=== PATIENT | male | born 2005 | race Caucasian/White ===

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

== ENCOUNTER 2024-07-13 23:58 | Emergency (ER) | payer OTHER, SELFPAY ==
[2024-07-13 23:59] VITALS: BP 136/75; PULSE 59; RESP 16; TEMP 36.2; O2SAT 97; BMI 24.3
--- NOTE | 2024-07-14 00:24 | EX.ED.DYSGE1 ---
HPI History of Present Illness Chief Complaint: Overdose [facility] PFS Medical History no medical history Home Medications ?Medication ?Instructions ?Recorded ?Last Taken ?Type multivitamin with minerals 1 ea PO DAILY 03/20/19 Unknown History clobazam 10 mg tablet 20 mg PO BID 07/13/19 05/11/20 06:45 History midazolam 5 mg/spray (0.1 mL) 5 mg NS PRN PRN Seizure 07/13/19 Unknown History nasal spray lacosamide 200 mg tablet 400 mg PO BID 05/04/20 05/11/20 06:45 History lacosamide 50 mg tablet 600 mg PO BID 05/04/20 05/11/20 06:45 History Allergy/AdvReac Type Severity Reaction Status Date / Time levetiracetam (From Keppra) Allergy Hives Verified 07/14/24 00:02 oxcarbazepine (From Allergy Low Verified 07/14/24 00:02 Trileptal) neutrophils shellfish derived Allergy PT UNABLE Verified 07/14/24 00:02 TO RESPOND-NEEDS F/U codeine AdvReac does not Verified 07/14/24 00:02 work Family History no significant family his Surgical History (Updated 07/14/24 @ 00:32 by Belen Waite) History of appendectomy Social History Smoking Status: Current every day smoker tobacco type: cigarettes EXAM Physical Exam Const Vital Signs: 07/13/24 23:59 07/14/24 01:00 07/14/24 02:00 Temperature 97.2 F L Temperature Source Oral Pulse Rate 59 L 64 Respiratory Rate 16 Blood Pressure 136/75 H 116/68 120/64 Blood Pressure Mean 95 84 82 Pulse Ox 97 100 97 Oxygen Delivery Method Room Air Room Air Room Air 07/14/24 03:00 07/14/24 03:12 Temperature 97.2 F L Temperature Source Pulse Rate 56 L 57 L Respiratory Rate 16 16 Blood Pressure 113/51 L 113/51 L Blood Pressure Mean 71 71 Pulse Ox 99 98 Oxygen Delivery Method Room Air MDM MDM MDM Narrative Medical decision making narrative: HISTORY OF PRESENT ILLNESS: Chief complaint: Accidental overdose 19-year-old male presents with concern for second dose of antiseizure medication taken. Patient notes he took additional doses of 20 mg of Onfi and 60 mg of lacosamide. Initial dose at 7:40 PM and subsequent dose at 9:40 PM. He notes slight fatigue and drowsiness otherwise no other symptomatology noted. No SI, HI endorsed. REVIEW OF SYSTEMS: Pertinent positives: N drowsiness, sleepiness Pertinent negatives: Chest pain, palpitations PHYSICAL EXAM: Nursing triage notes reviewed, Vital signs reviewed Constitutional: please see [facility] HENT: MMM Eyes: Pupils equal round and reactive to light, Extraocular muscles intact Neck: No stridor, no JVD, full neck ROM Lungs: Clear to auscultation, No wheezing or rales. No increased work of breathing, no conversational dyspnea, no accessory muscle use, no nasal flaring. No respiratory distress noted Heart: Regular rate and rhythm, No murmurs, No rubs and No gallops, 2+ distal pulses (radial, femoral, posterior tibial) in all extremities Abdomen: Soft, there is no tenderness, rigidity, rebound or guarding, no obvious peritoneal signs, no palpable pulsatile abdominal masses, no auscultated abdominal bruit : No CVAT Extremities: No edema Neuro: No new focal neurological deficits, cranial nerves II through XII intact, 5/5 strength in all present extremities. Intact sensation to light touch in all present extremities, 2+ reflexes bilateral patella tendons. Skin: No rash or lesions noted MEDICAL DECISION MAKING: Chief Complaint: please see HPI External records reviewed: Reviewed prior medications: Patient is currently on river acetate 100 mg twice daily, clobazam 200 mg twice daily, lacosamide 50 mg twice daily, lacosamide 200 mg twice daily, Versed 5 mg NS as needed for seizure Factors affecting care: seizure disorder Social determinants of health: none History obtained from others: none Consults: Vladislav (Poison Control)?discussed observation [facility] Narrative: Patient was initially hemodynamically stable, afebrile and nontoxic-appearing. Exam unremarkable. No sign of significant central stenosis of depression. ALL IMAGES (IF OBTAINED) HAVE BEEN PERSONALLY REVIEWED AND INTERPRETED BY MYSELF. EKG shows sinus bradycardia, rate of 46, normal axis, prolonged interval, first-degree AV block (no sign of high degree AV block), no STEMI CBC without leukocytosis, severe anemia, no thrombocytopenia. BMP without evidence of significant electrolyte abnormalities, no anion gap, no acute kidney injury. The patient's emergency evaluation fails reveal any life-limiting in the etiology. Lacosamide has a peak plasma time 1 to 4 hours which she was surpassed by time he arrived to the ED. He appeared well. No indication for intubation or further invasive testing at this time Discussed with poison control. Discussed with Vladislav. They recommended discharge after 6 hour obs. The patient and/or family, caregivers express understanding. The patient and/or family, caregivers agrees with the plan. Shared decision making: I will have a discussion with the patient and or visitors regarding risk/benefits of further testing or admission. They will be made aware of of the risk/benefits inherent in this decision they will be given the opportunity to voice understanding. Total critical care time today provided was at least 0 minutes. This excludes separately billable procedures. Critical care time (if documented) is secondary to the patient having high probability of clinically significant/life threatening deterioration in the patient's condition which required my urgent intervention. Impression: 1. Accidental overdose 2. History of seizure Dispo: Discharge home This note was generated with Subtextual dictation software. It may contain incorrect words, spelling, and punctuation that were not noted in review of the chart prior to signing. Lab Data Labs: Laboratory Results - last 24 hr 07/14/24 01:45 WBC 6.8 RBC 4.77 Hgb 14.0 Hct 39.3 L MCV 82.4 MCH 29.4 MCHC 35.6 RDW Std Deviation 37.2 RDW Coeff of Justus 12.3 Plt Count 264 MPV 8.9 Immature Gran % (Auto) 0.100 Neut % (Auto) 52.2 Lymph % (Auto) 35.1 [place] % (Auto) 9.7 Eos % (Auto) 2.6 Baso % (Auto) 0.3 Absolute Neuts (auto) 3.5 Absolute Lymphs (auto) 2.39 Nucleated RBC % 0 Sodium 141 Potassium 3.4 Chloride 103 Carbon Dioxide 25.5 Anion Gap 13 BUN 14 Creatinine 1.13 Estim Creat Clear Calc 120.23 Est GFR (MDRD) Non-Af 95 BUN/Creatinine Ratio 12.2 Glucose 86 Calcium 9.6 Discharge Plan Triage Chief Complaint: Overdose ED Provider: Alex Corley Dx/Rx/DC Orders Clinical Impression: Accidental drug ingestion Instructions: ED Accidental Ingestion ... Prescriptions: No Action multivitamin with minerals 1 EACH tablet 1 ea PO DAILY clobazam 10 MG tablet 20 mg PO BID midazolam 5 MG/0.1 ML spray,non-aerosol 5 mg NS PRN PRN (Reason: Seizure) lacosamide 50 MG tablet 600 mg PO BID lacosamide 200 MG tablet 400 mg PO BID Stand Alone Forms: ED Work / School Excuse Primary Care Provider: Corona Car Referrals: Corona Car MD [Primary Care Provider] - Activity Restrictions/Additional Instructions: Thank you for trusting us with your care today! Please return to the emergency department if your symptoms change or worsen. Please follow with your Neurologist for further outpatient evaluation and management. Print Language: Persian Disposition Disposition: Home, Self Care Discharge Date/Time: 07/14/24 03:36
[2024-07-14 01:00] VITALS: BP 116/68; O2SAT 100
--- OUTSIDE RECORDS SUMMARY | 2024-07-14 01:14 | XMS RPT_ITS | CCD ---
Author Organization [facility] Care Team Providers Care Gear Shaper Set Up Operator Name Role Phone Josep SIMS, Iva Aponte Primary Care Provider [phone] Josep SIMS, Iva Aponte Unavailable Josep SIMS, Iva Aponte Primary Care Provider [phone] Paddy SIMS, Elle Lewis Unavailable Josep SIMS, Iva Aponte Unavailable MARLON CORREA Attending UnavailBRIGID Lozoya Referring Unavailable JOSEP, IVA Aponte Primary Care Unavailable MARLON CORREA Attending Unavailgeri e IVA CAR Primary Care Unavailable Storm Tee Attending Unavailable Iva Car Referring Unavailable Josep, Iva Primary Care Unavailable JOSEP, IVA Aponte Primary Care Unavailable SHAYY MERINO Referring Unavailable JOSEP, IVA Aponte Primary Care Unavailable JOSEP, IVA Aponte Primary Care Unavailable JOSEP, IVA H Primary Care Unavailable IVA CAR Attending Unavailable IVA CAR Primary Care Unavailable Josep SIMS, Iva Aponte Primary Care Provider [phone] Josep SIMS, Iva Aponte Unavailable Allergies Allergy Classification Reported Allergen(s) Allergy Type Date of Onset Reaction(s) Facility (20 sources) Codeine; Translations: [CODEINE] Drug Allergy 0 Other: See Comments, Unknown [facility] Work Phone: (20 sources) levETIRAcetam; Translations: [LEVETIRACETAM] Drug Allergy 0 Rash [facility] (20 sources) OXcarbazepine; Translations: [OXCARBAZEPINE] Drug Allergy 0 Other: See Comments, Rash [facility] (20 sources) Seasonal allergy; Translations: [SEASONAL ALLERGIES] Allergy to substance 8 Cough [facility] Work Phone: (20 sources) Shellfish; Translations: [SHELLFISH CONTAINING PRODUCTS] Drug Allergy 0 Unknown [facility] Work Phone: (1 source) Codeine Drug Allergy 1 [facility] Rep[facility] (1 source) levETIRAcetam Drug Allergy 1 [facility] (1 source) OXcarbazepine Drug Allergy 1 [facility] Medications Current Medications Medication Drug Class(es) Dates Sig (Normalized) Sig (Original) cetirizine hydrochloride 10 mg oral tablet (2 sources) Histamine-1 Receptor Antagonist Start: 06-19-2022 End: 07-19-2022 take 1 tablet by mouth once daily cetirizine (ZYRTEC) 10 mg tablet Indications: Acute urticaria Take 1 tablet by mouth once daily. 30 tablet 0 06/19/2022 07/19/2022 Active Comment on above: Take 1 tablet by lucas once daily. cloBAZam 10 mg oral tablet (20 sources) Benzodiazepine Start: 02-06-2024 End: 08-04-2024 take 2 tablets by mouth twice daily cloBAZam (ONFI) 10 mg tab tablet Indications: Partial epilepsy with intractable epilepsy (HCC) Take 2 tablets by mouth two times a day for 180 days. 360 tablet 1 02/06/2024 08/04/2024 Active Start: 11-06-2022 End: 11-20-2022 take 2 tablets by mouth twice daily cloBAZam (ONFI) 10 mg tab tablet Indications: Partial epilepsy (HCC) Take 2 tablets by mouth twice daily for 14 days. 56 tablet 0 11/06/2022 11/20/2022 Active Start: 01-16-2021 End: 07-29-2024 take 1 tablet by mouth twice daily cloBAZam (ONFI) 10 mg tab tablet Indications: Partial epilepsy with intractable epilepsy (HCC) Take (2) tablets by mouth twice daily (= 40 mg/d) 360 tablet 1 07/31/2023 02/06/2024 Discontinued Start: 07-08-2020 End: 10-14-2020 take 1 tablet by mouth twice daily cloBAZam (ONFI) 10 mg tab tablet Indications: Partial epilepsy with intractable epilepsy (HCC) Take (2) tablets by mouth twice daily (= 40 mg/d) 120 tablet 3 07/08/2020 10/14/2020 Discontinued Comment on above: Take (2) tablets by mouth twice daily (= 40 mg/d) Take 2 tablets by mo [facility] twice daily for 14 days. famotidine 20 mg oral tablet (2 sources) Histamine-2 Receptor Antagonist Start: 06-20-19 End: 07-20-19 take 1 tablet by mouth twice daily famotidine (PEPCID) 20 mg tablet Indications: Acute urticaria Take 1 tablet by mouth twice daily. 60 tablet 0 06/19/2022 07/19/2022 Active Comment on above: [facility] fluticasone propionate 0.05 mg/actuat metered dose nasal spray (4 sources) Corticosteroid Start: 02-11-20 take 2 spray(s) by mouth once daily fluticasone (FLONASE) 50 mcg/actuation nasal spray Use 2 Sprays in each nostril once daily. Rinse mouth after use. 16 g 02/11/2024 Active lacosamide 200 mg oral tablet (20 sources) Anti-epileptic Agent Start: 10-26-19 End: 12-16-19 take 2 tablets by mouth once daily in the morning, then take 3 tablets by mouth once daily at bedtime lacosamide (VIMPAT) 200 mg Indications: Partial epilepsy (HCC) TAKE 2 TABLETS BY MOUTH EVERY MORNING AND 3 TABLETS DAILY AT BEDTIME. 450 tablet 1 06/18/2024 12/15/2024 Active Start: 08-27-2022 End: 08-26-2023 lacosamide (VIMPAT) 200 mg I ndications: Partial epilepsy (HCC) Take 2 tab twice daily (=800 mg/day) 360 tablet 1 08/27/2022 10/25/2022 Discontinued Start: 05-08-2022 End: 05-07-2023 lacosamide (VIMPAT) 150 mg t ab Indications: Partial epilepsy (HCC) Take 1 tab twice daily (takes 2 pill sizes) 180 tablet 1 05/08/2022 08/27/2022 Discontinued Start: 08-16-2021 End: 03-27-2023 lacosamide (VIMPAT) 100 mg t ab Indications: Partial epilepsy (HCC) Take 1 tab twice daily (takes 2 pill sizes) 180 tablet 1 03/28/2022 05/08/2022 Discontinued Start: 01-17-2021 End: 07-28-2022 lacosamide (VIMPAT) 50 mg ta b Indications: Partial epilepsy with intractable epilepsy (HCC) 1 tab twice daily (2 pill sizes) 180 tablet 1 07/28/2021 07/28/2022 Active Start: 01-17-2021 End: 03-27-2023 lacosamide (VIMPAT) 200 mg I ndications: Partial epilepsy (HCC) Take 1 tab twice daily (takes 2 pill sizes) 180 tablet 1 03/28/2022 08/27/2022 Discontinued Start: 04-28-2020 End: 09-16-2020 lacosamide (VIMPAT) 200 mg I ndications: Partial epilepsy with intractable epilepsy (HCC) Take one tablet twice a day 180 tablet 1 04/28/2020 09/16/2020 Discontinued Start: 04-28-2020 End: 07-19-2020 lacosamide (VIMPAT) 50 mg ta b Indications: Partial epilepsy with intractable epilepsy (HCC) 1 tab twice daily (2 pill sizes) 180 tablet 1 04/28/2020 07/19/2020 Discontinued (Discontinued by another Health Care Provider) Comment on above: 1 tab twice daily (2 pill sizes) Take one tablet twic e a day Take one tablet twic e a day (along with 200 mg tabs, = 600 mg/day) Take one tablet twic e a day (along with 100 mg tabs, = 600 mg/day) Take one tablet twic e a day (with 100 mg tabs, = 300 mg/day) Take 1 tab twice rubi ly (takes 2 pill sizes) Take 2 tab twice rubi ly (=800 mg/day) Take 2 tabs in am an d 3 tabs in pm = 1000 mg/d Take 2 tablets by mo uth every morning AND 3 tablets daily at bedtime. mens gummy multivitamin (CENTRUM) chewable tablet (20 sources) take 1 tablet by mouth once daily mens gummy multivitamin (CENTRUM) chewable tablet Take 1 tablet by mouth once daily. Active take 1 tablet by mouth once nicolás y mens gummy multivitamin (CENTRUM) chewable tablet Take 1 tablet by mouth once daily. 0 Active Comment on above: Take 1 tablet by lucas once daily. midazolam 50 mg/ml nasal spray (20 sources) Benzodiazepine Start: 05-07-2022 End: 04-30-2023 midazolam (NAYZILAM) 5 mg/spray (0.1 mL) nasal spray Indications: Partial epilepsy with intractable epilepsy (HCC) Give 5 mg (0.1 ml) as a single dose in ONE nostril for seizure cluster or prolonged seizure lasting > 3 minutes. The same dose may be repeated in 10 minutes in the OTHER nostril if the seizure continues after the first dose. 2 Each 05/07/2022 Active Start: 04-03-2021 End: 03-29-2022 midazolam (NAYZILAM) 5 mg/sp ray (0.1 mL) nasal spray Indications: Partial epilepsy with intractable epilepsy (HCC) Give 5 mg (0.1 ml) as a single dose in ONE nostril for seizure cluster or prolonged seizure lasting > 3 minutes. The same dose may be repeated in 10 minutes in the OTHER nostril if the seizure continues after the first dose. 2 Each 0 04/03/2021 Active Start: 06-10-2020 End: 08-17-2020 midazolam (NAYZILAM) 5 mg/sp ray (0.1 mL) nasal spray Indications: Partial epilepsy with intractable epilepsy (HCC) Give 5 mg (0.1 ml) as a single dose in ONE nostril for seizure cluster or prolonged seizure lasting > 3 minutes. The same dose may be repeated in 10 minutes in the OTHER nostril if the seizure continues after the first dose. 4 [place] 06/10/2020 08/17/2020 Discontinued Comment on above: Give 5 mg (0.1 ml) a s a single dose in ONE nostril for seizure cluster or prolonged seizure lasting > 3 minutes. The same dose may be repeated in 10 minutes in the OTHER nostril if the seizure continues after the first dose. oseltamivir 75 mg oral capsule (1 source) Neuraminidase Inhibitor Start: 4 End: 4 take 1 capsule by mouth twice daily oseltamivir (TAMIFLU) 75 mg capsule Take 1 capsule by mouth two times a day for 5 days. 10 capsule 0 04/28/2023 05/03/2023 Active Comment on above: Take 1 capsule by mo [facility] two times a day for 5 days. Completed/Discontinued Medications Medication Drug Class(es) Dates Sig (Normalized) Sig (Original) brivaracetam 100 mg oral tablet (18 sources) Start: 01-17-2021 End: 01-17-2022 take 1 tablet by mouth twice daily brivaracetam (BRIVIACT) 100 mg tablet Indications: Partial epilepsy with intractable epilepsy (HCC) Take 1 tablet by mouth twice daily. 180 tablet 3 01/17/2021 09/08/2021 Discontinued (Course of therapy completed) Start: 06-30-2020 End: 10-14-2020 take 1 tablet by mouth twice daily brivaracetam (BRIVIACT) 100 mg tablet Indications: Partial epilepsy with intractable epilepsy (HCC) Take 1 tablet by mouth twice daily. 60 tablet 5 06/30/2020 10/14/2020 Discontinued Comment on above: [facility] Problems Active Problems Problem Classification Problem Date Documented Da te Episodic/Chronic Adjustment disorders (20 sources) Adjustment disorder with mixed anxiety and depressed mood; Translations: [Adjustment disorder with mixed anxiety and depressed mood] Onset: 10-14-2020 10-14-2020 Chronic Allergic reactions (1 source) Acute urticaria; Translations: [Other urticaria] Episodic Attention-deficit, conduct, and disruptive behavior disorders (20 sources) Attention deficit hyperactivity disorder, predominantly inattentive type; Translations: [Attention-deficit hyperactivity disorder, predominantly inattentive type] Onset: 11-30-2015 11-30-2015 Chronic Epilepsy; convulsions (20 sources) Refractory localization-related epilepsy; Translations: [Localization-relate d (focal) (partial) symptomatic epilepsy and epileptic syndromes with simple partial seizures, intractable, without status epilepticus] Onset: 03-22-2019 Resolved: 02-29-2020 02-29-2020 Chronic Fever of unknown origin (1 source) Fever; Translations: [Fever, unspecified] Episodic Immunizations and screening for infectious disease (2 sources) Suspected disease caused by 2019-nCoV; Translations: [Suspected COVID-19 virus infection] Episodic Other bone disease and musculoskeletal deformities (1 source) Clavicle pain; Translations: [Other specified disorders of bone, shoulder] 05-31-2022 Episodic Other connective tissue disease (1 source) Pain of left thigh; Translations: [Pain in left thigh] 07-13-2020 Episodic Other eye disorders (1 source) Swelling of eyelid; Translations: [Edema of right eye, unspecified eyelid] 03-31-2023 Episodic Other upper respiratory infections (7 sources) Sore throat symptom; Translations: [Acute pharyngitis, unspecified] Episodic Sprains and strains (1 source) Strain of muscle, fascia and tendon of other parts of biceps, right arm, initial encounter; Translations: [Sprains and strains of other specified sites of shoulder and upper arm] 12-23-2023 Episodic Past or Other Problems Problem Classification Problem Date Documented Da te Episodic/Chronic Appendicitis and other appendiceal conditions (18 sources) Acute appendicitis; Translations: [Unspecified acute appendicitis] Onset: 03-02-2014 Resolved: 11-24-2015 11-24-2015 Episodic Viral infection (20 sources) Infectious mononucleosis; Translations: [Infectious mononucleosis, unspecified without complication] Onset: 03-11-2020 Resolved: 02-06-2021 Episodic Results Test Name Value Interpretation Reference Range Facility CLOBAZAMon 05-02-2024 Clobazam 414.0 ng/mL High 30 - 300 ng/mL [facility] Desmethylclobazam 1130.0 ng/mL 300 - 3000 ng/mL [facility] Comment on above: ADDITIONAL INFORMATION This test was developed and its performance characteristics determined by [facility] in a manner consistent with CLIA requirements. This test has not been cleared or approved by the U.S. Food and Drug Administration. Test Performed by: [facility] - [address] [place] [address] Salon Customer Experience Specialist: Zafar Aviles Ph.D.; CLIA# [id number] Interpretation and review of laboratory results Abnormal [facility] LACOSAMIDEOrdered By: Eduin Oropeza on 05-01-2024 Interpretation and review of laboratory results Normal [facility] Lacosamide [Mass/Vol] 11.6 ug/mL 2.2 - 19.8 ug/mL [facility] Comment on above: Expected concentrati on of patients receiving 200-400 mg/day is 2.2-19.8 ug/mL for Lacosamide. This test was developed, and its performance characteristics determined by the [facility] Department of Pathology and Laboratory Medicine. It has not been cleared or approved by the FDA. The [facility] Department of Pathology and Laboratory Medicine is regulated under CLIA as qualified to perform high-complexity testing. This test is used for clinical purposes. It should not be regarded as investigational or for research. [facility] CLOBAZAMon 04-29-2024 CLOBAZAM 414.0 ng/mL High 30-300 [facility] Comment on above: Order Comment: Erum crowe Type: BLOOD SPECIMEN Ordering Facility: [facility] Address: [address] [place] [address] Performed By: ###Anadn WILD #### [facility] CLIA [id number] [address] [place] [address] DESMETHYLCLOBAZAM 1130.0 ng/mL Normal 300-3000 [facility] Comment on above: Order Comment: Erum crowe Type: BLOOD SPECIMEN Ordering Facility: [facility] Address: [address] [place] [address] Result Comment: ADDITIONAL INFORMATION This test was developed and its performance characteristics determined by [facility] in a manner consistent with CLIA requirements. This test has not been cleared or approved by the U.S. Food and Drug Administration. Test Performed by: [facility] [address] [place] [address] Salon Customer Experience Specialist: Zafar Aviles Ph.D.; CLIA# [id number] Performed By: #### Cynthia WILD #### [facility] CLIA [id number] [address] [place] [address] LACOSAMIDEon 04-29-2024 Lacosamide [Mass/Vol] 11.6 ug/mL Normal 2.2-19.8 [facility] Comment on above: Order Comment: Erum crowe Type: BLOOD SPECIMEN Ordering Facility: [facility] Address: [address] [place] [address] Result Comment: Expe cted concentration of patients receiving 200-400 mg/day is 2.2-19.8 ug/mL for Lacosamide. This test was developed, and its performance characteristics determined by the [facility] Department of Pathology and Laboratory Medicine. It has not been cleared or approved by the FDA. The [facility] Department of Pathology and Laboratory Medicine is regulated under CLIA as qualified to perform high-complexity testing. This test is used for clinical purposes. It should not be regarded as investigational or for research. Performed By: #### L ACOS #### [facility] CLIA [id number] [address] [place] [address] [place] CNOVon 02-24-2024 CNOV Office Visit ([facility] ) ESTRELLA CARROLL ([id number]) 1 M Date Time Provider Department 02/24/24 2:45 PM BRIGIDA RUIZ [facility] During your visit today, we recorded the following information about you: Temperature Pulse Respiration Blood pressure 98.4 degrees 55/minute 17/minute 130/70 Weight 85.3 kg Brigida Ruiz APRN.MERCHANDISER RETAIL REPRESENTATIVE 02/24/2024 2:07 PM Signed Subjective HPI HPI Estrella Carroll is a 19 year old male who presents today for CC of cough/improving, h/a, chills, stomach ache. This started 1 day ago. Has tried otc medication for relief. Symptoms are worsened by nothing. Risk factors sick exposures at home with similar s/s. 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 lacosamide (VIMPAT) 200 mg TAKE 2 TABLETS BY MOUTH EVERY MORNING AND 3 TABLETS DAILY AT BEDTIME. midazolam (NAYZILAM) 5 mg/spray (0.1 mL) nasal spray Give 5 mg (0.1 ml) as a single dose in ONE nostril for seizure cluster or prolonged seizure lasting > 3 minutes. The same dose may be repeated in 10 minutes in the OTHER nostril if the seizure continues after the first dose. mens gummy multivitamin (CENTRUM) chewable tablet Take 1 tablet by mouth once daily. fluticasone (FLONASE) 50 mcg/actuation nasal spray Use 2 Sprays in each nostril once daily. Rinse mouth after use. (Patient not taking: Reported on 02/24/2024) FAMILY HISTORY Problem Relation Age of Onset other (diverticulitis) Maternal Grandmother other (LEUKEMIA) Maternal Grandfather Social History Tobacco Use Smoking status: Never Passive exposure: Never Smokeless tobacco: Never Vaping Use Vaping status: Never Used Substance Use Topics Alcohol use: No Drug use: No Review of Systems Constitutional: Negative for fever. HENT: Negative for congestion, ear pain, nosebleeds and sore throat. Respiratory: Positive for cough. Negative for shortness of breath and wheezing. Gastrointestinal: Negative for constipation, diarrhea, nausea and vomiting. Musculoskeletal: Negative for neck pain. Skin: Negative for itching. Neurological: Positive for headaches. Objective Blood pressure 130/70, pulse (!) 55, temperature 36.9 ?C (98.4 ?F), resp. rate 17, weight 85.3 kg (188 lb 0.8 oz), SpO2 100%. Physical Exam Constitutional: General: He is not in acute distress. Appearance: Normal appearance. He is not toxic-appearing or diaphoretic. HENT: Head: Normocephalic and atraumatic. Mouth/Throat: Lips: [place]. Mouth: Mucous membranes are moist. Pharynx: Oropharynx is clear. Uvula midline. Cardiovascular: Rate and Rhythm: Normal rate and regular rhythm. Heart sounds: Normal heart sounds, S1 normal and S2 normal. Pulmonary: Effort: Pulmonary effort is normal. Breath sounds: Normal breath sounds. Abdominal: General: Bowel sounds are normal. Palpations: Abdomen is soft. Tenderness: There is no abdominal tenderness. Lymphadenopathy: Cervical: No cervical adenopathy. Right cervical: No superficial cervical adenopathy. Left cervical: No superficial cervical adenopathy. Skin: General: Skin is warm and dry. Neurological: Mental Status: He is alert and oriented to person, place, and time. Gait: Gait is intact. ASSESSMENT/PLAN: 1. Viral syndrome - ICD9: 079.99, ICD10: B34.9 - Discussed viral etiology and rationale for treatment. - Symptomatic treatment with prn analgesia - Supportive care with fluids and rest - Follow up in 3-5 days if symptoms persist or sooner if worsening of symptoms Brigida Ruiz APRN.MERCHANDISER RETAIL REPRESENTATIVE Allergies As of Date: 02/24/2024 Noted Allergy Reaction CODEINE 07/14/2019 14 - Other: See Comments 16 - Unknown Comments: Aversion LEVETIRACETAM 04/15/2019 2 - Rash OXCARBAZEPINE 04/16/2019 14 - Other: See Comments 2 - Rash Comments: Neutropenia, hyponatremia SEASONAL ALLERGIES 05/27/2017 3 - Cough SHELLFISH CONTAINING PRODUCTS 08/11/2019 16 - Unknown Comments: Pre caution dad is allergic Date Reviewed: 02/24/2024 Reviewed by: Rola Cheek MA - Fully Assessed Reason for Visit: Abdominal Pain [1] Cmt: Pressure in head(BETHEA), hot and cold chills x 1 day Primary Visit Diagnosis:Viral syndrome [B34.9] Prescriptions as of 02/24/2024 - fluticasone (FLONASE) 50 mcg/actuation nasal sp (more content not included)... Normal [facility] CNOVon 02-11-2024 CNOV Office Visit ([facility] ) ESTRELLA CARROLL ([id number]) 1 M Date Time Provider Department 02/11/24 2:15 PM CA JOHNSON [facility] During your visit today, we recorded the following information about you: Temperature Pulse Respiration Blood pressure 98.8 degrees 76/minute 16/minute 132/78 Weight 86.7 kg Ca Johnson, HANY.MERCHANDISER RETAIL REPRESENTATIVE 02/11/2024 1:56 PM Signed Subjective Sore Throat Associated symptoms include congestion and coughing. Pertinent negatives include no diarrhea, ear pain or vomiting. Estrella Carroll is a 18 year old male who presents with sore throat for the past 3 or 4 days. He had one day of fever at onset of illness. He has had nasal congestion and drainage. He rates his sore throat pain 3/10. Review of Systems Constitutional: Negative for chills, fever and malaise/fatigue. HENT: Positive for congestion and sore throat. Negative for ear pain. Respiratory: Positive for cough. Cardiovascular: Negative. Gastrointestinal: Negative for diarrhea, nausea and vomiting. Musculoskeletal: Negative for myalgias. BP 132/78 Pulse 76 Temp 37.1 ?C (98.8 ?F) (Tympanic) Resp 16 Wt 86.7 kg (191 lb 2.2 oz) SpO2 100% BMI 24.54 kg/m? 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 lacosamide (VIMPAT) 200 mg TAKE 2 TABLETS BY MOUTH EVERY MORNING AND 3 TABLETS DAILY AT BEDTIME. midazolam (NAYZILAM) 5 mg/spray (0.1 mL) nasal spray Give 5 mg (0.1 ml) as a single dose in ONE nostril for seizure cluster or prolonged seizure lasting > 3 minutes. The same dose may be repeated in 10 minutes in the OTHER nostril if the seizure continues after the first dose. mens gummy multivitamin (CENTRUM) chewable tablet Take 1 tablet by mouth once daily. FAMILY HISTORY Problem Relation Age of Onset other (diverticulitis) Maternal Grandmother other (LEUKEMIA) Maternal Grandfather Social History Tobacco Use Smoking status: Never Passive exposure: Never Smokeless tobacco: Never Vaping Use Vaping status: Never Used Substance Use Topics Alcohol use: No Drug use: No Objective Physical Exam Vitals and nursing note reviewed. Constitutional: General: He is not in acute distress. Appearance: Normal appearance. He is not ill-appearing. HENT: Right Ear: Tympanic membrane, ear canal and external ear normal. Left Ear: Tympanic membrane, ear canal and external ear normal. Nose: Congestion and rhinorrhea present. Mouth/Throat: Mouth: Mucous membranes are moist. Pharynx: Uvula midline. Posterior oropharyngeal erythema and postnasal drip present. No oropharyngeal exudate. Cardiovascular: Rate and Rhythm: Normal rate and regular rhythm. Heart sounds: Normal heart sounds. Pulmonary: Effort: Pulmonary effort is normal. No respiratory distress. Breath sounds: Normal breath sounds. No wheezing or rales. Musculoskeletal: Cervical back: Neck supple. Lymphadenopathy: Cervical: No cervical adenopathy. Skin: General: Skin is warm and dry. Findings: No erythema or rash. Neurological: Mental Status: He is alert. ASSESSMENT/PLAN: 1. Sore throat - ICD9: 462, ICD10: J02.9 - suspect viral - Group A strep molecular testing negative - Discussed supportive care treatment with fluids, rest and analgesia. - STREP A MOLECULAR (POC) - flonase nasal spray, cepacol lozenges, chloraseptic spray for sore throat relief. - Follow-up with your PCP in 3-5 days if symptoms have not improved or sooner if symptoms worsen - Discussed red flags and need for immediate medical evaluation if any occur. - Discussed supportive care treatment with fluids, rest and analgesia. - Discussed expected course of illness Ca Johnson APRN.Ca Gastelum APRN.MERCHANDISER RETAIL REPRESENTATIVE 02/11/2024 1:56 PM Signed ASSESSMENT/PLAN: 1. Sore throat - ICD9: 462, ICD10: J02.9 - suspect viral - Group A strep molecular testing negative - Discussed supportive care treatment with fluids, rest and analgesia. - STREP A MOLECULAR (POC) - flonase nasal spray, cepacol lozenges, chloraseptic spray for sore throat relief. - Follow-up with your PCP in 3-5 days if symptoms have not improved or sooner if symptoms worsen - Discussed red flags and need for immediate medical evaluation if any occur. - Discussed supportive care treatment with fluids, rest and analgesia (more content not included)... Normal [facility] STREP A MOLECULAR (POC)on Procedural Control Valid [facility] Strep A (POCT) Negative Negative [facility] Office Visit Reporton 2023 Office Visit Report [facility] [address] [place] [address] OFFICE VISIT Date of Service: 12/25/23 MR#: [id number] Acct: [id number] Patient: ESTRELLA CARROLL Rep #: [id number] : 2005 Provider: CLINT Thomas Age/Sex: 18/M Location: [facility]NOW Status: Signed Intake Vital Signs 05/11/20 11:54 Height 6 ft 2 in Intake Visit Reasons: PE NON DOT DRUG SCREEN/ [facility] Chief Complaint: ABD PAIN Allergies levetiracetam (From Keppra) Allergy (Verified 05/11/20 11:49) Hives oxcarbazepine (From Trileptal) Allergy (Verified 05/11/20 11:49) Low neutrophils codeine Adverse Reaction (Verified 05/11/20 11:49) does not work Office Procedures Now Clinic Billing Sheet Testing Drug Screen Collection Only: Yes 12/25/23 1557 Date Storm JARAMILLO Cosigner Signature: Date (if applicable) CC: [facility] 12-12-2023 CN Office Visit (PEDSWS ) ESTRELLA CARROLL ([id number]) 1 M Date Time Provider Department 12/12/23 10:30 AM IVA CAR PEDSWS During your visit today, we recorded the following information about you: Temperature Pulse Respiration Weight 97.8 degrees 60/minute 14/minute 83.2 kg Iva Car MD 12/23/2023 10:35 AM Signed Estrella Carroll is a 18-year-old [id number] athletic and healthy male who presents to the office today for concerns of right arm and posterior shoulder discomfort present for the last several days after lifting weights. Patient is athletic and is well versed in proper technique. He states the pain is improving. No complaints of weakness or paresthesias in the right arm. 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 PAST MEDICAL HISTORY Diagnosis Date COVID-19 virus infection 03/11/2020 positive PCR test 03/11/20 COVID-19 virus infection 03/11/2020 positive PCR test 03/11/20 Epilepsy (HCC) Partial epilepsy with intractable epilepsy (HCC) 02/29/2020 PAST SURGICAL HISTORY Procedure Laterality Date CIRCUMCISION LAPAROSCOPIC APPENDECTOMY 02-21-14 OPEN TX CLAVICULAR FRACTURE INTERNAL FIXATION ALLERGIES Allergen Reactions Codeine Other: See Comments, Unknown Aversion Levetiracetam Rash Oxcarbazepine Other: See Comments, Rash Neutropenia, hyponatremia Seasonal Allergies Cough Shellfish Containin* Unknown Pre caution dad is allergic 12/12/23 1040 Pulse: 60 Resp: 14 Temp: 36.6 ?C (97.8 ?F) TempSrc: Temporal Weight: 83.2 kg (183 lb 6.4 oz) Inspection: Shoulder: No visible deformities, swelling, or asymmetry. Skin over the shoulder area is intact with no discoloration or scars. Elbow: No deformities, swelling, or redness. Skin is intact without any lesions or scars. Palpation: Shoulder: No tenderness upon palpation of the clavicle, acromioclavicular joint, scapula, or humeral head. No palpable masses or abnormalities. Elbow: No tenderness over the lateral or medial epicondyles, olecranon, or radial head. No warmth or swelling noted. Range of Motion (ROM): Shoulder: Flexion: 0 to 180 degrees Extension: 0 to 60 degrees Abduction: 0 to 180 degrees Adduction: 0 to 50 degrees Internal Rotation: 0 to 90 degrees External Rotation: 0 to 90 degrees Elbow: Flexion: 0 to 150 degrees Extension: 0 degrees (full extension) Pronation: 0 to 80 degrees Supination: 0 to 80 degrees Strength: Shoulder: Muscle strength is 5/5 in all directions (flexion, extension, abduction, adduction, internal rotation, and external rotation). Elbow: Muscle strength is 5/5 for flexion and extension. Special Tests: Shoulder: Negative Neer?s and Hammond-Cristiano tests (impingement). Negative Drop Arm test (rotator cuff integrity). Negative Apprehension test (shoulder stability). Negative Speed's test Elbow: Negative Tinel?s sign over the ulnar nerve. Negative Cozen?s test (lateral epicondylitis). Negative Golfer?s elbow test (medial epicondylitis). Neurovascular: Intact sensation over the shoulder and elbow regions. Radial, ulnar, and brachial pulses are strong and equal bilaterally. ASSESSMENT/PLAN: 1. Biceps strain, right, initial encounter - ICD9: 840.8, ICD10: S46.211A Reassurance given his normal examination. Recommend resting from his particular routine at this time for the next 7 to 10 days. May use ibuprofen 400 mg every 8 hours as needed for pain or discomfort. I spent a total of 25 minutes on the date of the service which included preparing to see the patient, [id number] patient care, completing clinical documentation, obtaining and/or reviewing separately obtained history, performing a medically appropriate examination, counseling and educating the patient/family/caregi joshua, and ordering medications, tests, or procedures. Follow-up prn Iva Car MD [facility] Department of Pediatrics, Mike [facility] Allergies As of Date: 12/12/2023 Noted Allergy Reaction CODEINE 07/14/2019 14 - Other: See Comments 16 - Unknown Comments: Aversion LEVETIRACETAM 04/15/2019 2 - Rash OXCARBAZEPINE 04/16/2019 14 - Other: See Comments 2 - Rash Comments: Neutropenia, hyponatremia SEASONAL ALLERGIES 05/27/2017 3 - Cough SHELLFISH CONTAINING PRODUCTS 08/11/2019 16 - Unknown Comments: Pre caution dad is allergic Date Reviewed: 12/12/2023 Reviewed by: Deana Llamas MA - Fully Assessed Reason for Visit: Back and Arm pain [Other] Cmt: R arm and back pain x4 days Primary Visit Diagnosis:Biceps strain, right, initial encounter [S46.211A] Prescriptions as of 12/23/2023 - lacosamide (VIMPAT) 200 mg TAKE 2 TABLETS BY MOUTH EVERY MORNING AND 3 TABLETS DAILY AT BEDTIME. - cloBAZam (ONFI) 10 mg tab tablet Take (2) tablets by m (more content not included)... Normal [facility] CNOVon 11-27-2023 CNOV Office Visit (NEEPBA ) ESTRELLA CARROLL ([id number]) 1 M Date Time Provider Department 11/27/23 10:20 AM MARLON CORREA During your visit today, we recorded the following information about you: Pulse Respiration Blood pressure Weight 47/minute 16/minute 126/71 81.6 kg Height 1.88 m Marlon Correa MD 11/27/2023 10:37 AM Signed Summary of the things we discussed today: Continue Vimpat and Onfi unchanged. We will check a blood level of your seizure medications. Please have your blood drawn before you take your morning dose of seizure medications or in the evening ( at least 8 hrs after you take your medications). Please call my office if you have more seizures or with any seizure related concerns. Seizure precautions - No driving in the state of [place] until seizure free for 6 months. Please check with local state authorities for state specific driving regulations. - No operating heavy machines - No swimming without supervision or bathing in a bathtub due to risk of drowning in the event of a seizure. Patient may shower. - Avoid unsafe heights, including ladders, due to risk of fall-related injury in the event of a seizure. - Seizure precipitating factors discussed including not taking seizure medications as prescribed, stress, excessive caffeine intake, energy drinks, alcohol, sleep deprivation or any identifiable seizure precipitating factor. Marlon Correa MD Associate Staff, Epilepsy [facility] November 27, 2023 Office phone: [phone] Marlon Correa MD 12/09/2023 2:52 PM Signed [facility] Patient Name: Estrella Carroll Date of : 2005 ESTABLISHED EPILEPSY CLINIC NOTE 11/27/2023 10:20 AM Reason for Visit: Follow Up and Epilepsy Clinical Summary: Mr. Carroll is a 18 year old right-handed male seen in [facility]. EPILEPSY CLASSIFICATION Focal Epilepsy Left hemisphere Seizures: 1. Right Leg Somatosensory Aura -> Right Versive Seizure -> Generalized Tonic-Clonic Seizure HISTORY OF PRESENT ILLNESS Handedness: right-handed Age of onset: Seizure History and Evolution EPILEPSY CLASSIFICATION: Focal epilepsy (left hemisphere) SEIZURES: Right leg somatosensory -> Right versive -> Generalized tonic clonic seizures MRI: Normal ([facility]) ETIOLOGY: Unknown EEG: Left temporo-parietal sharp waves ([facility] - by report - not confirmed upon review of selected samples) ASSOCIATED CONDITIONS: Anxiety, ADHD Weight by report: 89 kg Blaise had onset of seizures at 14 years of age. On 03/20/2019, Blaise had onset of seizures with a cluster of 3 seizures in about 12 hours. The first involved confusion and garbled speech, and the next 2 evolved to generalized tonic clonic convulsion. In retrospect, about a week earlier, he had a missed seizure in his bedroom - he felt the paranoia that he later realized was his aura, walked to close the door, blacked out, and woke up in his bed with a black eye. On 03/20/2019, Blaise was admitted to [facility] where EEG was interpreted to show left temporo-parietal sharp waves {not appreciated on the samples sent for review] and MRI was normal. He was started on oxcarbazepine. Subsequent lab work showed hyponatremia and neutropenia. In late 03/2019, a transition to levetiracetam was initiated. Six days after starting levetiracetam, and about 1 month after starting oxcarbazepine, he developed a whole body rash. Both drugs were stopped, and he was started on clobazam. Since then, seizures have remained a concern. Features included an aura of paranoia and confusion, garbled speech, and tingling in the right foot which spread to the right leg and the then right side of the head for about 45 seconds. He usually signaled the seizure vocally, saying Mom or Dad or grunting. He then lay down on the floor on his side in a position, and as he blacked out his head jerked to the right with evolution to whole body stiffening and tremor with extension of the arms, fisting of the hands, grunting, labored breathing, and foaming at the mouth, without tongue bite or urine loss (video reviewed). Convulsions lasted 60 to 80 seconds, followed by headache and sleep. After medication was started, the tingling began on the right side of the head, without origin in the right foot and leg. In addition, he has also had a few seizures with the typical aura of paranoia and confusion, with garbled speech and no further evolution. All but one of his seizures have occurred while awake. Sleep deprivation is a trigger. Since onset of seizures in 03/2019, Felix has had the following events. - 04/2019 - 1 seizure on clobazam 20 mg/d - 04/2019 to 01/2020 - episodes of brain fog for a few seconds or minutes, with no outward sign, recurring o (more content not included)... Normal [facility]anna 11-22-2023 JEFF Telephone (NE50MN) ESTRELLA CARROLL Ehsan ([id number]) 1 M Date Time Provider Department 11/22/23 MARLON CORREA [id number] During your visit today, we recorded the following information about you: Joanne Mcgarry 11/22/2023 2:39 PM Signed Medication Concern Person Calling Ellen Carroll -mom cell Name of medication vimpat, onfi Concern with medication forgot to take morning dose today. Should he take morning dose now? Patient of Lata Camacho RN 11/22/2023 3:26 PM Signed LCM 400/600 CLB CHOLO Chapa Kelly, APRN.MERCHANDISER RETAIL REPRESENTATIVE 11/22/2023 3:41 PM Signed Yes would take right away and then pm doses late tonight as possible Lata Rose RN 11/22/2023 3:47 PM Signed Informed the patient's mother of recommendations. The patient took ASM's at 3:10, will take PM dose late tonight as possible. Lata Rose RN Allergies As of Date: 11/22/2023 Noted Allergy Reaction CODEINE 07/14/2019 14 - Other: See Comments 16 - Unknown Comments: Aversion LEVETIRACETAM 04/15/2019 2 - Rash OXCARBAZEPINE 04/16/2019 14 - Other: See Comments 2 - Rash Comments: Neutropenia, hyponatremia SEASONAL ALLERGIES 05/27/2017 3 - Cough SHELLFISH CONTAINING PRODUCTS 08/11/2019 16 - Unknown Comments: Pre caution dad is allergic Date Reviewed: 09/09/2023 Reviewed by: Jaime Torres APRN.MERCHANDISER RETAIL REPRESENTATIVE - Fully Assessed Reason for Visit: medication concern [Other] Cmt: vimpat, onfi Prescriptions as of 11/22/2023 - cloBAZam (ONFI) 10 mg tab tablet Take (2) tablets by mouth twice daily (= 40 mg/d) - lacosamide (VIMPAT) 200 mg Take 2 tablets by mouth every morning AND 3 tablets daily at bedtime. - midazolam (NAYZILAM) 5 mg/spray (0.1 mL) nasal spray Give 5 mg (0.1 ml) as a single dose in ONE nostril for seizure cluster or prolonged seizure lasting > 3 minutes. The same dose may be repeated in 10 minutes in the OTHER nostril if the seizure continues after the first dose. - mens gummy multivitamin (CENTRUM) chewable tablet Take 1 tablet by mouth once daily. Meds Comments as of 11/03/2013: Problem List As Of Date 11/22/2023 Noted Resolved Acute appendicitis [K35.80] 03/02/2014 11/24/2015 ADHD, predominantly inattentive type [F90.0] 11/30/2015 Localization-related (focal) (partial) idiopath*03/22/2019 02/29/2020 Partial epilepsy (HCC) [G40.109] 02/29/2020 COVID-19 virus infection [U07.1] 03/11/2020 02/06/2021 Adjustment disorder with mixed anxiety and depr*10/14/2020 Encounter Status:Closed by LATA ROSE on 11/22/23 [facility] CNOVon 09-09-2023 CNOV Office Visit (WSTR ) CARLYESTRELLA ([id number]) 1 M Date Time Provider Department 09/09/23 8:45 AM JAIME TORRES [facility] During your visit today, we recorded the following information about you: Temperature Pulse Respiration Blood pressure 97.6 degrees 65/minute 16/minute 112/64 Weight 83.5 kg Jaime Torres APRN.CM 09/09/2023 9:16 AM Signed This note was created using NoteWriter. Subjective Estrella Ehsan Carroll is a 18 year old male. HPI For the last three days pt has had congestion and a sore throat. Throat seems more painful and dry today. Presents today worried about possible strep throat Review of Systems Constitutional: Negative for fatigue and fever. HENT: Positive for congestion and sore throat. Respiratory: Positive for cough. Objective BP 112/64 Pulse 65 Temp 36.4 ?C (97.6 ?F) (Tympanic) Resp 16 Wt 83.5 kg (184 lb 1.4 oz) SpO2 100% BMI 23.64 kg/m? Physical Exam Vitals and nursing note reviewed. Constitutional: General: He is not in acute distress. Appearance: Normal appearance. He is not ill-appearing. HENT: Head: Normocephalic. Mouth/Throat: Mouth: Mucous membranes are moist. Pharynx: No oropharyngeal exudate or posterior oropharyngeal erythema. Eyes: Conjunctiva/sclera: Conjunctivae normal. Cardiovascular: Rate and Rhythm: Normal rate and regular rhythm. Pulmonary: Effort: Pulmonary effort is normal. Breath sounds: Normal breath sounds. Musculoskeletal: General: Normal range of motion. Cervical back: Normal range of motion. Skin: General: Skin is warm and dry. Neurological: General: No focal deficit present. Mental Status: He is alert. Psychiatric: Mood and Affect: Mood normal. Behavior: Behavior normal. Assessment and Plan ASSESSMENT/PLAN: 1. Sore throat - ICD9: 462, ICD10: J02.9 - suspect viral - Rapid Strep negative in the office today - Discussed supportive care treatment with fluids, rest and analgesia. - The patient may also use OTC decongestants prn, OTC cough and cold meds as needed, and warm salt water gargles, throat lozenges and/or OTC throat spray as needed. - Contagious dz precautions discussed- including considered contagious until on antibiotics for 24 hours - The patient should follow up in one week if symptoms persist or worsen - Call back if drooling, increased temperature, symptoms of dehydration and/or still sick in one week -Patient will be swabbed for COVID to rule out any further causes of his symptoms - STREP A MOLECULAR (POC) - COVID NAAT, UPPER RESPIRATORY, ROUTINE Jaime Torres APRN.MERCHANDISER RETAIL REPRESENTATIVE Allergies As of Date: 09/09/2023 Noted Allergy Reaction CODEINE 07/14/2019 14 - Other: See Comments 16 - Unknown Comments: Aversion LEVETIRACETAM 04/15/2019 2 - Rash OXCARBAZEPINE 04/16/2019 14 - Other: See Comments 2 - Rash Comments: Neutropenia, hyponatremia SEASONAL ALLERGIES 05/27/2017 3 - Cough SHELLFISH CONTAINING PRODUCTS 08/11/2019 16 - Unknown Comments: Pre caution dad is allergic Date Reviewed: 09/09/2023 Reviewed by: Jaime Torres APRN.MERCHANDISER RETAIL REPRESENTATIVE - Fully Assessed Reason for Visit: Sore Throat [200] Cmt: ST and congestion x 3 days Primary Visit Diagnosis:Sore throat [J02.9] Order(s):STREP A MOLECULAR (POC) [[id number]] Order #: [id number]. #:[id number] COVID NAAT, UPPER RESPIRATORY, ROUTINE [SQCOVID] Order #: [id number]. #:[id number] Prescriptions as of 09/11/2023 - cloBAZam (ONFI) 10 mg tab tablet Take (2) tablets by mouth twice daily (= 40 mg/d) - lacosamide (VIMPAT) 200 mg Take 2 tablets by mouth every morning AND 3 tablets daily at bedtime. - midazolam (NAYZILAM) 5 mg/spray (0.1 mL) nasal spray Give 5 mg (0.1 ml) as a single dose in ONE nostril for seizure cluster or prolonged seizure lasting > 3 minutes. The same dose may be repeated in 10 minutes in the OTHER nostril if the seizure continues after the first dose. - mens gummy multivitamin (CENTRUM) chewable tablet Take 1 tablet by mouth once daily. Meds Comments as of 11/03/2013: Problem List As Of Date 09/09/2023 Noted Resolved Acute appendicitis [K35.80] 03/02/2014 11/24/2015 ADHD, predominantly inattentive type [F90.0] 11/30/2015 Localization-related (focal) (partial) idiopath*03/22/2019 02/29/2020 Partial epilepsy (HCC) [G40.109] 02/29/2020 COVID-19 virus infection [U07.1] 03/11/2020 02/06/2021 Adjustment disorder with mixed anxiety and depr*10/14/2020 Letter Text Encounter Status:Closed by JAIME TORRES on 09/09/23 Normal [facility] SARS-CoV-2 RNA Resp Ql LENORE+p immanuel 09-09-2023 SARS-CoV-2 (COVID-19) RNA LENORE+probe Ql (Resp) COVID 19 RESULT: Not detected The method used is RT-PCR or an equivalent NAAT method. Reference Range (the expected result in uninfected individuals): Not detected Normal [facility] Comment on above: Performed By: #### C JUNITO #### [facility] CLIA [id number] [address] [place] [address] STREP A MOLECULAR (POC)on Procedural Control Valid [facility] Strep A (POCT) Negative Negative [facility] Hanna 07-11-2023 CMN Telephone (NE22FT) ESTRELLA CARROLL ([id number]) 1 M Date Time Provider Department 07/11/23 MARLON CORREA [id number] During your visit today, we recorded the following information about you: Gita Haji 07/11/2023 8:32 AM Signed Medication Concern Person Calling Estrella Carroll Name of medication Vimpt and Onfi Concern with medication Patient took morning dose at 7:15 and vomited at 8:15. Should dose be repeated? Patient of Lata Camacho RN 07/11/2023 11:04 AM Signed Informed the patient no need to take another dose of ASM's. Per MICHELLE, he can take an extra 10 mg of CLB in the afternoon. Lata Rose RN Allergies As of Date: 07/11/2023 Noted Allergy Reaction CODEINE 07/14/2019 14 - Other: See Comments 16 - Unknown Comments: Aversion LEVETIRACETAM 04/15/2019 2 - Rash OXCARBAZEPINE 04/16/2019 14 - Other: See Comments 2 - Rash Comments: Neutropenia, hyponatremia SEASONAL ALLERGIES 05/27/2017 3 - Cough SHELLFISH CONTAINING PRODUCTS 08/11/2019 16 - Unknown Comments: Pre caution dad is allergic Date Reviewed: 04/27/2023 Reviewed by: Erendira Robles MA - Fully Assessed Reason for Visit: Medication Problem [65] Cmt: Should AM dose be repeated as patient vomited within 1 hour? Prescriptions as of 07/11/2023 - lacosamide (VIMPAT) 200 mg Take 2 tablets by mouth every morning AND 3 tablets daily at bedtime. - cloBAZam (ONFI) 10 mg tab tablet Take (2) tablets by mouth twice daily (= 40 mg/d) - midazolam (NAYZILAM) 5 mg/spray (0.1 mL) nasal spray Give 5 mg (0.1 ml) as a single dose in ONE nostril for seizure cluster or prolonged seizure lasting > 3 minutes. The same dose may be repeated in 10 minutes in the OTHER nostril if the seizure continues after the first dose. - mens gummy multivitamin (CENTRUM) chewable tablet Take 1 tablet by mouth once daily. Meds Comments as of 11/03/2013: Problem List As Of Date 07/11/2023 Noted Resolved Acute appendicitis [K35.80] 03/02/2014 11/24/2015 ADHD, predominantly inattentive type [F90.0] 11/30/2015 Localization-related (focal) (partial) idiopath*03/22/2019 02/29/2020 Partial epilepsy (HCC) [G40.109] 02/29/2020 COVID-19 virus infection [U07.1] 03/11/2020 02/06/2021 Adjustment disorder with mixed anxiety and depr*10/14/2020 Encounter Status:Closed by LATA ROSE on 07/11/23 Normal [facility] STREP A MOLECULAR (POC)on Procedural Control Valid [facility] Strep A (POCT) Negative Negative [facility] CNOVon 04-01-2023 CNOV Office Visit (NEEPBA ) ESTRELLA CARROLL ([id number]) 1 M Date Time Provider Department 04/01/23 10:00 AM MARLON CORREA During your visit today, we recorded the following information about you: Pulse Respiration Blood pressure Weight 60/minute 16/minute 143/75 86.2 kg Height 1.88 m Marlon Correa MD 04/01/2023 4:23 PM Signed [facility] Patient Name: Estrella Carroll Date of : 2005 Referring Provider Iva Car MD Referring Team, Pediatrics [phone] ESTABLISHED EPILEPSY CLINIC NOTE 04/01/2023 10:00 AM Reason for Visit: New Patient (Transfer of care) and Epilepsy Clinical Summary: Mr. Carroll is a 18 year old right-handed male seen in [facility]. At today's visit, the patient is accompanied by: Both parents Classification Summary HISTORY OF PRESENT ILLNESS Handedness: right-handed Age of onset: Seizure History and Evolution EPILEPSY CLASSIFICATION: Focal epilepsy (left hemisphere) SEIZURES: Right leg somatosensory -> Right versive -> Generalized tonic clonic seizures MRI: Normal ([facility]) ETIOLOGY: Unknown EEG: Left temporo-parietal sharp waves ([facility] - by report - not confirmed upon review of selected samples) ASSOCIATED CONDITIONS: Anxiety, ADHD Weight by report: 89 kg Blaise had onset of seizures at 14 years of age. On 03/20/2019, Blaise had onset of seizures with a cluster of 3 seizures in about 12 hours. The first involved confusion and garbled speech, and the next 2 evolved to generalized tonic clonic convulsion. In retrospect, about a week earlier, he had a missed seizure in his bedroom - he felt the paranoia that he later realized was his aura, walked to close the door, blacked out, and woke up in his bed with a black eye. On 03/20/2019, Blaise was admitted to [facility] where EEG was interpreted to show left temporo-parietal sharp waves {not appreciated on the samples sent for review] and MRI was normal. He was started on oxcarbazepine. Subsequent lab work showed hyponatremia and neutropenia. In late 03/2019, a transition to levetiracetam was initiated. Six days after starting levetiracetam, and about 1 month after starting oxcarbazepine, he developed a whole body rash. Both drugs were stopped, and he was started on clobazam. Since then, seizures have remained a concern. Features included an aura of paranoia and confusion, garbled speech, and tingling in the right foot which spread to the right leg and the then right side of the head for about 45 seconds. He usually signaled the seizure vocally, saying Mom or Dad or grunting. He then lay down on the floor on his side in a position, and as he blacked out his head jerked to the right with evolution to whole body stiffening and tremor with extension of the arms, fisting of the hands, grunting, labored breathing, and foaming at the mouth, without tongue bite or urine loss (video reviewed). Convulsions lasted 60 to 80 seconds, followed by headache and sleep. After medication was started, the tingling began on the right side of the head, without origin in the right foot and leg. In addition, he has also had a few seizures with the typical aura of paranoia and confusion, with garbled speech and no further evolution. All but one of his seizures have occurred while awake. Sleep deprivation is a trigger. Since onset of seizures in 03/2019, Felix has had the following events. - 04/2019 - 1 seizure on clobazam 20 mg/d - 04/2019 to 01/2020 - episodes of brain fog for a few seconds or minutes, with no outward sign, recurring once every other day - exact nature unclear [plus a panic attack in 07/2019, with normal bedside EEG] - 11/2019 to 02/2020 - 1 to 3 seizure per month, all but one with evolution to generalized tonic clonic convulsion, on brivaracetam and clobazam. Most recent seizure (02/17/2020) occurred on brivaracetam 200 mg/d and clobazam 40 mg/d. Blaise had no seizures while on oxcarbazepine for about a month, but with neutropenia, hyponatremia, and rash (6 days after addition of levetiracetam). He was on clobazam alone until 08/2020 then breviracetam alone for about 6 weeks, and then clobazam was added back in 11/2019 and increased to 40 mg/d by 02/2020. Throughout this period, seizures persisted every 2 to 3 weeks. After a seizure on 02/17/2020, Blaise was started on lacosamide 400 mg/d (with clobazam and brivaracetam), with cessation of seizures. SEIZURE OVERVIEW Lacosamide was started after a right sensorimotor -> generalized tonic clonic seizure on 02/17/2020. He has had no further seizures of this type since then. Over time Blaise reported brain fog episodes which have recurred over time since at least early 2019. I just kind of zone out and can't understand words that people are saying for ab (more content not included)... Normal [facility] STREP A MOLECULAR (POC)on Procedural Control Valid [facility] Strep A (POCT) Negative Negative [facility] XR Clavicle - left 2 Viewson 06-01-2022 IMPRESSION: There is a surgical plate with multiple surgical screws along the left clavicle. No new fracture seen. The left acromioclavicular joint space is maintained. No obvious soft tissue swelling. Stunt Driver: [facility] Transcribe Date/Time: Jun 01 2022 8:05A Dictated by : IVAN PORTER MD This examination was interpreted and the report reviewed and electronically signed by: IVAN PORTER MD on Jun 01 2022 8:08AM [facility] DIVISION OF RADIOLOGY * * *Final Report* * * DATE OF EXAM: May 31 2022 3:09PM WOX [id number] - XR CLAVICLE 2V LT / PROCEDURE REASON: Pain of left clavicle * * * * Physician Interpretation * * * * EXAM TITLE: XR CLAVICLE 2V LT EXAM DATE/TIME: 05/31/2022 3:09 PM COMPARISON: None. CLINICAL INDICATION/HISTORY: Pain in the left clavicle. TECHNIQUE: AP and axial views of the left clavicle are presented. FINDINGS AND DIVISION OF RADIOLOGY Provider, [facility] - 06/01/2022 * * *Final Report* * * DATE OF EXAM: May 31 2022 3:09PM WOX [id number] - XR CLAVICLE 2V LT / PROCEDURE REASON: Pain of left clavicle * * * * Physician Interpretation * * * * EXAM TITLE: XR CLAVICLE 2V LT EXAM DATE/TIME: 05/31/2022 3:09 PM COMPARISON: None. CLINICAL INDICATION/HISTORY: Pain in the left clavicle. TECHNIQUE: AP and axial views of the left clavicle are presented. FINDINGS AND IMPRESSION IMPRESSION: There is a surgical plate with multiple surgical screws along the left clavicle. No new fracture seen. The left acromioclavicular joint space is maintained. No obvious soft tissue swelling. Stunt Driver: YESI Transcribe Date/Time: Jun 01 2022 8:05A Dictated by : IVAN PORTER MD This examination was interpreted and the report reviewed and electronically signed by: IVAN PORTER MD on Jun 01 2022 8:08AM EST [facility] XR Clavicle - left 2 ViewsOr dered By: Ccf Provider on 06-01-2022 [facility] XR Clavicle - left 2 Viewson 05-31-2022 Radiology Study observation (narrative) [facility] STREP A MOLECULAR (POC)on Procedural Control Valid [facility] Strep A (POCT) Negative Negative [facility] XR Femur - left AP and Later gesron 07-13-2020 IMPRESSION: Normal 2 views of the left femur Stunt Driver: [facility] Transcribe Date/Time: Jul 13 2020 1:11P Dictated by : EREDNIRA PATHAK MD This examination was interpreted and the report reviewed and electronically signed by: ERENDIRA PATHAK MD on Jul 13 2020 1:12PM EST DIVISION OF RADIOLOGY * * *Final Report* * * DATE OF EXAM: Jul 13 2020 1:09PM WOX [id number] - XR FEMUR 2V AP/LAT LT / PROCEDURE REASON: Left thigh pain * * * * Physician Interpretation * * * * TECHNIQUE: XR FEMUR 2V AP/LAT LT - EXAM DATE: 07/13/2020 1:09 PM CLINICAL HISTORY: Left thigh pain COMPARISON: Left knee dated 04/06/2019 FINDINGS: AP and lateral views of the femur show no fracture or bone destruction. Hip joint spaces well-maintained. There is no suprapatellar joint effusion. DIVISION OF RADIOLOGY Provider, Delilah Liu - 07/13/2020 * * *Final Report* * * DATE OF EXAM: Jul 13 2020 1:09PM WOX [id number] - XR FEMUR 2V AP/LAT LT / PROCEDURE REASON: Left thigh pain * * * * Physician Interpretation * * * * TECHNIQUE: XR FEMUR 2V AP/LAT LT - EXAM DATE: 07/13/2020 1:09 PM CLINICAL HISTORY: Left thigh pain COMPARISON: Left knee dated 04/06/2019 FINDINGS: AP and lateral views of the femur show no fracture or bone destruction. Hip joint spaces well-maintained. There is no suprapatellar joint effusion. IMPRESSION IMPRESSION: Normal 2 views of the left femur Stunt Driver: [facility] Transcribe Date/Time: Jul 13 2020 1:11P Dictated by : ERENDIRA PATHAK MD This examination was interpreted and the report reviewed and electronically signed by: ERENDIRA PATHAK MD on Jul 13 2020 1:12PM EST [facility] Radiology Study observation (narrative) [facility] XR Femur - left AP and Later alOrdered By: Cc Provider on 07-13-2020 [facility] Progress Noteon 05-30-2020 Patient Care Nursing Assistant Authentication Interface Message Text This is a telemedicine video visit requested by the patient/guardian that was performed with the originating site at home and the distant site at office. This visit occurred during the Coronavirus (COVID-19) Public Health Emergency. Reason for Consult/Chief Concern: Seizures. Referring Provider: Elle Thomason Primary Care Doctor: Iva Car MD History of Present Illness (Location, Quality, Severity, Duration, Timing, Context. Modifying Factors, Associated Signs & Symptoms): Estrella Carroll is a 15 y.o. 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 He was last seen in August and a trio-based epilepsy gene panel was recommended. Due to insurance issues and a maternal sample failure in the lab, Estrella's results are only just recently available. Since he was last seen there have not been any major changes to his medical history. He has transferred care to the [facility]. The last three months he has been seizure-free and free of brain fog he was previously experiencing. Past Medical History: History: Uncomplicated . Born full term 8 lbs 1 oz, with no complications at delivery or period. 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 Social History: Lives with parents, two older sisters and one older brother. Family History: Sister, Leslee with anxiety/panic attacks, hx eating disorder, migraines, ADHD, syncope isolated/1x no known etiology SisterSybil, anxiety, supraventricular tachycardia (treated with beta lalo - [facility]. [facility]) Brother, Rudolph, with migraines and asthma (well-controlled), anxiety. Mom - anxiety, hx migraines in teens and early 20's Maternal aunts (2) both with anxiety Maternal grandmother with anxiety Maternal aunt - stillborn with cord accident Maternal aunt shortly after of congenital heart defect Maternal grandfather's aunt with seizures Mother's paternal grandfather with heart issues starting in his 30's; was a smoker and also had occupational exposure to road tar Father - healthy Paternal grandmother's father - seizures Paternal uncle - at No additional reported family hx of seizures, syncope, sudden , SIDS, or defects. Parents are of descent and non-consanguineous. Review of Systems Constitutional: Negative Vision: Negative ENT: Negative Head and Neck: Negative Endocrine: Negative Hematology/Lymphatic: Negative Respiratory: Negative Cardiovascular: Negative Gastrointestinal: Negative : Negative Skin: Negative Musculoskeletal: Negative Neuro: Positive for seizures Psychiatric: Positive for anxiety and history of ADHD Allergy/Immun: Negative Physical Examination Constitutional: General Appearance: Well nourished; well developed; no acute distress Mental Status: Alert, cooperative and interactive Speech: Normal Head: Normocephalic; nondysmorphic Eyes: Normally formed and positioned; straight palpebral fissures Orbits/Palpebrae: Normal eyelashes and eyebrows Nose: Normally formed Ears: Normally formed and positioned Mouth: Normally formed Genetic Testing: Prior Pertinent Imaging Results: MRI 03/21/2019: IMPRESSION: Unremarkable study Other Prior Pertinent Evaluations: EEG 07/14/2019: INTERPRETATION: During 30 hours and 46 minutes of continuous digital EEG/Video monitoring with scalp electrodes, the EEG was within normal limits. No electroclinical or electrographic seizures were seen. No events of concern were highlighted. There were no definitive epileptiform discharges observed. EEG 03/21/2019: INTERPRETATION: During 19 hours 44 minutes of continuous digital EEG/Video monitoring with scalp electrodes, the EEG was abnormal due to the presence of focal spikes and sharps from left temporal/parietal region. Impression: Estrella Carroll is a 15 y.o. boy with localized-related epilepsy whose genetic testing has been non-diagnostic. 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 A variant of uncertain significance is a change in the normal sequence of a gene for which the clinical significance and/or association with disease is unclear. Truly pathogenic de jeronimo mutations in SCN3A result in early infantile epileptic encephalopathy or childhood-onset epilepsy that is difficult to treat and often associated with severe developmental delay/intellectual disability. Variants in SCN3A have also been reporte (more content not included)... Normal [facility] CNNURSEon 05-14-2020 [facility] Visit (LIZET) ESTRELLA CARROLL ([id number]) 1 M Date Time Provider Department 05/14/20 BRIE SONG JR During your visit today, we recorded the following information about you: Allergies As of Date: 05/14/2020 Noted Allergy Reaction LEVETIRACETAM 04/15/2019 2 - Rash OXCARBAZEPINE 04/16/2019 14 - Other: See Comments 2 - Rash Comments: Neutropenia, hyponatremia SEASONAL ALLERGIES 05/27/2017 3 - Cough Date Reviewed: 03/22/2020 Reviewed by: Alethea Miller Ma - Fully Assessed Order(s):[employer] SARS-COV-2 VACCINE 2D DOSE APPT [[id number]] Order #: [id number] Prescriptions as of 05/14/2020 Sig: LACOSAMIDE 200 MG TABLET Take one tablet twice a day LACOSAMIDE 50 MG TABLET 1 tab twice daily (2 pill siz* BRIVARACETAM 100 MG TABLET Take 1 tablet by mouth twice * CLOBAZAM 10 MG TABLET 2 tabs bid = 40 mg/d NAYZILAM 5 MG/SPRAY (0.1 ML) * Give 5 mg (0.1 ml) as a singl* Problem List As Of Date 05/14/2020 Noted Resolved Acute appendicitis [K35.80] 03/02/2014 11/24/2015 ADHD, predominantly inattentive type [F90.0] 11/30/2015 Localization-related (focal) (partial) idiopath*03/22/2019 02/29/2020 Partial epilepsy with intractable epilepsy (HCC*02/29/2020 COVID-19 virus infection [U07.1] 03/11/2020 Encounter Status:Open Normal [facility] Discharge Summaryon 07-15-19 Patient Care Nursing Assistant Authentication Interface Message Text Discharge/Transfer Summary Name: Estrella Carroll MR#: [id number] : 2005 Room #: 6213/01 Age/Sex: 14 y.o. male Admit Date: 07/14/2019 Admitting: Chris Clemens MD Discharge Date: 07/15/2019 Discharged from: [facility] Attending: Matheus Tirado M.D. Final Diagnosis: Pre Focal Seizure Aura Anxiety Significant Findings (Problem List): Active Hospital Problems No active problems to display. Resolved Hospital Problems Diagnosis Date Resolved Seizure-like activity 07/15/2019 Reason for Hospitalization: Altered mental status Discharge Condition: Good Hospital Course (Care, treatment and services provided): Brief Narrative Hospital Course: Estrella is a 14 y.o. 4 m.o. male with known focal epilepsy and ADHD-predominantly inattentive type who presents with altered mental status with aura concerning for possible seizure. No events were captured on video EEG. No evidence of electrographic seizure was observed on EEG. He had an episode of brain fog last night that did not have any electrographic correlate. Unclear if presentation was due to seizure as this is not patient's typical seizure and rescue seizure medication seemed to worsen symptoms. UDS obtained and was positive for benzodiazepines which correlates with rescue midazolam use. PNES vs anxiety attack as potential cause of his symptoms is higher on the differential. No changes to anticonvulsant regimen were made. Discussed reestablishing care with his counselor. As discussed in H&P, that he was able to talk himself down from one of the spells thought to be an aura without progression to clinical seizure raises suspicion for non-epileptic events. Patient remained neurologically and hemodynamically stable. Patient was monitored on cEEG which showed no evidence of epileptiform activity. Discharged with follow-up with neurology on August 10. General: Alert and oriented. No acute distress. Laying comfortably in bed. HEEN: Normocephalic atraumatic. Respiratory: Breath sounds clear and equal to auscultation bilaterally.Good aeration throughout lung dubon. No rales, rhonchi, crackles, or wheezes. Cardiac: Regular rate and rhythm. Normal S1 and S2. No murmur, rubs or gallops. Peripheral pulses equal+2 bilaterally. Abdomen: Soft, nontender, with no organomegaly. No distention. No masses palpable. Bowel sounds present Extremities: Symmetric tone and moving all extremities. No clubbing, cyanosis, or edema Neuro: Fully intact. No acute deficits identified. normal strength 5/5 in upper and lower extremities. Performed by Raymond Arita MD Treatments and procedures with outcomes: No significant invasive procedures Immunizations (administered this admission): none Significant Imaging Results: None Pending Test Results and Tests to Obtain as Outpatient: In-Process Results No orders found from 06/16/2019 to 07/16/2019. Preliminary Results No orders found from 06/16/2019 to 07/16/2019. Disposition: He was discharged to home. Discharge Medications: He did not have significant changes to their home medications (see below): Medication List CONTINUE taking these medications which HAVE NOT changed at this visit Morning Afternoon Evening Bedtime As Needed clobazam 10 MG tablet Take 15 mg by mouth 2 times daily Commonly known as: ONFI [ ] [ ] [ ] [ ] [ ] Discharge Instructions: Instructions/Follow Up Future Labs/Procedures Expected by Expires Follow Up with As directed Comments: Follow up with Dr. Thomason on August 10 as scheduled. [facility] [address] [place], [place] [address] [place] State Law: Child Safety Seat Instructions As directed Comments: It is the [facility] Law that every child under 8 years old must ride in an appropriate child safety seat unless the child is 4'9 or taller. Every child from 8-15 years old who is not secured in a child safety seat must be secured in the vehicle's seat belt. [facility] advises that all motor vehicle passengers be restrained. Patient Instructions As directed Comments: Estrella may go home! He was admitted to assess his auras with continuous EEG to assess for seizure activity. There was no evidence of seizures during hospitalization. We did not make any changes to Estrella's medications. Please continue to monitor for auras and any seizure-like activity. Please follow up with neurologist as instructed on August 10. If Estrella has any change in typical seizure pattern, please contact your neurologist or present to the emergency department. A refill was sent for his intranasal midazolam. Please use this for seizures lasting more than 5 minutes. Discharge Orders Future Labs/Procedures Expected by Expires Activity as tolerated As directed Regular diet for age As directed Signed: Paula Arellano MD 07/15/19 3:34 PM Attending Physician Attestation I reviewed the history and performed a pertinent independent history and physical examination. I agree with the findings described in the note above except for changes as noted by or addition. Management of the patient has been carried out in accordance with my plans. Plan discussed with parents, patient and questions addressed. Counseling and/or coordination of care (face to face) was 45 minutes, which is more than 50% of the total time of 60 minutes spent on this encounter. Matheus Tirado MD, PhD Neurology 07/15/2019 Normal [facility] Drugs of Abuse, Urineon Amphetamines Ql (U) Negative Normal Negative [facility] Comment on above: Result Comment: Thre shold = 1000 ng/mL Performed By: #### D RG #### [facility] [address] [place] [address] Barbiturates Negative Normal Negative [facility] Comment on above: Result Comment: Thre shold = 200 ng/mL Performed By: #### D RG #### [facility] [place] [address] [place] [address] Benzodiazepines Ql (U) Positive Abnormal Negative [facility] Comment on above: Result Comment: Thre shold = 200 ng/mL Performed By: #### D RG #### [facility] [place] [address] [facility] [place] [address] Cocaine Ql (U) Negative Normal Negative [facility] Comment on above: Result Comment: Thre shold = 300 ng/mL Performed By: #### D RG #### [facility] [place] [address] [facility] [place] [address] Methadone Ql (U) Negative Normal Negative [facility] Comment on above: Result Comment: Thre shold = 300 ng/mL Performed By: #### D RG #### [facility] [address] [place] [address] Opiates Ql (U) Negative Normal Negative [facility] Comment on above: Result Comment: Thre shold = 300 ng/mL Performed By: #### D RG #### [facility] [address] [place] [address] Oxycodone Negative Normal Negative [facility] Comment on above: Result Comment: Thre shold = 300 ng/mL Performed By: #### D RG #### [facility] [address] [place] [address] PCP-Phencyclidine Negative Normal Negative [facility] Comment on above: Result Comment: Thre shold = 25 ng/mL Performed By: #### D RG #### [facility] [address] [place] [address] ANITA Test Comment ----- Normal [facility] Comment on above: Result Comment: Note: This testing is intended for medical management and treatment only. Analysis performed using non-forensic procedures. Performed By: #### D RG #### [address] [address] [employer] 07-14-2019 Patient Care Nursing Assistant Authentication Interface Message Text MEDICAL ADMISSION HISTORY AND PHYSICAL Date of Service: 07/14/2019 Attending Provider: Chris Clemens MD Primary Care Provider: Iva Car MD Chief Complaint: Altered mental status Reason for Hospitalization: Acute or unresolved changes in physiologic status History of Present illness: Estrella is a 14 y.o. male with a past medical history of focal epilepsy and ADHD-predominantly inattentive type who presents with altered mental status. He is accompanied by his mother. The history is provided by the patient and mother Mom reports that patient has had episodes of altered mental status 3 times in the last 10 days. Mom recounts first episode as occurring on 07/03 when patient reportedly had aura he described as brain fog that he felt spreading through his body with altered sensation. Mom reports patient thought he was going to seize and then took his home rescue medication (5 mg Midazolam) which seemed to resolve symptoms. Mom reports they spoke with Dr. Malik after this incident who recommended increasing Onfi BID from 10 mg in AM to 15 mg in both AM and PM. Mom reports second episode occurred on 07/10 around 7:30 PM when patient developed similar aura that resolved without needing rescue medication. Most recent episode was 07/12 on DOA which patient states was way worse than initial episode. Patient was at girlfriend's house from 4PM-10PM. Around 10:45 PM, patient called Mom and said he was in his bathroom with similar symptoms from before including aura, as well as feeling like his heart was beating fast and he felt like he was going to . Both patient and Mom state he did not have a seizure. Mom gave him his rescue medication Midazolam and he then became verbally unresponsive for the next 30 minutes. At this time, Mom called 911 where he was then assessed by EMS who did not report any change in breathing. Patient transferred to [place] [facility]. [place] [facility]: Vitals stable. CBC and BMP normal. Patient given IVF bolus x1 and put on CRM. Patient reported he was feeling back to his baseline, but Mom was concerned as she thought patient did not seem to be at his baseline and requested patient be transferred to [facility] for further evaluation. Patient was discussed with Dr. Clemens with Neurology who recommended continuous EEG. On the floor, Mom reports patient seems to be returning to neurological baseline, but states it is difficult to assess as patient is so tired and it is the middle of the night. Patient denies any loss of consciousness. He reports while this episode was occurring, he was aware of things going on around him, but he was unable to speak. Mom reports his baseline seizures consist of aura, head tick, stiffening of extremities that lasts for 30-40 seconds for which it takes 15 minutes to return to baseline. Last reported seizure was April 25. H: Feels safe at home, lives with parents, 3 siblings. E: Goes to school, will be in 11th grade E: Eats well a well balanced diet A: Plays sports, hangs out with friends D: Denies illicit drugs, smoking or chewing tobaco and alcohol use. Mom reports patient was vaping back in February but addressed patient. S: Feels safe at home, with friends, at school, not in an abusive relationship. S: Admits to sexual activity with girlfriend. Reports not using a condom. S: Denies suicidal/homicidal ideations, feells well and not depressed Confidentiality discussed with teen: yes. Confidentiality discussed with Mother Review of Systems: Review of Systems Constitutional: Positive for activity change. Negative for fever. HENT: Positive for sneezing. Negative for congestion. Eyes: Negative for visual disturbance. Respiratory: Negative for cough. Cardiovascular: Positive for palpitations. Gastrointestinal: Negative for blood in stool, diarrhea and vomiting. Genitourinary: Negative for decreased urine volume. Skin: Negative for rash. Allergic/Immunologic: Positive for environmental allergies. Negative for food allergies. Neurological: Positive for speech difficulty. Negative for seizures, facial asymmetry and headaches. Psychiatric/Behaviora l: Negative for sleep disturbance and suicidal ideas. Medical/Surgical History: Past Medical History: Diagnosis Date ADHD (attention deficit hyperactivity disorder) Seizures Past Surgical History: Procedure Laterality Date APPENDECTOMY ORTHOPEDIC SURGERY History: Noncontributory No complications No history on file. Development History: Milestones: All met as expected Diet History: Age appropriate / normal for age Drug/Food Allergies: Allergies Allergen Reactions Codeine Other (See Comments) Aversion Keppra [Levetiracetam] Rash Trileptal [Oxcarbazepine] Other (See Comments) Neutropenia, hyponatremia Immunizations: There is no immunization history on file for this patient. Medications: Medications Prior to Admission Medication Sig Dispense Refill Last Dose clobazam (ONFI) 10 MG tablet Take 15 mg by mouth 2 times daily 07/13/2019 at Unknown time Psych/Social History: Estrella lives with parents and 3 siblings Special Needs: None Preferred Language: Irish Travel: No Pets: Yes: 2 cats, 1 hampster Alcohol/Drug Use or Exposure: No Smoke Exposure: None History reviewed. No pertinent family history. Vital Signs: Vitals: 07/14/19 0305 BP: 109/48 Pulse: 60 Resp: 16 Temp: 36.7 C (98.1 F) Physical Exam: General: Alert and oriented. No acute distress. Laying comfortably in bed. HEEN: Normocephalic atraumatic. Eyes: EOMI. Pupils dilated 4 mm bilaterally, equally reactive to light. Sclera and conjunctiva clear bilaterally. Ears: No discharge Nose: No discharge. Moist nasal mucosa Throat: Moist oral mucosa without erythema or exudates. Uvula midline Neck: Supple and nontender. No lymphadenopathy Respiratory: Breath sounds clear and equal to auscultation bilaterally.Good aeration throughout lung dubon. No rales, rhonchi, crackles, or wheezes. Cardiac: Regular rate and rhythm. Normal S1 and S2. No murmur, rubs or gallops. Peripheral pulses equal+2 bilaterally. Abdomen: Soft, nontender, with no organomegaly. No distention. No masses palpable. Bowel sounds present Extremities: Symmetric tone and moving all extremities. No clubbing, cyanosis, or edema Skin: Warm dry and intact without rash or erythema Neuro: Fully intact. No acute deficits identified. normal strength 5/5 in upper and lower extremities. Agree with exam. Patient sleepy but cooperative, alert, and oriented and answers questions appropriately. Bilateral pupils dilated ~4mm and reactive to light. Diagnostic Studies Reviewed: No results found for this or any previous visit. No orders to display Labs from OSH CBC: WBC 5/7, Hgb 13.2, Hct 38.2, Plt 284 Differential: 0.2 %Band, 35.9 %Lymphs,10.9 %Monocytes BMP: Na 144, K 3.7, Cl 107, HCO3 28.0, BUN 14, Cr 1.04, Glu 101, Ca 8.8 Assessment: Estrella is a 14 y.o. 4 m.o. male with known focal epilepsy and ADHD-predominantly inattentive type who presents with altered mental status with aura concerning for possible seizure. Unclear if presentation due to seizure as this is not patient's typical seizure and rescue seizure medication seemed to worsen symptoms. Cannot rule out illicit substances as etiology for AMS, will therefore obtain urine DOA to evaluate further. Cannot rule out PNES vs anxiety attack as potential cause. Patient currently neurologically and hemodynamically stable, but requires admission for cEEG monitoring for further evaluation of his symptoms. 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 -Continue home AEDS: Onfi 15 mg BID (0700, 1900) -Regular diet -Drugs of abuse to evaluate for additional cause of altered mental status -Seizure contingency: 1mg IV Ativan lasting >5 minutes Education: Discussion with parent/patient (diagnosis, plan) Discharge Planning: Diagnosis unclear at this time; will develop discharge plan as diagnosis becomes clear Sera Silverio DO Pager: [phone] PGY-1 5:17 AM 07/14/2019 Senior Resident Addendum: I personally performed a history and physical examination of this patient, and discussed the patient's management with the actuarial internship and attending. I reviewed the actuarial internship's note, and agree with the essential elements of the history, physical exam, assessement, and plan. Exceptions or additions are or noted in italics. Theodora Cosby DO 07/14/2019 5:38 AM Attending Physician Attestation I reviewed the history and performed a pertinent independent history and physical examination. I agree with the findings described in the note above except for changes as noted by or addition. Management of the patient has been carried out in accordance with my plans. Plan discussed with family and questions addressed. Additions to History, Exam, Assessment, and Plan: Further clarification of recent events. He has had three events that felt like his typical aura that occur prior to his typical clinical seizure. For two of these events, he administered nasal versed. For other event, he was able to talk himself down from having the seizure and the Aura resolved without progression to seizure. This event that lead to his admission involved more altered mental status than what the family expected after receiving nasal versed, as he tolerated his previous dose of nasal versed without issue. There is concern that these events are non-epileptic in nature, but I would recommend cEEG for another night in an attempt to capture the event. No changes to anticonvulsant regiment at this time. Strongly recommended reintegrating with the counseling services he was involved with prior to this, as both he and his family are concerned that his anxiety is potentially a problem. There is a strong family history of anxiety and we did discuss how anxiety can cause similar episodes that may appear like seizures. Counseling and/or coordination of care (face to face) was 35 minutes, which is more than 50% of the total time of 50 minutes spent on this encounter. Matheus Tirado MD, PhD Neurology 07/14/2019 Normal [facility] XR FLUORO 1-2 HRS TECH TIMEo n 05-15-2019 XR FLUORO 1-2 HRS TECH TIME ORIGINAL Images acquired, not reported on this accession number. Normal [facility] ([place]) Vital Signs Date Time Vital Sign Value Performing Clinician Facility 02-24-2024 13:29-0500 Body mass index (BMI) [Ratio] 24.14 kg/m2 Brigida Ruiz APRN.CNP Work Phone: [facility] 02-24-2024 13:29-0500 Body temperature 98.4 [degF] Brigida Joseph EDUCATION AND OUTREACH COORDINATOR.MERCHANDISER RETAIL REPRESENTATIVE Work Phone: [facility] 02-24-2024 13:29-0500 Body weight 85.3 kg Brigida Joseph EDUCATION AND OUTREACH COORDINATOR.MERCHANDISER RETAIL REPRESENTATIVE Work Phone: [facility] 02-24-2024 13:29-0500 Diastolic blood pressure 70 mm[Hg] Brigida Joseph EDUCATION AND OUTREACH COORDINATOR.MERCHANDISER RETAIL REPRESENTATIVE Work Phone: [facility] 02-24-2024 13:29-0500 Heart rate 55 /min Brigida Joseph EDUCATION AND OUTREACH COORDINATOR.MERCHANDISER RETAIL REPRESENTATIVE Work Phone: [facility] 02-24-2024 13:29-0500 Respiratory rate 17 /min Brigida Joseph EDUCATION AND OUTREACH COORDINATOR.MERCHANDISER RETAIL REPRESENTATIVE Work Phone: [facility] 02-24-2024 13:29-0500 SaO2% (BldA) [Mass fraction] 100 % Brigida Ruiz EDUCATION AND OUTREACH COORDINATOR.MERCHANDISER RETAIL REPRESENTATIVE Work Phone: [facility] 02-24-2024 13:29-0500 Systolic blood pressure 130 mm[Hg] Brigida Joseph EDUCATION AND OUTREACH COORDINATOR.MERCHANDISER RETAIL REPRESENTATIVE Work Phone: [facility] 02-11-2024 13:30-0500 Body mass index (BMI) [Ratio] 24.54 kg/m2 Ca Winn-Luis EDUCATION AND OUTREACH COORDINATOR.MERCHANDISER RETAIL REPRESENTATIVE Work Phone: [facility] 02-11-2024 13:30-0500 Body temperature 98.8 [degF] Ca Buttler-Luis EDUCATION AND OUTREACH COORDINATOR.MERCHANDISER RETAIL REPRESENTATIVE Work Phone: [facility] 02-11-2024 13:30-0500 Body weight 86.7 kg Ca Buttler-Luis EDUCATION AND OUTREACH COORDINATOR.MERCHANDISER RETAIL REPRESENTATIVE Work Phone: [facility] 02-11-2024 13:30-0500 Diastolic blood pressure 78 mm[Hg] Ca Praisler-Wood EDUCATION AND OUTREACH COORDINATOR.MERCHANDISER RETAIL REPRESENTATIVE Work Phone: [facility] 02-11-2024 13:30-0500 Heart rate 76 /min Ca Pracelestinoler-Wood EDUCATION AND OUTREACH COORDINATOR.MERCHANDISER RETAIL REPRESENTATIVE Work Phone: [facility] 02-11-2024 13:30-0500 Respiratory rate 16 /min Ca Praisler-Wood EDUCATION AND OUTREACH COORDINATOR.MERCHANDISER RETAIL REPRESENTATIVE Work Phone: [facility] 02-11-2024 13:30-0500 SaO2% (BldA) [Mass fraction] 100 % Ca Praisler-Wood EDUCATION AND OUTREACH COORDINATOR.MERCHANDISER RETAIL REPRESENTATIVE Work Phone: [facility] 02-11-2024 13:30-0500 Systolic blood pressure 132 mm[Hg] Ca Pracelestinoler-Wood EDUCATION AND OUTREACH COORDINATOR.MERCHANDISER RETAIL REPRESENTATIVE Work Phone: [facility] 12-12-2023 10:40-0400 Body mass index (BMI) [Ratio] 23.55 kg/m2 Iva Car MD Work Phone: [facility] 12-12-2023 10:40-0400 Body temperature 97.81 [degF] Iva Car MD Work Phone: [facility] 12-12-2023 10:40-0400 Body weight 83.19 kg Iva Car MD Work Phone: [facility] 12-12-2023 10:40-0400 Heart rate 60 /min Iva Car MD Work Phone: [facility] 12-12-2023 10:40-0400 Respiratory rate 14 /min Iva Car MD Work Phone: [facility] 11-27-2023 10:24-0400 Body height 188 cm Marlon Correa MD Work Phone: [facility] 11-27-2023 10:24-0400 Body mass index (BMI) [Ratio] 23.11 kg/m2 Marlon Correa MD Work Phone: [facility] 11-27-2023 10:24-0400 Body weight 81.65 kg Marlon Correa MD Work Phone: [facility] 11-27-2023 10:24-0400 Diastolic blood pressure 71 mm[Hg] Marlon Correa MD Work Phone: [facility] 11-27-2023 10:24-0400 Heart rate 47 /min Marlon Correa MD Work Phone: [facility] 11-27-2023 10:24-0400 Respiratory rate 16 /min Marlon Correa MD Work Phone: [facility] 11-27-2023 10:24-0400 Systolic blood pressure 126 mm[Hg] Marlon Correa MD Work Phone: [facility] 09-09-2023 08:53-0400 Body mass index (BMI) [Ratio] 23.64 kg/m2 Jaime Moomaw EDUCATION AND OUTREACH COORDINATOR.MERCHANDISER RETAIL REPRESENTATIVE Work Phone: [facility] 09-09-2023 08:53-0400 Body temperature 97.59 [degF] Jaime Moomaw EDUCATION AND OUTREACH COORDINATOR.MERCHANDISER RETAIL REPRESENTATIVE Work Phone: [facility] 09-09-2023 08:53-0400 Body weight 83.5 kg Jaime Moomaw EDUCATION AND OUTREACH COORDINATOR.MERCHANDISER RETAIL REPRESENTATIVE Work Phone: [facility] 09-09-2023 08:53-0400 Diastolic blood pressure 64 mm[Hg] Jaime Moomaw EDUCATION AND OUTREACH COORDINATOR.MERCHANDISER RETAIL REPRESENTATIVE Work Phone: [facility] 09-09-2023 08:53-0400 Heart rate 65 /min Jaime Moomaw EDUCATION AND OUTREACH COORDINATOR.MERCHANDISER RETAIL REPRESENTATIVE Work Phone: [facility] 09-09-2023 08:53-0400 Respiratory rate 16 /min Jaime Moomaw EDUCATION AND OUTREACH COORDINATOR.MERCHANDISER RETAIL REPRESENTATIVE Work Phone: [facility] 09-09-2023 08:53-0400 SaO2% (BldA) [Mass fraction] 100 % Jaime Moomaw EDUCATION AND OUTREACH COORDINATOR.MERCHANDISER RETAIL REPRESENTATIVE Work Phone: [facility] 09-09-2023 08:53-0400 Systolic blood pressure 112 mm[Hg] Jaime Moomaw EDUCATION AND OUTREACH COORDINATOR.MERCHANDISER RETAIL REPRESENTATIVE Work Phone: [facility] 04-27-2023 15:19-0400 Body temperature 98.1 [degF] Masoud Cartagena MD Work Phone: [facility] 04-27-2023 15:19-0400 Body weight 85.3 kg Masoud Cartagena MD Work Phone: [facility] 04-27-2023 15:19-0400 Diastolic blood pressure 84 mm[Hg] Masoud Cartagena MD Work Phone: [facility] 04-27-2023 15:19-0400 Heart rate 88 /min Masoud Cartagena MD Work Phone: [facility] 04-27-2023 15:19-0400 Respiratory rate 16 /min Masoud Cartagena MD Work Phone: [facility] 04-27-2023 15:19-0400 SaO2% (BldA) [Mass fraction] 98 % Masoud Cartagena MD Work Phone: [facility] 04-27-2023 15:19-0400 Systolic blood pressure 128 mm[Hg] Masoud Cartagena MD Work Phone: [facility] 04-01-2023 09:51-0500 Body height 188 cm Marlon Correa MD Work Phone: [facility] 04-01-2023 09:51-0500 Body weight 86.18 kg Marlon Correa MD Work Phone: [facility] 04-01-2023 09:51-0500 Diastolic blood pressure 75 mm[Hg] Marlon Correa MD Work Phone: [facility] 04-01-2023 09:51-0500 Heart rate 60 /min Marlon Correa MD Work Phone: [facility] 04-01-2023 09:51-0500 Respiratory rate 16 /min Marlon Correa MD Work Phone: [facility] 04-01-2023 09:51-0500 Systolic blood pressure 143 mm[Hg] Marlon Correa MD Work Phone: [facility] 03-28-2023 11:55-0500 Body temperature 97.59 [degF] Etta Loving MD Work Phone: [facility] 03-28-2023 11:55-0500 Body weight 87.09 kg Etta Loving MD Work Phone: [facility] 03-28-2023 11:55-0500 Heart rate 64 /min Etta Loving MD Work Phone: [facility] 03-28-2023 11:55-0500 Respiratory rate 14 /min Etta Loving MD Work Phone: [facility] 06-19-2022 11:35-0400 Body temperature 98.1 [degF] Iva Car MD Work Phone: [facility] 06-19-2022 11:35-0400 Body weight 86 kg Iva Car MD Work Phone: [facility] 06-19-2022 11:35-0400 Heart rate 84 /min Iva Car MD Work Phone: [facility] 06-19-2022 11:35-0400 Respiratory rate 16 /min Iva Car MD Work Phone: [facility] 06-14-2022 11:26-0400 Body temperature 100.71 [degF] Jules Pendlebury EDUCATION AND OUTREACH COORDINATOR.MERCHANDISER RETAIL REPRESENTATIVE Work Phone: [facility] 06-14-2022 11:26-0400 Body weight 87.09 kg Jules Pendlejaxon EDUCATION AND OUTREACH COORDINATOR.MERCHANDISER RETAIL REPRESENTATIVE Work Phone: [facility] 06-14-2022 11:26-0400 Diastolic blood pressure 64 mm[Hg] Jules Pendlebury EDUCATION AND OUTREACH COORDINATOR.MERCHANDISER RETAIL REPRESENTATIVE Work Phone: [facility] 06-14-2022 11:26-0400 Heart rate 98 /min Jules Pendlebury EDUCATION AND OUTREACH COORDINATOR.MERCHANDISER RETAIL REPRESENTATIVE Work Phone: [facility] 06-14-2022 11:26-0400 Respiratory rate 18 /min Jules Pendlebury EDUCATION AND OUTREACH COORDINATOR.MERCHANDISER RETAIL REPRESENTATIVE Work Phone: [facility] 06-14-2022 11:26-0400 SaO2% (BldA) [Mass fraction] 99 % Jules Pendlebury EDUCATION AND OUTREACH COORDINATOR.MERCHANDISER RETAIL REPRESENTATIVE Work Phone: [facility] 06-14-2022 11:26-0400 Systolic blood pressure 128 mm[Hg] Jules Self EDUCATION AND OUTREACH COORDINATOR.MERCHANDISER RETAIL REPRESENTATIVE Work Phone: [facility] 03-26-2022 15:18-0500 Body height 187.3 cm Iva Car MD Work Phone: [facility] 03-26-2022 15:18-0500 Body temperature 98.2 [degF] Iva Car MD Work Phone: [facility] 03-26-2022 15:18-0500 Body weight 85.64 kg Iva Car MD Work Phone: [facility] 03-26-2022 15:18-0500 Diastolic blood pressure 74 mm[Hg] Iva Car MD Work Phone: [facility] 03-26-2022 15:18-0500 Heart rate 86 /min Iva Car MD Work Phone: [facility] 03-26-2022 15:18-0500 Respiratory rate 16 /min Iva Car MD Work Phone: [facility] 03-26-2022 15:18-0500 Systolic blood pressure 110 mm[Hg] Iva Car MD Work Phone: [facility] 09-08-2021 11:17-0400 Body temperature 100.99 [degF] Iva Car MD Work Phone: [facility] 09-08-2021 11:17-0400 Body weight 80.92 kg Iva Car MD Work Phone: [facility] 09-08-2021 11:17-0400 Heart rate 64 /min Iva Car MD Work Phone: [facility] 09-08-2021 11:17-0400 Respiratory rate 16 /min Iva Car MD Work Phone: [facility] 09-05-2021 13:54-0400 Body temperature 101.3 [degF] Jaci Marcos APRN.MERCHANDISER RETAIL REPRESENTATIVE Work Phone: [facility] 09-05-2021 13:54-0400 Body weight 82.74 kg Jaci Marcos EDUCATION AND OUTREACH COORDINATOR.MERCHANDISER RETAIL REPRESENTATIVE Work Phone: [facility] 09-05-2021 13:54-0400 Diastolic blood pressure 80 mm[Hg] Jaci Hemant EDUCATION AND OUTREACH COORDINATOR.MERCHANDISER RETAIL REPRESENTATIVE Work Phone: [facility] 09-05-2021 13:54-0400 Heart rate 96 /min Jaci Marcos EDUCATION AND OUTREACH COORDINATOR.MERCHANDISER RETAIL REPRESENTATIVE Work Phone: [facility] 09-05-2021 13:54-0400 Respiratory rate 18 /min Jaci Marcos EDUCATION AND OUTREACH COORDINATOR.MERCHANDISER RETAIL REPRESENTATIVE Work Phone: [facility] 09-05-2021 13:54-0400 SaO2% (BldA) [Mass fraction] 97 % Jaci Marcos EDUCATION AND OUTREACH COORDINATOR.MERCHANDISER RETAIL REPRESENTATIVE Work Phone: [facility] 09-05-2021 13:54-0400 Systolic blood pressure 122 mm[Hg] Jaci Marcos EDUCATION AND OUTREACH COORDINATOR.MERCHANDISER RETAIL REPRESENTATIVE Work Phone: [facility] Encounters Encounter Date Encounter Type Care Provider Facility Start: 06-18-2024 End: 06-18-2024 Refill Shayy Merino APRN.MERCHANDISER RETAIL REPRESENTATIVE Work Phone: [facility] Comment on above: Refill Request Start: 04-29-2024 End: 04-29-2024 ambulatory SHAYY MERINO Facility:[facility] Start: 04-25-2024 End: 05-04-2024 ambulatory Marlon Correa MD Work Phone: [facility]rology [facility] Start: 04-25-2024 End: 05-04-2024 Documentation procedure Marlon Correa MD Work Phone: [facility] Comment on above: BMV Documents Start: 02-24-2024 End: 02-24-2024 Patient encounter procedure Brigida Ruiz EDUCATION AND OUTREACH COORDINATOR.MERCHANDISER RETAIL REPRESENTATIVE Work Phone: [facility] Comment on above: Viral syndrome (Prim roger Dx) Start: 02-24-2024 End: 02-24-2024 ambulatory [facility] Facility:[facility] Start: 02-11-2024 End: 02-11-2024 ambulatory [facility] Facility:[facility] Start: 02-11-2024 End: 02-11-2024 Patient encounter procedure Ca Johnson EDUCATION AND OUTREACH COORDINATOR.MERCHANDISER RETAIL REPRESENTATIVE Work Phone: [facility] Comment on above: Sore throat (Primary Dx) Start: 02-06-2024 End: 02-06-2024 Refill Shayy Stoneashlyn EDUCATION AND OUTREACH COORDINATOR.MERCHANDISER RETAIL REPRESENTATIVE Work Phone: Neurology Comment on above: Refill Request Start: 12-25-2023 End: 12-25-2023 ambulatory Storm JARAMILLO Facility:[facility] Start: 12-19-2023 End: 12-19-2023 Refill Marlon Correa MD Work Phone: Neurology Epilepsy Comment on above: Refill Request Start: 12-12-2023 End: 12-12-2023 ambulatory IVA CAR Facility:[facility] Start: 12-12-2023 End: 12-12-2023 Patient encounter procedure Iva Car MD Work Phone: [facility] Comment on above: Biceps strain, right , initial encounter (Primary Dx) Start: 12-10-2023 End: 12-10-2023 ambulatory Iva Car MD Work Phone: [facility] Comment on above: back injury Start: 11-27-2023 End: 11-27-2023 Patient encounter procedure Marlon Correa MD Work Phone: Neurology Ep[facility]psy Comment on above: Partial epilepsy (HC C) (Primary Dx) Start: 11-27-2023 End: 11-27-2023 ambulatory MARLON CORREA Facility:[facility] Start: 11-22-2023 End: 11-22-2023 Telephone encounter Marlon Correa MD Work Phone: Neurology Comment on above: medication concern ( vimpat, onfi) Start: 09-09-2023 End: 09-09-2023 ambulatory IVA CAR Facility:[facility] Start: 09-09-2023 End: 09-09-2023 Patient encounter procedure Jaime Torres EDUCATION AND OUTREACH COORDINATOR.MERCHANDISER RETAIL REPRESENTATIVE Work Phone: [facility] Comment on above: Sore throat (Primary Dx) Start: 07-30-2023 ambulatory Marlon Correa MD Work Phone: [facility] Ep[facility] Comment on above: Clobazam presription renewal, different pharmacy Refill Request Start: 07-11-2023 ambulatory Marlon Correa MD Work Phone: [facility]rology Ep[facility]psy Comment on above: Medication after vom iting Start: 07-11-2023 Telephone encounter Marlon Correa MD Work Phone: Neurology Comment on above: Medication Problem ( Should AM dose be repeated as patient vomited within 1 hour?) Start: 05-30-2023 ambulatory Marlon Correa MD Work Phone: [facility] Start: 05-30-2023 Documentation procedure Gretchen Correa MD Work Phone: [facility] Comment on above: BMV Documents Start: 05-21-2023 ambulatory Marlon Correa MD Work Phone: [facility] Comment on above: Driving Prviledges Start: 04-28-2023 Telephone encounter Kailee JARAMILLO Work Phone: [facility] Comment on above: Results Start: 04-27-2023 End: 04-27-2023 Patient encounter procedure Masoud Cartagena MD Work Phone: [facility] Comment on above: Sore throat (Primary Dx); Exposure to influenza Start: 04-19-2023 ambulatory Marlon Correa MD Work Phone: [facility] Comment on above: Missed medication do se Start: 04-01-2023 End: 04-01-2023 Patient encounter procedure Marlon Correa MD Work Phone: [facility] Comment on above: Partial epilepsy (HC C) (Primary Dx) Start: 04-01-2023 End: 04-01-2023 ambulatory MARLON CORREA Facility:[facility] Start: 03-28-2023 End: 03-28-2023 Patient encounter procedure Etta Loving MD Work Phone: [facility] [place] Comment on above: Swelling of right ey elid (Primary Dx); Acute upper respiratory infection Start: 01-18-2023 Refill Brigid Eid MD Work Phone: Neurology Comment on above: Refill Request Start: 12-25-2022 Chart abstracting Brigid tai MD Work Phone: Neurology Comment on above: Clinical Update Start: 12-24-2022 Telephone encounter Brigid ledbetter MD Work Phone: Neurology Comment on above: Patient Update (Doin g well on current dose of LCM) Start: 11-21-2022 Telephone encounter Brigid ledbetter MD Work Phone: Neurology Comment on above: medication concern ( lacosamide) Start: 11-17-2022 Refill Trey Butts PA-C Work Phone: Neurology Start: 11-16-2022 Refill Brigid Eid MD Work Phone: Neurology Comment on above: Refill Request Start: 11-12-2022 Refill Brigid Eid MD Work Phone: Neurology Comment on above: Refill Request Start: 10-25-2022 End: 10-25-2022 ambulatory Brigid Eid MD Work Phone: Neurology Comment on above: Partial epilepsy (HC C) (Primary Dx) Start: 10-25-2022 End: 10-25-2022 Telemedicine consultation with patient Brigid Eid MD Work Phone: [facility] [facility] Start: 09-14-2022 ambulatory Brigid Eid MD Work Phone: Neurology Comment on above: BMV form with signed page Start: 09-10-2022 ambulatory Brigid Eid MD Work Phone: [facility] Start: 09-10-2022 Documentation procedure Brigid Eid MD Work Phone: Neurology Comment on above: State Driving docume nts Start: 09-05-2022 Telephone encounter Brigid ledbetter MD Work Phone: Neurology Comment on above: Other (Return call) Start: 08-30-2022 ambulatory Brigid Eid MD Work Phone: [facility] Start: 08-30-2022 Follow-up encounter Brigid ledbetter MD Work Phone: Neurology Comment on above: Follow up to our [facility] tual appointment Start: 08-27-2022 Refill Brigid Eid MD Work Phone: Neurology Comment on above: Treatment Planning Start: 08-23-2022 Telephone encounter Brigid ledbetter MD Work Phone: Neurology Comment on above: General (Incident) Start: 07-11-2022 Refill Brigid Eid MD Work Phone: Neurology Comment on above: Refill Request Start: 06-19-2022 End: 06-19-2022 Patient encounter procedure Iva Car MD Work Phone: [facility] [place] Comment on above: Acute urticaria (Agatha rachel Dx); Viral upper respiratory tract infection Start: 06-14-2022 End: 06-14-2022 Office outpatient visit 15 minutes Jules Self APRN.CNP Work Phone: [facility] Comment on above: Pharyngitis, unspeci fied etiology (Primary Dx); Viral illness Start: 05-31-2022 End: 05-31-2022 Subsequent hospital visit by physician [facility] [place] Work Phone: Radiology Comment on above: Pain of left clavicl e [M89.8X1] Start: 05-07-2022 ambulatory Brigid Eid MD Work Phone: Neurology Comment on above: Further Recommendati ons for Estrella Start: 05-07-2022 Chart abstracting Brigid tai MD Work Phone: Neurology Comment on above: Clinical Update Start: 05-07-2022 Telephone encounter Brigid ledbetter MD Work Phone: Neurology Comment on above: Seizures Start: 05-06-2022 ambulatory Brigid Eid MD Work Phone: Neurology Comment on above: Part 2 of Aura Exper ience Start: 05-05-2022 Refill Brigid Eid MD Work Phone: Neurology Comment on above: Refill Request Start: 05-04-2022 Telephone encounter Radha Nestor carlin APRN.CNP Work Phone: [facility] Comment on above: Patient Update Start: 03-28-2022 End: 03-28-2022 ambulatory Brigid Eid MD Work Phone: Neurology Comment on above: Partial epilepsy (HC C) (Primary Dx); Partial epilepsy with intractable epilepsy (HCC) Start: 03-28-2022 End: 03-28-2022 Telemedicine consultation with patient Brigid Eid MD Work Phone: [facility] Start: 03-26-2022 End: 03-26-2022 Patient encounter procedure Iva Car MD Work Phone: [facility] [place] Comment on above: Encounter for genera l adult medical examination without abnormal findings (Primary Dx) Start: 03-26-2022 End: 03-26-2022 Patient encounter status Iva Car MD Work Phone: [facility] [place] Start: 03-20-2022 ambulatory Brigid Eid MD Work Phone: [facility] Start: 03-20-2022 Telemedicine consult ation with patient Brigid Eid MD Work Phone: Neurology Comment on above: 6 month telemedicine appointment Start: 03-03-2022 Telephone encounter Gregoria costello MD Work Phone: Neurology Comment on above: Medication Problem Start: 01-17-2022 End: 01-17-2022 ambulatory Immun[facility] [place] Work Phone: [facility] [place] Start: 01-14-2022 ambulatory Jackie Billings RN NURSE [employer] Comment on above: Information Start: 12-19-2021 Refill Brigid Eid MD Work Phone: Neurology Comment on above: Refill Request Start: 11-06-2021 Refill Brigid Eid MD Work Phone: Neurology Comment on above: Refill Request Start: 10-09-2021 ambulatory Iva Car MD Work Phone: [facility] Start: 10-09-2021 Documentation procedure Iva Car MD Work Phone: [facility] [place] Comment on above: [facility] Accessibility documents Start: 09-25-2021 Telephone encounter Brigid ledbetter MD Work Phone: Neurology Comment on above: Forms (BMV) Start: 09-24-2021 ambulatory Brigid Eid MD Work Phone: [facility] Start: 09-24-2021 Letter encounter Brigid Eid MD Work Phone: Neurology Comment on above: BMV letter due in 9 days Start: 09-20-2021 ambulatory Brigid Eid MD Work Phone: Neurology Comment on above: [place] [employer] BMV Recertification Form Start: 09-08-2021 End: 09-08-2021 Patient encounter procedure Iva Car MD Work Phone: [facility] [place] Comment on above: Infectious mononucle osis without complication, infectious mononucleosis due to unspecified organism (Primary Dx) Start: 09-07-2021 Telephone encounter Ca Perkins APRN.MERCHANDISER RETAIL REPRESENTATIVE Work Phone: [facility] Comment on above: Results Start: 09-05-2021 End: 09-05-2021 Patient encounter procedure Jaci Marcos APRN.MERCHANDISER RETAIL REPRESENTATIVE Work Phone: [facility] Comment on above: Sore throat (Primary Dx); Fever, unspecified fever cause; Suspected COVID-19 virus infection Start: 09-05-2021 Telephone encounter Jaci Marcos APRN.MERCHANDISER RETAIL REPRESENTATIVE Work Phone: [facility] Medicine [place] Comment on above: Patient Question Start: 08-16-2021 Refill Brigid Eid MD Work Phone: Neurology Comment on above: Refill Request Start: 08-15-2021 End: 08-15-2021 ambulatory Brigid Eid MD Work Phone: Neurology Comment on above: Partial epilepsy (HC C) (Primary Dx) Blaise's Vimpat on hand Start: 08-15-2021 End: 08-15-2021 Telemedicine consultation with patient Brigid Eid MD Work Phone: [facility] Start: 07-28-2021 Refill Brigid Eid MD Work Phone: Neurology Comment on above: Refill Request Start: 07-27-2021 ambulatory Briigd Eid MD Work Phone: Neurology Comment on above: Vimpat (Urgent) Start: 07-26-2021 ambulatory Brigid Eid MD Work Phone: Neurology Comment on above: Estrella's Vimpat Start: 07-24-2021 Refill Brigid Eid MD Work Phone: Neurology Comment on above: Refill Request Start: 07-22-2021 MC Get Medical Advice Brigid ramos MD Work Phone: Neurology Comment on above: Onfi Refill Start: 07-17-2021 GOPAL Get Medical Advice Brigid ramos MD Work Phone: Neurology Comment on above: Visit Reschedule and Vimpat and Clobazam refills Start: 07-13-2021 Telephone encounter Brigid ledbetter MD Work Phone: Neurology Comment on above: Medication Problem ( Vimpat, Briviact, Nayzilam - Pharmacy Needs Verification) Start: 07-04-2021 ambulatory Brigid Eid MD Work Phone: Neurology Comment on above: Vimpat Assistance Start: 07-02-2021 ambulatory Brigid Eid MD Work Phone: Neurology Comment on above: Reschedule Start: 06-21-2021 Chart abstracting Brigid tai MD Work Phone: Neurology Comment on above: Clinical Update Start: 07-13-2020 End: 07-13-2020 Subsequent hospital visit by physician [facility] [place] Work Phone: Radiology Comment on above: Left thigh pain [M79 .652] Procedures Date Procedure Procedure Detail Performing Clinician Start: 02-11-2024 STREP A MOLECULAR (POC) Jules Self EDUCATION AND OUTREACH COORDINATOR.MERCHANDISER RETAIL REPRESENTATIVE Work Phone: Start: 09-09-2023 STREP A MOLECULAR (POC) Jaime Torres EDUCATION AND OUTREACH COORDINATOR.MERCHANDISER RETAIL REPRESENTATIVE Work Phone: Start: 04-27-2023 STREP A MOLECULAR (POC) Masoud Cartagena MD Work Phone: Start: 06-14-2022 STREP A MOLECULAR (POC) Jules Self EDUCATION AND OUTREACH COORDINATOR.MERCHANDISER RETAIL REPRESENTATIVE Work Phone: Start: 05-31-2022 Radex clavicle complete Iva Car MD Work Phone: Start: 01-17-2022 INFLUENZA VACCINE QUADRIVALENT 6 MO - 64 YRS IM Etta Loving MD Work Phone: Start: 09-05-2021 STREP A MOLECULAR (POC) Jaci Marcos EDUCATION AND OUTREACH COORDINATOR.MERCHANDISER RETAIL REPRESENTATIVE Work Phone: Start: 08-15-2021 Adult depression scr eening assessment Brigid Eid MD Work Phone: Start: 01-27-2021 Adult depression scr eening assessment Brigid Eid MD Work Phone: Start: 07-13-2020 Radiologic examinati on femur minimum 2 views Iva Car MD Work Phone: Plan of Treatment Date Care Activity Detail Author Start: 11-27-2024 End: 11-27-2024 Patient encounter procedure 11/27/2024 9:20 AM EDT Office Visit Neurology Epilepsy [address] [place] [address] Marlon Correa MD [address] [place] [address] yearly visit Neurology Epilepsy Comment on above: yearly visit Start: 11-16-2024 Urine microalbumin profile [facility] Start: 10-12-2024 Influenza vaccination Influenz a Vaccine (Season Ended) [facility] Start: 12-12-2023 End: 12-12-2023 Patient encounter procedure 12/12/2023 10:30 AM EDT Office Visit [facility] [place] [address] [place] [address] Iva Car MD [address] [place], [place] [id number] back/right arm pain after lifting weights-over extended and lifted with my back instead of legs Pain in a small area right upper mid back and slight pain in right arm(when doing something such as lifting a gallon of milk). [facility] [place] Comment on above: back/right arm pain after lifting weights-over extended and lifted with my back instead of legs Pain in a small area right upper mid back and slight pain in right arm(when doing something such as lifting a gallon of milk). Start: 11-27-2023 End: 02-26-2024 CLOBAZAM CLOBAZAM Lab Routine Partial epilepsy (HCC) Expected: 11/27/2023, Expires: 02/26/2024 [facility] Comment on above: Expected: 11/27/2023 , Expires: 02/26/2024 Start: 11-27-2023 End: 02-26-2024 LACOSAMIDE LACOSAMIDE Lab Routine Partial epilepsy (HCC) Expected: 11/27/2023, Expires: 02/26/2024 [facility] Work Phone: Comment on above: Expected: 11/27/2023 , Expires: 02/26/2024 Start: 11-27-2023 End: 11-27-2023 Patient encounter procedure 11/27/2023 10:20 AM EDT Office Visit Neurology Epilepsy [address] [address] Marlon Correa MD [address] [place] [address] 6 month follow up Neurology Epilepsy Comment on above: 6 month follow up Start: 10-13-2023 Covid-19 Vaccine ( season) Covid-19 Vaccine () [facility] Start: 10-13-2023 Influenza vaccination Influenza Vacc ine (#1) [facility] Start: 10-04-2023 End: 10-04-2023 Patient encounter procedure 10/04/2023 9:40 AM EDT Office Visit Neurology Epilepsy [address] [facility] [address] [place] [address] Marlon Correa MD [address] [place] [address] 6 month follow up Neurology Epilepsy Comment on above: 6 month follow up Start: 02-11-2023 Behavioral Health Screening Behavioral Health Screening [facility] Start: 02-11-2023 Depression Assessment Depression Ass essment [facility] Start: 10-25-2022 End: 12-25-2022 LACOSAMIDE LACOSAMIDE Lab Routine Partial epilepsy (HCC) Expected: 10/25/2022, Expires: 12/25/2022 [facility] Work Phone: Comment on above: Expected: 10/25/2022 , Expires: 12/25/2022 Start: 10-12-2022 Covid-19 Vaccine () Covid-19 Vaccine () [facility] Start: 10-12-2022 Influenza vaccination [facility] Start: 09-24-2022 End: 11-24-2022 CLOBAZAM CLOBAZAM Lab Routine Partial epilepsy (HCC) Expected: 09/24/2022 (Approximate), Expires: 11/24/2022 [facility] Work Phone: Comment on above: Expected: 09/24/2022 (Approximate), Expires: 11/24/2022 Start: 09-24-2022 End: 11-24-2022 LACOSAMIDE LACOSAMIDE Lab Routine Partial epilepsy (HCC) Expected: 09/24/2022 (Approximate), Expires: 11/24/2022 [facility] Work Phone: Comment on above: Expected: 09/24/2022 (Approximate), Expires: 11/24/2022 Start: 08-15-2022 Adult depression screening assessment DEPRESSION SCREENING [facility] Start: 06-14-2022 End: 06-28-2022 Influenza virus A and B RNA and SARS-CoV-2 (COVID-19) N gene panel - Respiratory specimen by LNEORE with probe detection [facility] Work Phone: Comment on above: Expected: 06/14/2022 , Expires: 06/28/2022 Start: 02-11-2022 DEPRESSION ASSESSMENT DEPRESSION ASS ESSMENT [facility] Start: 01-27-2022 Adult depression screening assessment DEPRESSION SCREENING [facility] Start: 10-12-2021 Influenza vaccination INFLUENZA (#1) [facility] Start: 09-05-2021 End: 11-05-2021 Heterophile Ab [Presence] in Serum by Latex agglutination MONOTEST, INFECTIOUS MONO Lab Routine Sore throat Expected: 09/05/2021, Expires: 11/05/2021 [facility] Work Phone: Comment on above: Expected: 09/05/2021 , Expires: 11/05/2021 Start: 09-05-2021 End: 09-19-2021 Influenza virus A and B RNA and SARS-CoV-2 (COVID-19) N gene panel - Respiratory specimen by LENORE with probe detection [facility] Work Phone: Comment on above: Expected: 09/05/2021 , Expires: 09/19/2021 Start: 04-04-2021 COVID-19 VACCINE (4 - Booster for Pfizer series) COVID-19 VACCINE (4 - Booster for Pfizer series) [facility] Start: 04-04-2021 COVID-19 VACCINE (4 - Pfizer series) COVID-19 VACCINE (4 - Pfizer series) [facility] Start: 2021 Anxiety Screening Anxiety Screening [facility] Start: 2021 Depression Screening Depression Scre ening [facility] Start: 2021 HEPATITIS C SCREENING HEPATITIS C [facility] Start: 2021 Hepatitis C screening Hepatitis C [facility] Start: 2021 HIV SCREENING HIV SCREENING [facility] Start: 2021 HIV screening HIV Screening [facility] Start: 02-11-2021 DEPRESSION ASSESSMENT DEPRESSION ASS ESSMENT [facility] Start: 2019 Meningococcal B Vacc ine (1 of 2 - Standard) Meningococcal B Vaccine (1 of 2 - Standard) [facility] Start: 2019 Meningococcal B Vacc ine: Consider Based On Risk (1 of 2 - Patient Seeks Protection) Meningococcal B Vaccine: Consider Based On Risk (1 of 2 - Patient Seeks Protection) [facility] Start: 2019 MENINGOCOCCAL B: Consider based on risk (1 of 2 - Patient Seeks Protection) MENINGOCOCCAL B: Consider based on risk (1 of 2 - Patient Seeks Protection) [facility] Start: 2017 PEDS TO ADULT TRANSI TION ANNUAL ASSESSMENT PEDS TO ADULT TRANSITION ANNUAL ASSESSMENT [facility] Start: 2013 MENINGOCOCCAL B: Consider based on risk (1 of 2 - Risk Bexsero 2-dose series) MENINGOCOCCAL B: Consider based on risk (1 of 2 - Risk Bexsero 2-dose series) [facility] Influenza virus A an d B RNA and SARS-CoV-2 (COVID-19) N gene panel - Respiratory specimen by LENORE with probe detection COVID & INFLUENZA A/B NAAT, ROUTINE Microbiology Routine Sore throat Exposure to influenza 04/27/2023 3:36 PM EDT [facility] Work Phone: SARS-CoV-2 (COVID-19 ) RNA [Presence] in Respiratory specimen by LENORE with probe detection COVID NAAT, UPPER RESPIRATORY, ROUTINE Microbiology Routine Sore throat Ordered: 09/09/2023 [facility] Work Phone: Comment on above: Ordered: 09/09/2023 [facility] Immunizations Immunization Date Immunization Notes Care Provider [facility] 01-24-2023 influenza, injectabl e, quadrivalent, contains preservative Etta Loving MD Work Phone: [facility] 01-24-2023 influenza virus vaccine, unspecified formulation Jaime Torres EDUCATION AND OUTREACH COORDINATORJeronimoMERCHANDISER RETAIL REPRESENTATIVE Work Phone: [facility] 01-17-2022 influenza, injectabl e, quadrivalent, contains preservative Immunization [place] Work Phone: [facility] Work Phone: 01-17-2022 influenza virus vaccine, unspecified formulation Brigid Eid MD Work Phone: [facility] 02-07-2021 COVID-19 vaccine, ag e 12+ yr (PFIZER-BIONTECH - PURPLE TOP) Brigid Eid MD Work Phone: [facility] 11-30-2020 influenza, injectabl e, quadrivalent, contains preservative Brigid Eid MD Work Phone: [facility] 05-14-2020 COVID-19 vaccine, ag e 12+ yr (PFIZER-BIONTECH - PURPLE TOP) Brigid Eid MD Work Phone: [facility] 04-23-2020 COVID-19 vaccine, ag e 12+ yr (PFIZER-BIONTECH - PURPLE TOP) Brigid Eid MD Work Phone: [facility] 01-15-2020 meningococcal polysaccharide (groups A, C, Y and W-135) diphtheria toxoid conjugate vaccine (MCV4P) Brigid Eid MD Work Phone: [facility] 11-07-2019 influenza, injectabl e, quadrivalent, contains preservative Brigid Eid MD Work Phone: [facility] 11-27-2018 influenza, injectabl e, quadrivalent, preservative free Brigid Eid MD Work Phone: [facility] Work Phone: 12-14-2017 influenza, injectabl e, quadrivalent, contains preservative Brigid Eid MD Work Phone: [facility] 11-23-2016 Human Papillomavirus 9-valent vaccine Brigid Eid MD Work Phone: [facility] 11-23-2016 influenza, injectabl e, quadrivalent, contains preservative Brigid Eid MD Work Phone: [facility] 11-24-2015 Human Papillomavirus 9-valent vaccine Brigid Eid MD Work Phone: [facility] 11-24-2015 influenza, injectabl e, quadrivalent, preservative free Brigid Eid MD Work Phone: [facility] 11-16-2014 influenza, live, intranasal, quadrivalent Brigid Eid MD Work Phone: [facility] 11-16-2014 meningococcal polysaccharide (groups A, C, Y and W-135) diphtheria toxoid conjugate vaccine (MCV4P) Brigid Eid MD Work Phone: [facility] 11-16-2014 tetanus toxoid, redu james diphtheria toxoid, and acellular pertussis vaccine, adsorbed Brigid Eid MD Work Phone: [facility] 11-10-2013 influenza, seasonal, injectable Brigid Eid MD Work Phone: [facility] Work Phone: 11-10-2012 influenza virus vaccine, live, attenuated, for intranasal use Brigid Eid MD Work Phone: [facility] Work Phone: 11-10-2012 varicella virus vaccine Alpesh Eid MD Work Phone: [facility] Work Phone: 02-13-2012 influenza virus vaccine, live, attenuated, for intranasal use Brigid Eid MD Work Phone: [facility] 11-11-2010 influenza virus vaccine, unspecified formulation Brigid Eid MD Work Phone: [facility] 12-01-2009 influenza virus vaccine, live, attenuated, for intranasal use Brigid Eid MD Work Phone: [facility] 01-24-2009 novel [id number], all formulations Brigid Eid MD Work Phone: [facility] Work Phone: 11-29-2008 influenza virus vaccine, live, attenuated, for intranasal use Brigid Eid MD Work Phone: [facility] Work Phone: 04-16-2008 diphtheria, tetanus toxoids and acellular pertussis vaccine Brigid Eid MD Work Phone: [facility] Work Phone: 04-16-2008 measles, mumps and rubella virus vaccine Brigid Eid MD Work Phone: [facility] Work Phone: 04-16-2008 poliovirus vaccine, inactivated Brigid Eid MD Work Phone: [facility] Work Phone: 12-26-2007 influenza virus vaccine, live, attenuated, for intranasal use Brigid Eid MD Work Phone: [facility] Work Phone: 12-23-2006 influenza virus vaccine, unspecified formulation Brigid Eid MD Work Phone: [facility] Work Phone: 01-18-2006 influenza virus vaccine, unspecified formulation Brigid Eid MD Work Phone: [facility] 12-19-2004 influenza virus vaccine, unspecified formulation Brigid Eid MD Work Phone: [facility] Work Phone: 05-26-2004 diphtheria, tetanus toxoids and acellular pertussis vaccine Brigid Eid MD Work Phone: [facility] 05-26-2004 haemophilus influenz ae type b vaccine, HbOC conjugate Brigid Eid MD Work Phone: [facility] 05-26-2004 pneumococcal conjuga te vaccine, 7 valent Brigid Eid MD Work Phone: [facility] 02-28-2004 measles, mumps and rubella virus vaccine Brigid Eid MD Work Phone: [facility] 02-28-2004 varicella virus vaccine Alpesh Eid MD Work Phone: [facility] 2003 influenza virus vaccine, unspecified formulation Brigid Eid MD Work Phone: [facility] 2003 diphtheria, tetanus toxoids and acellular pertussis vaccine Brigid Eid MD Work Phone: [facility] 2003 haemophilus influenz ae type b vaccine, HbOC conjugate Brigid Eid MD Work Phone: [facility] 2003 hepatitis B vaccine, pediatric or pediatric/adolescent dosage Brigid Eid MD Work Phone: [facility] 2003 pneumococcal conjuga te vaccine, 7 valent Brigid Eid MD Work Phone: [facility] 2003 poliovirus vaccine, inactivated Brigid Eid MD Work Phone: [facility] 2003 diphtheria, tetanus toxoids and acellular pertussis vaccine Brigid Eid MD Work Phone: [facility] 2003 haemophilus influenz ae type b vaccine, HbOC conjugate Brigid Eid MD Work Phone: [facility] 2003 pneumococcal conjuga te vaccine, 7 valent Brigid Eid MD Work Phone: [facility] 2003 poliovirus vaccine, inactivated Brigid Eid MD Work Phone: [facility] 2003 diphtheria, tetanus toxoids and acellular pertussis vaccine Brigid Eid MD Work Phone: [facility] 2003 haemophilus influenz ae type b vaccine, HbOC conjugate Brigid Eid MD Work Phone: [facility] 2003 hepatitis B vaccine, pediatric or pediatric/adolescent dosage Brigid Eid MD Work Phone: [facility] 2003 pneumococcal conjuga te vaccine, 7 valent Brigid Eid MD Work Phone: [facility] 2003 poliovirus vaccine, inactivated Brigid Eid MD Work Phone: [facility] 2003 hepatitis B vaccine, pediatric or pediatric/adolescent dosage Brigid Eid MD Work Phone: [facility] Payers Date Payer Category Payer Self-pay 2022 Private Health Insurance [id number] 2021 Private Health Insurance [employer] Aniya WHALEN PPO [id number] 2021-Present [phone] [address] [place] [address] PPO [id number] 2020 Private Health Insurance xxx [id number] 2019 Private Health Insurance [id number] Unknown [id number] Social History Date Type Detail Facility Start: 07-25-2010 End: 04-01-2023 Tobacco smoking status NHIS Never smoked tobacco [facility] Work Phone: Start: 02-06-2021 End: 02-24-2024 Alcohol intake Current non-drinker of alcohol (finding) [facility] Start: 01-24-2021 History SDOH Physica l Activity DPW 4 [facility] Start: 01-24-2021 History SDOH Physica l Activity MPS 6 [facility] Start: 01-24-2021 End: 09-05-2021 History SDOH Food Worry 1 [facility] Start: 01-24-2021 End: 03-26-2022 History SDOH Transport Med 2 [facility] Start: 2003 Sex Assigned At Male [facility] Start: 06-12-2020 End: 09-05-2021 Exposure to SARS-CoV-2 (event) Not sure [facility] Start: 07-25-2010 End: 04-01-2023 Tobacco use and exposure Smokeless tobacco non-user [facility] Work Phone: Start: 03-26-2022 History SDOH Social Connections Living 7 [facility] Start: 03-26-2022 History SDOH Physica l Activity MPS 12 [facility] Start: 03-26-2022 End: 06-19-2022 History of Social function [facility] Start: 03-26-2022 End: 06-19-2022 Social connection and isolation panel [facility] Frequency of Communication with Friends and Family Not on file [facility] Are you now , , , , never or living with a partner? Never [facility] How hard is it for y ou to pay for the very basics like food, housing, medical care, and heating Not very hard [facility] (I/We) worried wheth er (my/our) food would run out before (I/we) got money to buy more. Never true [facility] In the past 12 month s, was there a time when you were not able to pay the mortgage or rent on time? No [facility] [facility] Start: 01-01-2020 Gender identity Identifies as male gender (finding) [facility] Start: 01-01-2020 Sexual orientation Heterosexual (jennifer adamson) [facility] NEGATED: Highlighted rowStart: GERARDOF History of tobacco use Passive smoker [facility] Functional Status Date Assessment Result Facility 03-02-2014 Are you deaf, or do you have serious difficulty hearing No 03/02/2014 3:57 PM Tammy Carey RN No [facility] 03-02-2014 Are you blind, or do you have serious difficulty seeing, even when wearing glasses No 03/02/2014 3:57 PM Tammy Carey RN No [facility] 03-02-2014 Do you have serious difficulty walking or climbing stairs No 03/02/2014 3:57 PM Tammy Carey RN No [facility] 03-02-2014 Do you have difficul ty dressing or bathing No 03/02/2014 3:57 PM Tammy Carey RN No [facility] Mental Status Date Assessment Result Facility 03-02-2014 Because of a physica l, mental, or emotional condition, do you have serious difficulty concentrating, remembering, or making decisions No 03/02/2014 3:57 PM Tammy Carey RN No [facility] Clinical Notes 03-11-2020 to 06-18-2024 Telephone Encounter - Shayy Merino APRN.CM - 06/18/2024 11:37 AM EDTTelephone Encounter - Shayy Meirno APRN.CNP - 06/18/2024 11:37 AM LOUTBrigida Ruiz APRN.CNP - 02/24/2024 1:40 PM EST Note Date & Type Note Facility 06-18-2024 Telephone encounter Note The following approved medication requests have been transmitted electronically. Requested Prescriptions Signed Prescriptions Disp Refills lacosamide (VIMPAT) 200 mg 450 tablet 1 Sig: TAKE 2 TABLETS BY MOUTH EVERY MORNING AND 3 TABLETS DAILY AT BEDTIME. Authorizing Provider: SHAYY MERINO APRN.[employer]CH[employer] RETAIL REPRESENTATIVE [facility] 06-18-2024 Miscellaneous Notes The following approved medication requests have been transmitted electronically. Requested Prescriptions Signed Prescriptions Disp Refills lacosamide (VIMPAT) 200 mg 450 tablet 1 Sig: TAKE 2 TABLETS BY MOUTH EVERY MORNING AND 3 TABLETS DAILY AT BEDTIME. Authorizing Provider: SHAYY MERINO APRN.CNP Prescription Refill: Requested by: pharmacy Please E-Scribe Caller Contact Number: Pharmacy Name: [facility] Pharmacy Number: [phone] Generic/ brand: 30 or 90 day supply requested: 90 Last appointment: 11/27/23 Next Appointment: 11/27/[address] Kya Carroll [phone] [id number] documented in this encounter [facility] 06-18-2024 Telephone encounter Note Prescription Refill: Requested by: pharmacy Please E-Scribe Caller Contact Number: Pharmacy Name: [facility] Pharmacy Number: [phone] Generic/ brand: 30 or 90 day supply requested: 90 Last appointment: 11/27/23 Next Appointment: 11/27/[address] Kya Carroll [id number] [id number] [facility] 05-04-2024 Telephone encounter Note Form signed. Lata Rose RN [facility] 05-04-2024 Miscellaneous Notes Form signed. Lata Rose RN Latest Ref Rng 04/29/2024 Clobazam 30 - 300 ng/mL 414.0 (H) N-desmethylclobazam 300 - 3000 ng/mL 1130.0 Latest Ref Rng 08/25/2022 Clobazam 30 - 300 ng/mL 533.0 (H) N-desmethylclobazam 300 - 3000 ng/mL 1050.0 Latest Ref Rng 04/29/2024 Lacosamide 2.2 - 19.8 ug/mL 11.6 BMV form completed, sent to Dr. Correa via [employer] ([employer] for review and signature. Copies to [employer]. Forwarded to [employer] for review. Lata Rose RN Seizures started - 03/2019 Last seizure - 11/2022 ASM's - LCM, CLB Last levels - 04/29/24 - pending Last visit - 11/27/23 BMV form completed, pended for ASM level results. Lata oRse RN 11/27/2023: No new seizures. No changes made today. PLAN: Continue Vimpat 400-600, Onfi 20 mg twice daily We will check ASM levels. Last ASM levels completed in 2022. Forwarded to [employer] for lacosamide, clobazam level lab order. Lata Rose RN documented in this encounter [facility] 05-04-2024 Telephone encounter Note Latest Ref Rng 04/29/2024 Clobazam 30 - 300 ng/mL 414.0 (H) N-desmethylclobazam 300 - 3000 ng/mL 1130.0 Latest Ref Rng 08/25/2022 Clobazam 30 - 300 ng/mL 533.0 (H) N-desmethylclobazam 300 - 3000 ng/mL 1050.0 Latest Ref Rng 04/29/2024 Lacosamide 2.2 - 19.8 ug/mL 11.6 BMV form completed, sent to Dr. Correa via [employer] ([employer] for review and signature. Copies to [employer]. Forwarded to [employer] for review. Lata Rose RN T [facility] 04-30-2024 Telephone encounter Note Seizures started - 03/2019 Last seizure - 11/2022 ASM's - LCM, CLB Last levels - 04/29/24 - pending Last visit - 11/27/23 BMV form completed, pended for ASM level results. Lata Rose RN [facility] 04-27-2024 Telephone encounter Note 11/27/2023: No new seizures. No changes made today. PLAN: Continue Vimpat 400-600, Onfi 20 mg twice daily We will check ASM levels. Last ASM levels completed in 2022. Forwarded to [employer] for lacosamide, clobazam level lab order. Lata Rose RN T [facility] 02-24-2024 Note HNO ID: [id number] Author: BRIGIDA RUIZ APRN.MERCHANDISER RETAIL REPRESENTATIVE Service: ? Author Type: Nurse Practitioner Type: Progress Notes Filed: 02/24/2024 14:07 Note Text: Subjective HPI HPI Estrella Carroll is a 19 year old male who presents today for CC of cough/improving, h/a, chills, stomach ache. This started 1 day ago. Has tried otc medication for relief. Symptoms are worsened by nothing. Risk factors sick exposures at home with similar s/s. 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 lacosamide (VIMPAT) 200 mg TAKE 2 TABLETS BY MOUTH EVERY MORNING AND 3 TABLETS DAILY AT BEDTIME. midazolam (NAYZILAM) 5 mg/spray (0.1 mL) nasal spray Give 5 mg (0.1 ml) as a single dose in ONE nostril for seizure cluster or prolonged seizure lasting > 3 minutes. The same dose may be repeated in 10 minutes in the OTHER nostril if the seizure continues after the first dose. mens gummy multivitamin (CENTRUM) chewable tablet Take 1 tablet by mouth once daily. fluticasone (FLONASE) 50 mcg/actuation nasal spray Use 2 Sprays in each nostril once daily. Rinse mouth after use. (Patient not taking: Reported on 02/24/2024) FAMILY HISTORY Problem Relation Age of Onset other (diverticulitis) Maternal Grandmother other (LEUKEMIA) Maternal Grandfather Social History Tobacco Use Smoking status: Never Passive exposure: Never Smokeless tobacco: Never Vaping Use Vaping status: Never Used Substance Use Topics Alcohol use: No Drug use: No Review of Systems Constitutional: Negative for fever. HENT: Negative for congestion, ear pain, nosebleeds and sore throat. Respiratory: Positive for cough. Negative for shortness of breath and wheezing. Gastrointestinal: Negative for constipation, diarrhea, nausea and vomiting. Musculoskeletal: Negative for neck pain. Skin: Negative for itching. Neurological: Positive for headaches. Objective Blood pressure 130/70, pulse (!) 55, temperature 36.9 ?C (98.4 ?F), resp. rate 17, weight 85.3 kg (188 lb 0.8 oz), SpO2 100%. Physical Exam Constitutional: General: He is not in acute distress. Appearance: Normal appearance. He is not toxic-appearing or diaphoretic. HENT: Head: Normocephalic and atraumatic. Mouth/Throat: Lips: [place]. Mouth: Mucous membranes are moist. Pharynx: Oropharynx is clear. Uvula midline. Cardiovascular: Rate and Rhythm: Normal rate and regular rhythm. Heart sounds: Normal heart sounds, S1 normal and S2 normal. Pulmonary: Effort: Pulmonary effort is normal. Breath sounds: Normal breath sounds. Abdominal: General: Bowel sounds are normal. Palpations: Abdomen is soft. Tenderness: There is no abdominal tenderness. Lymphadenopathy: Cervical: No cervical adenopathy. Right cervical: No superficial cervical adenopathy. Left cervical: No superficial cervical adenopathy. Skin: General: Skin is warm and dry. Neurological: Mental Status: He is alert and oriented to person, place, and time. Gait: Gait is intact. ASSESSMENT/PLAN: 1. Viral syndrome - ICD9: 079.99, ICD10: B34.9 - Discussed viral etiology and rationale for treatment. - Symptomatic treatment with prn analgesia - Supportive care with fluids and rest - Follow up in 3-5 days if symptoms persist or sooner if worsening of symptoms Brigida Ruiz APRN.[facility] 02-24-2024 History of Present illness Narrative Subjective HPI HPI Estrella Carroll is a 19 year old male who presents today for CC of cough/improving, h/a, chills, stomach ache. This started 1 day ago. Has tried otc medication for relief. Symptoms are worsened by nothing. Risk factors sick exposures at home with similar s/s. 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 lacosamide (VIMPAT) 200 mg TAKE 2 TABLETS BY MOUTH EVERY MORNING AND 3 TABLETS DAILY AT BEDTIME. midazolam (NAYZILAM) 5 mg/spray (0.1 mL) nasal spray Give 5 mg (0.1 ml) as a single dose in ONE nostril for seizure cluster or prolonged seizure lasting > 3 minutes. The same dose may be repeated in 10 minutes in the OTHER nostril if the seizure continues after the first dose. mens gummy multivitamin (CENTRUM) chewable tablet Take 1 tablet by mouth once daily. fluticasone (FLONASE) 50 mcg/actuation nasal spray Use 2 Sprays in each nostril once daily. Rinse mouth after use. (Patient not taking: Reported on 02/24/2024) FAMILY HISTORY Problem Relation Age of Onset other (diverticulitis) Maternal Grandmother other (LEUKEMIA) Maternal Grandfather Social History Tobacco Use Smoking status: Never Passive exposure: Never Smokeless tobacco: Never Vaping Use Vaping status: Never Used Substance Use Topics Alcohol use: No Drug use: No Review of Systems Constitutional: Negative for fever. HENT: Negative for congestion, ear pain, nosebleeds and sore throat. Respiratory: Positive for cough. Negative for shortness of breath and wheezing. Gastrointestinal: Negative for constipation, diarrhea, nausea and vomiting. Musculoskeletal: Negative for neck pain. Skin: Negative for itching. Neurological: Positive for headaches. Objective Blood pressure 130/70, pulse (!) 55, temperature 36.9 C (98.4 F), resp. rate 17, weight 85.3 kg (188 lb 0.8 oz), SpO2 100%. Physical Exam Constitutional: General: He is not in acute distress. Appearance: Normal appearance. He is not toxic-appearing or diaphoretic. HENT: Head: Normocephalic and atraumatic. Mouth/Throat: Lips: [place]. Mouth: Mucous membranes are moist. Pharynx: Oropharynx is clear. Uvula midline. Cardiovascular: Rate and Rhythm: Normal rate and regular rhythm. Heart sounds: Normal heart sounds, S1 normal and S2 normal. Pulmonary: Effort: Pulmonary effort is normal. Breath sounds: Normal breath sounds. Abdominal: General: Bowel sounds are normal. Palpations: Abdomen is soft. Tenderness: There is no abdominal tenderness. Lymphadenopathy: Cervical: No cervical adenopathy. Right cervical: No superficial cervical adenopathy. Left cervical: No superficial cervical adenopathy. Skin: General: Skin is warm and dry. Neurological: Mental Status: He is alert and oriented to person, place, and time. Gait: Gait is intact. ASSESSMENT/PLAN: 1. Viral syndrome - ICD9: 079.99, ICD10: B34.9 - Discussed viral etiology and rationale for treatment. - Symptomatic treatment with prn analgesia - Supportive care with fluids and rest - Follow up in 3-5 days if symptoms persist or sooner if worsening of symptoms Brigida Ruiz APRN.CM documented in this encounter [facility] 02-11-2024 Ca Rodriguez APRN.CNP - 02/11/2024 1:56 PM EST ASSESSMENT/PLAN: 1. Sore throat - ICD9: 462, ICD10: J02.9 - suspect viral - Group A strep molecular testing negative - Discussed supportive care treatment with fluids, rest and analgesia. - STREP A MOLECULAR (POC) - flonase nasal spray, cepacol lozenges, chloraseptic spray for sore throat relief. - Follow-up with your PCP in 3-5 days if symptoms have not improved or sooner if symptoms worsen - Discussed red flags and need for immediate medical evaluation if any occur. - Discussed supportive care treatment with fluids, rest and analgesia. - Discussed expected course of illness Ca Johnson APRN.CNP SORE THROAT INSTRUCTIONS SORE THROAT OVERVIEW - Sore throat is a common problem during childhood, and is usually the result of a bacterial or viral infection. Although sore throat usually resolves without complications, it sometimes requires treatment with an antibiotic. There are some less common causes of sore throat that are serious or even life-threatening. This topic will discuss the most common causes and treatments of sore throat in children, as well as the warning signs of more serious conditions. SORE THROAT CAUSES - The most likely cause of a child's sore throat depends upon the child's age, the season, and the geographic area. While viruses are the most common cause of sore throat, bacteria are another common cause. Bacteria and viruses are spread from one person to another through hand contact. Hands get contaminated when the sick individual touches their nose or mouth and then touches another person directly (lvfa-kw-lmbg contact) or indirectly (kljk-kt-ultwot, such as doorknob, telephone, toys). It is difficult to determine the cause of sore throat based upon symptoms alone; an examination and laboratory test are recommended in most cases Viruses - There are many viruses that can cause pain and swelling of the throat. The most common include viruses that cause sore throat as part of an upper respiratory infection, such as the common cold. Other viruses that cause sore throat include influenza, adenovirus, and Sandy-Robb virus (the cause of mononucleosis). Symptoms - Symptoms that may occur with a viral infection can include a runny nose and congestion, irritation or redness of the eyes, cough, hoarseness, soreness in the roof of the mouth, a skin rash, or diarrhea. In addition, children with viral infections may have a fever and may feel miserable. A high fever does not necessarily mean that the child has a bacterial infection. Group A streptococcus - Group A streptococcus (GAS) is the name of the bacterium that causes strep throat. Although other bacteria can cause a sore throat, GAS is the most common bacterial cause; up to 30 percent of children with a sore throat will have GAS. Strep throat usually occurs during the winter and early spring, and is most common in school-age children and their younger siblings. Symptoms - Symptoms of strep throat in children older than 3 years often develop suddenly and include fever (temperature ?100.4 F or 38 C), headache, abdominal pain, nausea, and vomiting. Other symptoms can include swollen glands in the neck, white patches of pus in the back or sides of the throat, small red spots on the roof of the mouth, and swelling of the uvula. A cough and cold are not commonly seen in children with strep throat. Strep throat is uncommon in children younger than age 2 to 3 years. However, GAS infection can occur in younger children, and may cause a runny nose and congestion that is prolonged, low-grade fever (?101 F or 38.3 C), and tender glands in the neck. Infants younger than 1 year may be fussy and have a decreased appetite and low-grade fever. SORE THROAT TREATMENT - The treatment of sore throat depends upon the cause; strep throat is treated with an antibiotic while viral pharyngitis is treated with rest, pain relievers, and other measures to reduce symptoms. Strep throat - Strep throat is usually treated with an antibiotic, such as penicillin, or an antibiotic similar to penicillin (eg, amoxicillin). Children who are allergic to penicillin will be given an alternate antibiotic. The antibiotic is usually given in pill or liquid form two or three times per day. A one-time injection is also available, and may be recommended if a child is unwilling to take an oral medication. After completing 24 hours of antibiotics, the child is no longer contagious and may return to school. Symptoms usually improve within 1 to 2 days. However, it is important for the child to finish the entire course of treatment (usually 10 days). If a child does not begin to improve or worsens within 3 days, the child should be reevaluated. Throat pain can be treated with a non-prescription pain medication, if needed. (See 'Pain medications' below.) In addition, parents should monitor their child for dehydration, which can develop if the child is not willing to drink or eat due to a sore throat. (See 'Monitor for dehydration' below.) Viral throat pain - Sore throat caused by viral infections usually last 4 to 5 days. During this time, treatments to reduce pain may be helpful but will not help to eliminate the virus. Antibiotics do not improve throat pain caused by a virus and are not recommended. A child with a viral infection is usually allowed to return to school when there has been no fever for 24 hours and the child feels well enough to pay attention. Pain medications - Throat pain can be treated with a mild pain reliever such as acetaminophen (Tylenol ) or a non-steroidal anti-inflammatory agent such as ibuprofen (Motrin ). These medications should be dosed according to weight, not age. Aspirin is not recommended for children <18 years due to the risk of a potentially serious condition known as Regina syndrome. Monitor for dehydration - Some children with a sore throat are reluctant to drink or eat due to pain. Drinking less fluid can lead to dehydration. To reduce the risk of dehydration, parents can offer warm or cold liquids. (See 'Other interventions' below.) Signs and symptoms of mild dehydration include a slightly dry mouth, increased thirst, and decreased urine output (one wet diaper or void in six hours). Signs of moderate or severe dehydration include decreased urine output (less than one wet diaper or void in six hours), lack of tears when crying, dry mouth, and sunken eyes. A child who is moderately or severely dehydrated should be evaluated by a healthcare provider as soon as possible to determine if treatment is needed. Oral rinses- Salt-water gargles are an old stand-by for relief of throat pain. It is not clear if this treatment is effective, but it is unlikely to be harmful. Most recipes suggest 1/4 to 1/2 teaspoon of salt per cup (8 ounces) of warm water. The water should be gargled and then spit out (not swallowed). Children younger than six to eight years are not able to gargle properly. An oral rinse composed of equal parts of diphenhydramine (Benadryl liquid) and Maalox (magnesium hydroxide, aluminum hydroxide, and simethicone) may be helpful for pain caused by a sore mouth or ulcers in the mouth. Children older than six to eight years may swish and spit (not swallow) the mixture. Sprays - Sprays containing topical anesthetics are available to treat sore throat. However, such sprays are no more effective than sucking on hard candy. In addition, a common anesthetic ingredient, benzocaine, can cause allergic reactions. We do not recommend throat sprays for children. Lozenges - A variety of medicated throat lozenges are available to relieve dryness or pain. However, it is not clear that lozenges work any better than hard candy. We do not recommend throat lozenges for children, especially children younger than 3 to 4 years, who can choke. Sucking on hard candy may provide some relief for children older than 3 to 4 years, who are not at risk for choking. Other interventions - Other interventions include sipping warm beverages (eg, honey or lemon tea, chicken soup), cold beverages, or eating cold or frozen desserts (eg, ice cream, popsicles). These treatments are safe for children. Honey should not be given to children younger than 12 months due to the potential risk of botulism poisoning. Alternative therapies - Health food stores, vitamin outlets, and Internet Web sites offer alternative treatments for relief of sore throat pain. We do not recommend these treatments due to the risks of contamination with pesticides/herbicides, inaccurate labeling and dosing information, and a lack of studies showing that these treatments are safe and effective. SORE THROAT PREVENTION - Hand washing is an essential and highly effective way to prevent the spread of infection. Hands should be wet with water and plain soap, and rubbed together for 15 to 30 seconds. Special attention should be paid to the fingernails, between the fingers, and the wrists. Hands should be rinsed thoroughly, and dried with a single use towel. Alcohol-based hand rubs are a good alternative for disinfecting hands if a sink is not available. Hand rubs should be spread over the entire surface of hands, fingers, and wrists until dry, and may be used several times. These rubs can be used repeatedly without skin irritation or loss of effectiveness. Hand rubs are available as a liquid or wipe in small, portable sizes that are easy to carry in a pocket or handbag. When a sink is available, visibly soiled hands should be washed with soap and water. Hands should be washed after coughing, blowing the nose or sneezing. While it is not always possible to limit contact with a person who is sick, avoiding touching the eyes, nose, or mouth after direct contact can help to prevent the spread of infection. In addition, tissues should be used to cover the mouth when sneezing or coughing. These used tissues should be disposed of promptly. Sneezing/coughing into the sleeve of one's clothing (at the inner elbow) is another means of containing sprays of saliva and secretions and has the advantage of not contaminating the hands. WHEN TO SEEK HELP - Parents of a child with throat pain and one or more of the following should contact their healthcare provider immediately: Difficulty swallowing or breathing Excessive drooling in an or young child Temperature ?101 F or 38.3 C Swelling of the neck Child is unable or unwilling to drink or eat Voice sounds muffled Child has a stiff neck or difficulty opening the mouth WHERE TO GET MORE INFORMATION - Your child's healthcare provider is the best source of information for questions and concerns related to your child's medical problem. This article will be updated as needed every four months on our web site ([email or web address]). Information below was obtained from Up to date Last literature review version 19.2: June 2010 This topic last updated: September 28, 2009 documented in this encounter [facility] 02-11-2024 Note HNO ID: [id number] Author: CA JOHNSON APRN.MERCHANDISER RETAIL REPRESENTATIVE Service: ? Author Type: Nurse Practitioner Type: Progress Notes Filed: 02/11/2024 13:56 Note Text: Subjective Sore Throat Associated symptoms include congestion and coughing. Pertinent negatives include no diarrhea, ear pain or vomiting. Estrella Carroll is a 18 year old male who presents with sore throat for the past 3 or 4 days. He had one day of fever at onset of illness. He has had nasal congestion and drainage. He rates his sore throat pain 3/10. Review of Systems Constitutional: Negative for chills, fever and malaise/fatigue. HENT: Positive for congestion and sore throat. Negative for ear pain. Respiratory: Positive for cough. Cardiovascular: Negative. Gastrointestinal: Negative for diarrhea, nausea and vomiting. Musculoskeletal: Negative for myalgias. BP 132/78 Pulse 76 Temp 37.1 ?C (98.8 ?F) (Tympanic) Resp 16 Wt 86.7 kg (191 lb 2.2 oz) SpO2 100% BMI 24.54 kg/m? 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 lacosamide (VIMPAT) 200 mg TAKE 2 TABLETS BY MOUTH EVERY MORNING AND 3 TABLETS DAILY AT BEDTIME. midazolam (NAYZILAM) 5 mg/spray (0.1 mL) nasal spray Give 5 mg (0.1 ml) as a single dose in ONE nostril for seizure cluster or prolonged seizure lasting > 3 minutes. The same dose may be repeated in 10 minutes in the OTHER nostril if the seizure continues after the first dose. mens gummy multivitamin (CENTRUM) chewable tablet Take 1 tablet by mouth once daily. FAMILY HISTORY Problem Relation Age of Onset other (diverticulitis) Maternal Grandmother other (LEUKEMIA) Maternal Grandfather Social History Tobacco Use Smoking status: Never Passive exposure: Never Smokeless tobacco: Never Vaping Use Vaping status: Never Used Substance Use Topics Alcohol use: No Drug use: No Objective Physical Exam Vitals and nursing note reviewed. Constitutional: General: He is not in acute distress. Appearance: Normal appearance. He is not ill-appearing. HENT: Right Ear: Tympanic membrane, ear canal and external ear normal. Left Ear: Tympanic membrane, ear canal and external ear normal. Nose: Congestion and rhinorrhea present. Mouth/Throat: Mouth: Mucous membranes are moist. Pharynx: Uvula midline. Posterior oropharyngeal erythema and postnasal drip present. No oropharyngeal exudate. Cardiovascular: Rate and Rhythm: Normal rate and regular rhythm. Heart sounds: Normal heart sounds. Pulmonary: Effort: Pulmonary effort is normal. No respiratory distress. Breath sounds: Normal breath sounds. No wheezing or rales. Musculoskeletal: Cervical back: Neck supple. Lymphadenopathy: Cervical: No cervical adenopathy. Skin: General: Skin is warm and dry. Findings: No erythema or rash. Neurological: Mental Status: He is alert. ASSESSMENT/PLAN: 1. Sore throat - ICD9: 462, ICD10: J02.9 - suspect viral - Group A strep molecular testing negative - Discussed supportive care treatment with fluids, rest and analgesia. - STREP A MOLECULAR (POC) - flonase nasal spray, cepacol lozenges, chloraseptic spray for sore throat relief. - Follow-up with your PCP in 3-5 days if symptoms have not improved or sooner if symptoms worsen - Discussed red flags and need for immediate medical evaluation if any occur. - Discussed supportive care treatment with fluids, rest and analgesia. - Discussed expected course of illness Ca Johnson APRN.[facility] 02-11-2024 History of Present illness Narrative Subjective Sore Throat Associated symptoms include congestion and coughing. Pertinent negatives include no diarrhea, ear pain or vomiting. Estrella Carroll is a 18 year old male who presents with sore throat for the past 3 or 4 days. He had one day of fever at onset of illness. He has had nasal congestion and drainage. He rates his sore throat pain 3/10. Review of Systems Constitutional: Negative for chills, fever and malaise/fatigue. HENT: Positive for congestion and sore throat. Negative for ear pain. Respiratory: Positive for cough. Cardiovascular: Negative. Gastrointestinal: Negative for diarrhea, nausea and vomiting. Musculoskeletal: Negative for myalgias. 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 lacosamide (VIMPAT) 200 mg TAKE 2 TABLETS BY MOUTH EVERY MORNING AND 3 TABLETS DAILY AT BEDTIME. midazolam (NAYZILAM) 5 mg/spray (0.1 mL) nasal spray Give 5 mg (0.1 ml) as a single dose in ONE nostril for seizure cluster or prolonged seizure lasting > 3 minutes. The same dose may be repeated in 10 minutes in the OTHER nostril if the seizure continues after the first dose. mens gummy multivitamin (CENTRUM) chewable tablet Take 1 tablet by mouth once daily. FAMILY HISTORY Problem Relation Age of Onset other (diverticulitis) Maternal Grandmother other (LEUKEMIA) Maternal Grandfather Social History Tobacco Use Smoking status: Never Passive exposure: Never Smokeless tobacco: Never Vaping Use Vaping status: Never Used Substance Use Topics Alcohol use: No Drug use: No Objective Physical Exam Vitals and nursing note reviewed. Constitutional: General: He is not in acute distress. Appearance: Normal appearance. He is not ill-appearing. HENT: Right Ear: Tympanic membrane, ear canal and external ear normal. Left Ear: Tympanic membrane, ear canal and external ear normal. Nose: Congestion and rhinorrhea present. Mouth/Throat: Mouth: Mucous membranes are moist. Pharynx: Uvula midline. Posterior oropharyngeal erythema and postnasal drip present. No oropharyngeal exudate. Cardiovascular: Rate and Rhythm: Normal rate and regular rhythm. Heart sounds: Normal heart sounds. Pulmonary: Effort: Pulmonary effort is normal. No respiratory distress. Breath sounds: Normal breath sounds. No wheezing or rales. Musculoskeletal: Cervical back: Neck supple. Lymphadenopathy: Cervical: No cervical adenopathy. Skin: General: Skin is warm and dry. Findings: No erythema or rash. Neurological: Mental Status: He is alert. ASSESSMENT/PLAN: 1. Sore throat - ICD9: 462, ICD10: J02.9 - suspect viral - Group A strep molecular testing negative - Discussed supportive care treatment with fluids, rest and analgesia. - STREP A MOLECULAR (POC) - flonase nasal spray, cepacol lozenges, chloraseptic spray for sore throat relief. - Follow-up with your PCP in 3-5 days if symptoms have not improved or sooner if symptoms worsen - Discussed red flags and need for immediate medical evaluation if any occur. - Discussed supportive care treatment with fluids, rest and analgesia. - Discussed expected course of illness Ca Johnson APRN.[employer] documented in this encounter [facility] 02-06-2024 Telephone encounter Note The following approved medication requests have been transmitted electronically. Requested Prescriptions Signed Prescriptions Disp Refills cloBAZam (ONFI) 10 mg tab tablet 360 tablet 1 Sig: Take 2 tablets by mouth two times a day for 180 days. Authorizing Provider: SIRISHA WOOTEN APRN.[employer] [facility] 02-06-2024 Miscellaneous Notes The following approved medication requests have been transmitted electronically. Requested Prescriptions Signed Prescriptions Disp Refills cloBAZam (ONFI) 10 mg tab tablet 360 tablet 1 Sig: Take 2 tablets by mouth two times a day for 180 days. Authorizing Provider: SIRISHA WOOTEN APRN.CNP Prescription Refill: Requested by: patient Please E-Scribe Caller Contact Number: Pharmacy Name: [facility] Pharmacy Number: [phone] Generic/ brand: 30 or 90 day supply requested: 90 Last appointment: 11/27/23 Next Appointment: 11/27/[address] Kya Carroll [id number] [address] [id number] documented in this encounter [facility] 02-06-2024 Telephone encounter Note Prescription Refill: Requested by: patient Please E-Scribe Caller Contact Number: Pharmacy Name: [facility] Pharmacy Number: [phone] Generic/ brand: 30 or 90 day supply requested: 90 Last appointment: 11/27/23 Next Appointment: 11/27/[address] Kya Carroll [id number] [address] [id number] [facility] 12-19-2023 Telephone encounter Note The following approved medication requests have been transmitted electronically. Requested Prescriptions Signed Prescriptions Disp Refills lacosamide (VIMPAT) 200 mg 450 tablet 1 Sig: TAKE 2 TABLETS BY MOUTH EVERY MORNING AND 3 TABLETS DAILY AT BEDTIME. Authorizing Provider: SHAYY MERINO APRN.[employer] [facility] 12-19-2023 Miscellaneous Notes The following approved medication requests have been transmitted electronically. Requested Prescriptions Signed Prescriptions Disp Refills lacosamide (VIMPAT) 200 mg 450 tablet 1 Sig: TAKE 2 TABLETS BY MOUTH EVERY MORNING AND 3 TABLETS DAILY AT BEDTIME. Authorizing Provider: SHAYY MERINO APRN.CNP Prescription Refill: Requested by: pharmacy Please E-Scribe Caller Contact Number: Pharmacy Name: [facility] Pharmacy Number: [phone] Generic/ brand: 30 or 90 day supply requested: 90 Last appointment: 11/27/23 Next Appointment: 11/27/[address] Correa documented in this encounter [facility] 12-19-2023 Telephone encounter Note Prescription Refill: Requested by: pharmacy Please E-Scribe Caller Contact Number: Pharmacy Name: [facility] Pharmacy Number: [phone] Generic/ brand: 30 or 90 day supply requested: 90 Last appointment: 11/27/23 Next Appointment: 11/27/[address] Correa [facility] 12-12-2023 Note HNO ID: [id number] Author: IVA CAR MD Service: ? Author Type: Physician Type: Progress Notes Filed: 12/23/2023 10:35 Note Text: Estrella Carroll is a 18-year-old [id number] athletic and healthy male who presents to the office today for concerns of right arm and posterior shoulder discomfort present for the last several days after lifting weights. Patient is athletic and is well versed in proper technique. He states the pain is improving. No complaints of weakness or paresthesias in the right arm. 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 PAST MEDICAL HISTORY Diagnosis Date COVID-19 virus infection 03/11/2020 positive PCR test 03/11/20 COVID-19 virus infection 03/11/2020 positive PCR test 03/11/20 Epilepsy (HCC) Partial epilepsy with intractable epilepsy (HCC) 02/29/2020 PAST SURGICAL HISTORY Procedure Laterality Date CIRCUMCISION LAPAROSCOPIC APPENDECTOMY 02-21-14 OPEN TX CLAVICULAR FRACTURE INTERNAL FIXATION ALLERGIES Allergen Reactions Codeine Other: See Comments, Unknown Aversion Levetiracetam Rash Oxcarbazepine Other: See Comments, Rash Neutropenia, hyponatremia Seasonal Allergies Cough Shellfish Containin* Unknown Pre caution dad is allergic 12/12/23 1040 Pulse: 60 Resp: 14 Temp: 36.6 ?C (97.8 ?F) TempSrc: Temporal Weight: 83.2 kg (183 lb 6.4 oz) Inspection: Shoulder: No visible deformities, swelling, or asymmetry. Skin over the shoulder area is intact with no discoloration or scars. Elbow: No deformities, swelling, or redness. Skin is intact without any lesions or scars. Palpation: Shoulder: No tenderness upon palpation of the clavicle, acromioclavicular joint, scapula, or humeral head. No palpable masses or abnormalities. Elbow: No tenderness over the lateral or medial epicondyles, olecranon, or radial head. No warmth or swelling noted. Range of Motion (ROM): Shoulder: Flexion: 0 to 180 degrees Extension: 0 to 60 degrees Abduction: 0 to 180 degrees Adduction: 0 to 50 degrees Internal Rotation: 0 to 90 degrees External Rotation: 0 to 90 degrees Elbow: Flexion: 0 to 150 degrees Extension: 0 degrees (full extension) Pronation: 0 to 80 degrees Supination: 0 to 80 degrees Strength: Shoulder: Muscle strength is 5/5 in all directions (flexion, extension, abduction, adduction, internal rotation, and external rotation). Elbow: Muscle strength is 5/5 for flexion and extension. Special Tests: Shoulder: Negative Neer?s and Hammond-Cristiano tests (impingement). Negative Drop Arm test (rotator cuff integrity). Negative Apprehension test (shoulder stability). Negative Speed's test Elbow: Negative Tinel?s sign over the ulnar nerve. Negative Cozen?s test (lateral epicondylitis). Negative Golfer?s elbow test (medial epicondylitis). Neurovascular: Intact sensation over the shoulder and elbow regions. Radial, ulnar, and brachial pulses are strong and equal bilaterally. ASSESSMENT/PLAN: 1. Biceps strain, right, initial encounter - ICD9: 840.8, ICD10: S46.211A Reassurance given his normal examination. Recommend resting from his particular routine at this time for the next 7 to 10 days. May use ibuprofen 400 mg every 8 hours as needed for pain or discomfort. I spent a total of 25 minutes on the date of the service which included preparing to see the patient, [id number] patient care, completing clinical documentation, obtaining and/or reviewing separately obtained history, performing a medically appropriate examination, counseling and educating the patient/family/caregiver, and ordering medications, tests, or procedures. Follow-up prn Iva Car MD [facility] Department of Pediatrics, [facility] 12-12-2023 History of Present illness Narrative Estrella Carroll is a 18-year-old [id number] athletic and healthy male who presents to the office today for concerns of right arm and posterior shoulder discomfort present for the last several days after lifting weights. Patient is athletic and is well versed in proper technique. He states the pain is improving. No complaints of weakness or paresthesias in the right arm. 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 PAST MEDICAL HISTORY Diagnosis Date COVID-19 virus infection 03/11/2020 positive PCR test 03/11/20 COVID-19 virus infection 03/11/2020 positive PCR test 03/11/20 Epilepsy (HCC) Partial epilepsy with intractable epilepsy (HCC) 02/29/2020 PAST SURGICAL HISTORY Procedure Laterality Date CIRCUMCISION LAPAROSCOPIC APPENDECTOMY 02-21-14 OPEN TX CLAVICULAR FRACTURE INTERNAL FIXATION ALLERGIES Allergen Reactions Codeine Other: See Comments, Unknown Aversion Levetiracetam Rash Oxcarbazepine Other: See Comments, Rash Neutropenia, hyponatremia Seasonal Allergies Cough Shellfish Containin* Unknown Pre caution dad is allergic 12/12/23 1040 Pulse: 60 Resp: 14 Temp: 36.6 C (97.8 F) TempSrc: Temporal Weight: 83.2 kg (183 lb 6.4 oz) Inspection: Shoulder: No visible deformities, swelling, or asymmetry. Skin over the shoulder area is intact with no discoloration or scars. Elbow: No deformities, swelling, or redness. Skin is intact without any lesions or scars. Palpation: Shoulder: No tenderness upon palpation of the clavicle, acromioclavicular joint, scapula, or humeral head. No palpable masses or abnormalities. Elbow: No tenderness over the lateral or medial epicondyles, olecranon, or radial head. No warmth or swelling noted. Range of Motion (ROM): Shoulder: Flexion: 0 to 180 degrees Extension: 0 to 60 degrees Abduction: 0 to 180 degrees Adduction: 0 to 50 degrees Internal Rotation: 0 to 90 degrees External Rotation: 0 to 90 degrees Elbow: Flexion: 0 to 150 degrees Extension: 0 degrees (full extension) Pronation: 0 to 80 degrees Supination: 0 to 80 degrees Strength: Shoulder: Muscle strength is 5/5 in all directions (flexion, extension, abduction, adduction, internal rotation, and external rotation). Elbow: Muscle strength is 5/5 for flexion and extension. Special Tests: Shoulder: Negative Neer s and Hammond-Cristiano tests (impingement). Negative Drop Arm test (rotator cuff integrity). Negative Apprehension test (shoulder stability). Negative Speed's test Elbow: Negative Tinel s sign over the ulnar nerve. Negative Cozen s test (lateral epicondylitis). Negative Golfer s elbow test (medial epicondylitis). Neurovascular: Intact sensation over the shoulder and elbow regions. Radial, ulnar, and brachial pulses are strong and equal bilaterally. ASSESSMENT/PLAN: 1. Biceps strain, right, initial encounter - ICD9: 840.8, ICD10: S46.211A Reassurance given his normal examination. Recommend resting from his particular routine at this time for the next 7 to 10 days. May use ibuprofen 400 mg every 8 hours as needed for pain or discomfort. I spent a total of 25 minutes on the date of the service which included preparing to see the patient, [id number] patient care, completing clinical documentation, obtaining and/or reviewing separately obtained history, performing a medically appropriate examination, counseling and educating the patient/family/caregiver, and ordering medications, tests, or procedures. Follow-up prn Iva Car MD [facility] Department of Pediatrics, [facility] documented in this encounter [facility] 12-10-2023 Telephone encounter Note Reports lifting weights last evening, extended my back and unfortunately lifted with my back instead of legs. Pain in a small area right upper mid back, some pain into right arm only when lifting like a gallon of milk. Denies any numbness or tingling. No swelling/bruising. Is still able to move normally just has some discomfort. Appt scheduled, patient only wanted to see pcp, for . Patient states he is not going to lift any more weights until cleared by pcp. Reason for Disposition [1] MODERATE back pain (e.g., interferes with normal activities) AND [2] present > 3 days Back pain from overuse (work, exercise, gardening) OR from twisting, lifting, or bending injury Answer Assessment - Initial Assessment Questions 1. MECHANISM: How did the injury happen? Note: Consider the possibility of domestic violence or elder abuse. was lifting weights yesterday, and I extended my back out too far and pulled with my back instead of my legs 2. ONSET: When did the injury happen? (e.g., minutes or hours ago) yesterday 3. LOCATION: What part of the back is injured? right side of back, middle upper, very small area running into my right arm 4. SEVERITY: Can you move the back normally? yes, freely, does have pain at times with movement 5. PAIN: Is there any pain? If Yes, ask: How bad is the pain? (Scale 0-10; or none, mild, moderate, severe) - NONE (0): No pain. - MILD (1-3): Doesn't interfere with normal activities. - MODERATE (4-7): Interferes with normal activities or awakens from sleep. - SEVERE (8-10): Excruciating pain, unable to do any normal activities. background sharp pain mostly, but can to get to a 5 out of 10, 6. SIZE: For cuts, bruises, or swelling, ask: How large is it? (e.g., inches or centimeters) denies 7. TETANUS: For any breaks in the skin, ask: When was the last tetanus booster? denies 8. NEUROLOGIC SYMPTOMS: Any weakness or numbness of the arms or legs? no numbness, maybe fatigue feeling 9. OTHER SYMPTOMS: Do you have any other symptoms? (e.g., abdomen pain, blood in urine) denies 10. : Is there any chance you are ? When was your last menstrual period? na Answer Assessment - Initial Assessment Questions 1. ONSET: When did the pain begin? (e.g., minutes, hours, days) yesterday 2. LOCATION: Where does it hurt? (upper, mid or lower back) mid upper back, small area into right arm when lifting something such as a gallon of milk 3. SEVERITY: How bad is the pain? (e.g., Scale 1-10; mild, moderate, or severe) - MILD (1-3): Doesn't interfere with normal activities. - MODERATE (4-7): Interferes with normal activities or awakens from sleep. - SEVERE (8-10): Excruciating pain, unable to do any normal activities. 5 at the worst 4. PATTERN: Is the pain constant? (e.g., yes, no; constant, intermittent) constant pain, worsens with lifting 5. RADIATION: Does the pain shoot into your legs or somewhere else? denies shooting pains anywhwere 6. CAUSE: What do you think is causing the back pain? lifting weights wrong last night per patient 7. BACK OVERUSE: Any recent lifting of heavy objects, strenuous work or exercise? yes 8. MEDICINES: What have you taken so far for the pain? (e.g., nothing, acetaminophen, NSAIDS) 9. NEUROLOGIC SYMPTOMS: Do you have any weakness, numbness, or problems with bowel/bladder control? denies 10. OTHER SYMPTOMS: Do you have any other symptoms? (e.g., fever, abdomen pain, burning with urination, blood in urine) denies 11. : Is there any chance you are ? When was your last menstrual period? na Protocols used: Back [id number], Back [id number] [facility] 12-10-2023 Miscellaneous Notes Reports lifting weights last evening, extended my back and unfortunately lifted with my back instead of legs. Pain in a small area right upper mid back, some pain into right arm only when lifting like a gallon of milk. Denies any numbness or tingling. No swelling/bruising. Is still able to move normally just has some discomfort. Appt scheduled, patient only wanted to see pcp, for . Patient states he is not going to lift any more weights until cleared by pcp. Reason for Disposition [1] MODERATE back pain (e.g., interferes with normal activities) AND [2] present > 3 days Back pain from overuse (work, exercise, gardening) OR from twisting, lifting, or bending injury Answer Assessment - Initial Assessment Questions 1. MECHANISM: How did the injury happen? Note: Consider the possibility of domestic violence or elder abuse. was lifting weights yesterday, and I extended my back out too far and pulled with my back instead of my legs 2. ONSET: When did the injury happen? (e.g., minutes or hours ago) yesterday 3. LOCATION: What part of the back is injured? right side of back, middle upper, very small area running into my right arm 4. SEVERITY: Can you move the back normally? yes, freely, does have pain at times with movement 5. PAIN: Is there any pain? If Yes, ask: How bad is the pain? (Scale 0-10; or none, mild, moderate, severe) - NONE (0): No pain. - MILD (1-3): Doesn't interfere with normal activities. - MODERATE (4-7): Interferes with normal activities or awakens from sleep. - SEVERE (8-10): Excruciating pain, unable to do any normal activities. background sharp pain mostly, but can to get to a 5 out of 10, 6. SIZE: For cuts, bruises, or swelling, ask: How large is it? (e.g., inches or centimeters) denies 7. TETANUS: For any breaks in the skin, ask: When was the last tetanus booster? denies 8. NEUROLOGIC SYMPTOMS: Any weakness or numbness of the arms or legs? no numbness, maybe fatigue feeling 9. OTHER SYMPTOMS: Do you have any other symptoms? (e.g., abdomen pain, blood in urine) denies 10. : Is there any chance you are ? When was your last menstrual period? na Answer Assessment - Initial Assessment Questions 1. ONSET: When did the pain begin? (e.g., minutes, hours, days) yesterday 2. LOCATION: Where does it hurt? (upper, mid or lower back) mid upper back, small area into right arm when lifting something such as a gallon of milk 3. SEVERITY: How bad is the pain? (e.g., Scale 1-10; mild, moderate, or severe) - MILD (1-3): Doesn't interfere with normal activities. - MODERATE (4-7): Interferes with normal activities or awakens from sleep. - SEVERE (8-10): Excruciating pain, unable to do any normal activities. 5 at the worst 4. PATTERN: Is the pain constant? (e.g., yes, no; constant, intermittent) constant pain, worsens with lifting 5. RADIATION: Does the pain shoot into your legs or somewhere else? denies shooting pains anywhwere 6. CAUSE: What do you think is causing the back pain? lifting weights wrong last night per patient 7. BACK OVERUSE: Any recent lifting of heavy objects, strenuous work or exercise? yes 8. MEDICINES: What have you taken so far for the pain? (e.g., nothing, acetaminophen, NSAIDS) 9. NEUROLOGIC SYMPTOMS: Do you have any weakness, numbness, or problems with bowel/bladder control? denies 10. OTHER SYMPTOMS: Do you have any other symptoms? (e.g., fever, abdomen pain, burning with urination, blood in urine) denies 11. : Is there any chance you are ? When was your last menstrual period? na Protocols used: Back [id number], Back [id number] documented in this encounter [facility] 12-09-2023 Note HNO ID: [id number] Author: MARLON CORREA MD Service: ? Author Type: Physician Type: Progress Notes Filed: 12/09/2023 14:52 Note Text: [facility] Patient Name: Estrella Carroll Date of : 2005 ESTABLISHED EPILEPSY CLINIC NOTE 11/27/2023 10:20 AM Reason for Visit: Follow Up and Epilepsy Clinical Summary: Mr. Carroll is a 18 year old right-handed male seen in [facility]. EPILEPSY CLASSIFICATION Focal Epilepsy Left hemisphere Seizures: 1. Right Leg Somatosensory Aura -> Right Versive Seizure -> Generalized Tonic-Clonic Seizure HISTORY OF PRESENT ILLNESS Handedness: right-handed Age of onset: Seizure History and Evolution EPILEPSY CLASSIFICATION: Focal epilepsy (left hemisphere) SEIZURES: Right leg somatosensory -> Right versive -> Generalized tonic clonic seizures MRI: Normal ([facility]) ETIOLOGY: Unknown EEG: Left temporo-parietal sharp waves ([facility] - by report - not confirmed upon review of selected samples) ASSOCIATED CONDITIONS: Anxiety, ADHD Weight by report: 89 kg Blaise had onset of seizures at 14 years of age. On 03/20/2019, Blaise had onset of seizures with a cluster of 3 seizures in about 12 hours. The first involved confusion and garbled speech, and the next 2 evolved to generalized tonic clonic convulsion. In retrospect, about a week earlier, he had a missed seizure in his bedroom - he felt the paranoia that he later realized was his aura, walked to close the door, blacked out, and woke up in his bed with a black eye. On 03/20/2019, Blaise was admitted to [facility] where EEG was interpreted to show left temporo-parietal sharp waves {not appreciated on the samples sent for review] and MRI was normal. He was started on oxcarbazepine. Subsequent lab work showed hyponatremia and neutropenia. In late 03/2019, a transition to levetiracetam was initiated. Six days after starting levetiracetam, and about 1 month after starting oxcarbazepine, he developed a whole body rash. Both drugs were stopped, and he was started on clobazam. Since then, seizures have remained a concern. Features included an aura of paranoia and confusion, garbled speech, and tingling in the right foot which spread to the right leg and the then right side of the head for about 45 seconds. He usually signaled the seizure vocally, saying Mom or Dad or grunting. He then lay down on the floor on his side in a position, and as he blacked out his head jerked to the right with evolution to whole body stiffening and tremor with extension of the arms, fisting of the hands, grunting, labored breathing, and foaming at the mouth, without tongue bite or urine loss (video reviewed). Convulsions lasted 60 to 80 seconds, followed by headache and sleep. After medication was started, the tingling began on the right side of the head, without origin in the right foot and leg. In addition, he has also had a few seizures with the typical aura of paranoia and confusion, with garbled speech and no further evolution. All but one of his seizures have occurred while awake. Sleep deprivation is a trigger. Since onset of seizures in 03/2019, Felix has had the following events. - 04/2019 - 1 seizure on clobazam 20 mg/d - 04/2019 to 01/2020 - episodes of brain fog for a few seconds or minutes, with no outward sign, recurring once every other day - exact nature unclear [plus a panic attack in 07/2019, with normal bedside EEG] - 11/2019 to 02/2020 - 1 to 3 seizure per month, all but one with evolution to generalized tonic clonic convulsion, on brivaracetam and clobazam. Most recent seizure (02/17/2020) occurred on brivaracetam 200 mg/d and clobazam 40 mg/d. Blaise had no seizures while on oxcarbazepine for about a month, but with neutropenia, hyponatremia, and rash (6 days after addition of levetiracetam). He was on clobazam alone until 08/2020 then breviracetam alone for about 6 weeks, and then clobazam was added back in 11/2019 and increased to 40 mg/d by 02/2020. Throughout this period, seizures persisted every 2 to 3 weeks. After a seizure on 02/17/2020, Blaise was started on lacosamide 400 mg/d (with clobazam and brivaracetam), with cessation of seizures. SEIZURE OVERVIEW Lacosamide was started after a right sensorimotor -> generalized tonic clonic seizure on 02/17/2020. He has had no further seizures of this type since then. Over time Blaise reported brain fog episodes which have recurred over time since at least early 2019. I just kind of zone out and can't understand words that people are saying for about 8 seconds. Witnesses do not notice anything. Frequency is sporadic - 1 to 2 per week, then none for 2 or 3 weeks. - 05/05/2022 - One seizure with a rising sensation and brain fog, during which he heard incorrectly - some things came through, others not - and he heard things that aren't there. He remained able (more content not included)... [facility] 12-09-2023 History of Present illness Narrative [facility] Patient Name: Estrella Carroll Date of : 2005 ESTABLISHED EPILEPSY CLINIC NOTE 11/27/2023 10:20 AM Reason for Visit: Follow Up and Epilepsy Clinical Summary: Mr. Carroll is a 18 year old right-handed male seen in [facility]. EPILEPSY CLASSIFICATION Focal Epilepsy Left hemisphere Seizures: 1. Right Leg Somatosensory Aura -> Right Versive Seizure -> Generalized Tonic-Clonic Seizure HISTORY OF PRESENT ILLNESS Handedness: right-handed Age of onset: Seizure History and Evolution EPILEPSY CLASSIFICATION: Focal epilepsy (left hemisphere) SEIZURES: Right leg somatosensory -> Right versive -> Generalized tonic clonic seizures MRI: Normal ([facility]) ETIOLOGY: Unknown EEG: Left temporo-parietal sharp waves ([facility] - by report - not confirmed upon review of selected samples) ASSOCIATED CONDITIONS: Anxiety, ADHD Weight by report: 89 kg Blaise had onset of seizures at 14 years of age. On 03/20/2019, Blaise had onset of seizures with a cluster of 3 seizures in about 12 hours. The first involved confusion and garbled speech, and the next 2 evolved to generalized tonic clonic convulsion. In retrospect, about a week earlier, he had a missed seizure in his bedroom - he felt the paranoia that he later realized was his aura, walked to close the door, blacked out, and woke up in his bed with a black eye. On 03/20/2019, Blaise was admitted to [facility] where EEG was interpreted to show left temporo-parietal sharp waves {not appreciated on the samples sent for review] and MRI was normal. He was started on oxcarbazepine. Subsequent lab work showed hyponatremia and neutropenia. In late 03/2019, a transition to levetiracetam was initiated. Six days after starting levetiracetam, and about 1 month after starting oxcarbazepine, he developed a whole body rash. Both drugs were stopped, and he was started on clobazam. Since then, seizures have remained a concern. Features included an aura of paranoia and confusion, garbled speech, and tingling in the right foot which spread to the right leg and the then right side of the head for about 45 seconds. He usually signaled the seizure vocally, saying Mom or Dad or grunting. He then lay down on the floor on his side in a position, and as he blacked out his head jerked to the right with evolution to whole body stiffening and tremor with extension of the arms, fisting of the hands, grunting, labored breathing, and foaming at the mouth, without tongue bite or urine loss (video reviewed). Convulsions lasted 60 to 80 seconds, followed by headache and sleep. After medication was started, the tingling began on the right side of the head, without origin in the right foot and leg. In addition, he has also had a few seizures with the typical aura of paranoia and confusion, with garbled speech and no further evolution. All but one of his seizures have occurred while awake. Sleep deprivation is a trigger. Since onset of seizures in 03/2019, Felix has had the following events. - 04/2019 - 1 seizure on clobazam 20 mg/d - 04/2019 to 01/2020 - episodes of brain fog for a few seconds or minutes, with no outward sign, recurring once every other day - exact nature unclear [plus a panic attack in 07/2019, with normal bedside EEG] - 11/2019 to 02/2020 - 1 to 3 seizure per month, all but one with evolution to generalized tonic clonic convulsion, on brivaracetam and clobazam. Most recent seizure (02/17/2020) occurred on brivaracetam 200 mg/d and clobazam 40 mg/d. Blaise had no seizures while on oxcarbazepine for about a month, but with neutropenia, hyponatremia, and rash (6 days after addition of levetiracetam). He was on clobazam alone until 08/2020 then breviracetam alone for about 6 weeks, and then clobazam was added back in 11/2019 and increased to 40 mg/d by 02/2020. Throughout this period, seizures persisted every 2 to 3 weeks. After a seizure on 02/17/2020, Blaise was started on lacosamide 400 mg/d (with clobazam and brivaracetam), with cessation of seizures. SEIZURE OVERVIEW Lacosamide was started after a right sensorimotor -> generalized tonic clonic seizure on 02/17/2020. He has had no further seizures of this type since then. Over time Blaise reported brain fog episodes which have recurred over time since at least early 2019. I just kind of zone out and can't understand words that people are saying for about 8 seconds. Witnesses do not notice anything. Frequency is sporadic - 1 to 2 per week, then none for 2 or 3 weeks. - 05/05/2022 - One seizure with a rising sensation and brain fog, during which he heard incorrectly - some things came through, others not - and he heard things that aren't there. He remained able to walk and talk during the episode. The entire seizure lasted 2 or 3 minutes until full recovery. Occurred on lacosamide 600 mg/d with level 5.9 mg/l in 02/2021 (usual range 2 -19 mg/l) and clobazam 40 mg/d, in the setting of sleep deprivation (playing video games at night). - 08/23/2022 - One seizure which felt the same as the one in 04/2022. His father heard an odd noise while Blaise was taking a shower, and found Blaise sitting on the steps with his head turned to the side, making some coughing / guttural noises. His father placed his hand on Blaise's knee and the noises stopped and he responded immediately. Blaise remembered the entire event and reported that he had some brain fog and a rising sensation with an inability to hear correctly while in the bathroom, and came out and sat on the steps. Occurred on lacosamide 700 mg/d and clobazam 40 mg/d with good adherence. - 09/27/2022 - Another episode of brain fog - 10/12/2022 - Similar to previous events - he sat quietly, appeared to be 'there', could sometimes talk, at times nonsensically, and did not hear us well, but was not in full seizure mode, for about 60 seconds. Occurred on lacosamide 800 mg/d and clobazam 40 mg/d - 10/24/2022 - Occurred at work. Estrella described that he had one of his episodes of brain fog - he felt it coming on, sat down in some boxes and gradually recovered over several minutes (co-workers stayed with him). Occurred on lacosamide 800 mg/d and clobazam 40 mg/d. Since at least early 2019, Blaise has had sporadic episodes of brain fog. I just kind of zone out and can't understand words that people are saying for about 8 seconds. Witnesses do not notice anything. Frequency is sporadic - 1 to 2 per week, then none for 2 or 3 weeks. In 04/2022 and 08/2022, the brain fog further evolved to include what an inability to hear correctly, and hearing things that weren't there. It is possible that the brain fog episodes are epileptic seizures. Episodes have persisted on lacosamide up to 800 mg/d and clobazam 40 mg/d. IN SUMMARY Blaise has epilepsy since 14 years of age. Seizure semiology indicated onset near the leg somatosensory region in the left hemisphere. In [facility], MRI was normal and EEG was interpreted to showed left temporo-parietal sharp waves, although samples were normal to our review. MRI was normal. Seizures persisted on clobazam and brivaracetam. Oxcarbazepine was stopped after 1 week because of neutropenia, hyponatremia, and rash. Lacosamide was started in 02/2020, at 15 years of age, with no further right somatosensory then generalized tonic clonic seizures since then. He had 2 years of seizure freedom until April 2022. Between April 2022 to November 2022 patient had episodes of auras of auditory distortion, word finding difficulty (word substitution-parents may understand based on the context-for example they say scooter instead of a sidewalk) In 10/2022, lacosamide was increased from 800 to 1000 mg/d (with clobazam), with no further episodes of brain fog since then. It was elected to make no change for now. Future untried options include lamotrigine, topiramate, zonisamide, cenobamate, and felbamate. Interval Seizure History Doing well. No new seizures. Feels dizzy when taking medications. At times takes them on empty stomach. Total # of Current Anti-seizure Medications: Side Effects to Current Anti-seizure Medications: Seizure Frequency at First Visit: Longest Seizure-free Interval: CURRENT OUTPATIENT ANTISEIZURE MEDICATIONS (as of the start of the encounter) cloBAZam (ONFI) 10 mg tab tablet (Taking) Take (2) tablets by mouth twice daily (= 40 mg/d) lacosamide (VIMPAT) 200 mg (Taking) Take 2 tablets by mouth every morning AND 3 tablets daily at bedtime. midazolam (NAYZILAM) 5 mg/spray (0.1 mL) nasal spray (Taking) Give 5 mg (0.1 ml) as a single dose in ONE nostril for seizure cluster or prolonged seizure lasting > 3 minutes. The same dose may be repeated in 10 minutes in the OTHER nostril if the seizure continues after the first dose. Prior Anti-seizure Therapies: Trial Adequacy: Max Daily Dose Achieved: Side Effects: Effectiveness: Comments: Brivaracetam Clobazam Lacosamide Levetiracetam Rash after 6 days (with oxcarbazepine, started 1 month prior) Oxcarbazepine Rash after 1 month (with levetiracetam) - also hyponatremia and neutropenia on 1800 mg/d, with no seizures PRIOR RESCUE THERAPIES Intranasal midazolam Comorbidities: Episode Description: SEIZURE TYPE 1: Psychic aura -> Right leg then right head somatosensory -> Right versive -> Generalized tonic clonic seizure Onset: 14 years Description: Aura of paranoia and confusion, garbled speech, and tingling in the right foot which spread to the right leg and the then right side of the head for about 45 seconds. He usually signaled the seizure vocally, saying Mom or Dad or grunting. He then lay down on the floor on his side in a position, and as he blacked out his head jerked to the right with evolution to whole body stiffening and tremor with extension of the arms, fisting of the hands, grunting, labored breathing, and foaming at the mouth, without tongue bite or urine loss (video reviewed). Convulsions lasted 60 to 80 seconds, followed by headache and sleep. After medication was started, the tingling began on the right side of the head, without origin in the right foot and leg. In addition, he has also had a few seizures with the typical aura of paranoia and confusion, with garbled speech and no further evolution. All but one of his seizures have occurred while awake. Sleep deprivation is a trigger. Loss of awareness: Duration: Frequency: Last occurred: SEIZURE TYPE 2: Auditory distortion-> aphasia Onset: April 2022 Aura: yes Aura - Sensory: Abnormal sounds Description: Sounds will get muffled, he may have difficulty understanding speech. Speech output is impaired and he may frequently do word substitution. He gives an example where instead of seeing sidewalk, he may say a scooter. These typically last 5 to 10 seconds however speech recovery can take 10 to 15 minutes after the episode. Patient is able to alert his family members by pointing to his ears. Loss of awareness: Duration: Frequency: Last occurred: Patient Entered Data: EPILEPSY SCORE 03/26/2022 3:21 PM PHQ-9 SCORE 6 [Mild Depression] ENRIQUE 2 SCORE - ENRIQUE 7 SCORE - QOLIE-10 SCORE (0=worst; 100=best QoL - higher scores represent better function) - LSSS SCORE (0- no seizures 100- most severe possible seizures) - C-SSRS SCREEN - On average, how many hours of sleep do you get in a 24-hour period? - PROMIS Sleep Disturbance T-SCORE - Have you been diagnosed with Sleep Apnea? 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 MILD ASYMMETRY INVOLVING THE LEFT MID CINGULATE. Other caregivers: Primary Care Provider: Iva Car MD Current Outpatient Medications Medication Sig cloBAZam (ONFI) 10 mg tab tablet Take (2) tablets by mouth twice daily (= 40 mg/d) lacosamide (VIMPAT) 200 mg Take 2 tablets by mouth every morning AND 3 tablets daily at bedtime. midazolam (NAYZILAM) 5 mg/spray (0.1 mL) nasal spray Give 5 mg (0.1 ml) as a single dose in ONE nostril for seizure cluster or prolonged seizure lasting > 3 minutes. The same dose may be repeated in 10 minutes in the OTHER nostril if the seizure continues after the first dose. mens gummy multivitamin (CENTRUM) chewable tablet Take 1 tablet by mouth once daily. No current facility-administered medications for this visit. 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 -Vocation: -Education: -Cigarette, alcohol, substance use: -Functional status: -Patient driving? Review of Systems All other systems reviewed and are negative. VITAL SIGNS: BP 126/71 Pulse (!) 47 Resp 16 Ht 188 cm (6' 2) Wt 81.6 kg (180 lb) BMI 23.11 kg/m General Examination: He is accompanied dad. General: Awake, alert, interactive, no acute distress, good nutritional status, normal development, well-kept Neurological Exam Mental Status Alert, fully oriented, attentive, with normal cognition, memory, speech and affect. Cranial Nerves Face symmetric. Hearing intact with conversational speech. Motor Examination and Coordination Motor examination with normal bulk. Normal coordination. No adventitious movements or significant tremor. Gait Casual gait normal. IMPRESSION: Blaise has epilepsy since 14 years of age. Initial seizure semiology indicated onset near the leg somatosensory region in the left hemisphere. In [facility], MRI was normal and EEG was interpreted to showed left temporo-parietal sharp waves, although samples were normal to our review. MRI was normal. Seizures persisted on clobazam and brivaracetam. Oxcarbazepine was stopped after 1 week because of neutropenia, hyponatremia, and rash. Lacosamide was started in 02/2020, at 15 years of age, with no further right somatosensory then generalized tonic clonic seizures since then. He had 2 years of seizure freedom until April 2022. Between April 2022 to November 2022 patient had episodes of auras of auditory distortion, word finding difficulty (word substitution-parents may understand based on the context-for example they say scooter instead of a sidewalk). Based on semiology, seizure network likely involves primary somatosensory cortex, posterior perisylvian region (with new auditory distortion symptoms), temporal pole/amygdala (psychic aura/paranoia). In 10/2022, lacosamide was increased from 800 to 1000 mg/d (with clobazam), with no further episodes of brain fog since then. It was elected to make no change for now. Future untried options include lamotrigine, topiramate, zonisamide, cenobamate, and felbamate. 04/01/2023 : Doing well since November 2022 without any auras or seizures. Continues to be on high-dose Vimpat 400-600 mg, Onfi 20 mg twice daily. We discussed further options if he continues to have debilitating auras or seizures-trial of more AEDs while we start planning for EMU evaluation with additional presurgical testing including ictal SPECT, TAWNY, repeating MRI (possibly 7T). 11/27/2023: No new seizures. No changes made today. PLAN: Continue Vimpat 400-600, Onfi 20 mg twice daily We will check ASM levels. Future options: Trial of zonisamide, Xcopri, Fycompa, Depakote. Presurgical evaluation Data reviewed as above including: electronic medical record Education Seizure precautions - No driving in the [facility] until seizure free for 6 months. Please check with local state authorities for state specific driving regulations. - No operating heavy machines - No swimming without supervision or bathing in a bathtub due to risk of drowning in the event of a seizure. Patient may shower. - Avoid unsafe heights, including ladders, due to risk of fall-related injury in the event of a seizure. - Seizure precipitating factors discussed including not taking seizure medications as prescribed, stress, excessive caffeine intake, energy drinks, alcohol, sleep deprivation or any identifiable seizure precipitating factor. I discussed the risks, benefits and alternatives of the medical plan with the patient. Questions were answered. The patient agreed with the plan as discussed. FOLLOW-UP: Return in about 1 year (around 11/26/2024). I spent a total of 20 minutes on the date of the service which included: [id number] patient care preparing to see the patient completing clinical documentation obtaining and/or reviewing separately obtained history performing a medically appropriate examination counseling and educating the patient/family/caregiver ordering medications, tests, or procedures Marlon Correa MD cc: Primary Care Physician: Iva Car MD [id number] [place] [address] Patient: Mr. Estrella Carroll [address] [place] [address] documented in this encounter [facility] 11-27-2023 Instructions Marlon Correa MD - 11/27/2023 10:37 AM EDT Summary of the things we discussed today: Continue Vimpat and Onfi unchanged. We will check a blood level of your seizure medications. Please have your blood drawn before you take your morning dose of seizure medications or in the evening ( at least 8 hrs after you take your medications). Please call my office if you have more seizures or with any seizure related concerns. Seizure precautions - No driving in the state [place] [facility] until seizure free for 6 months. Please check with local state authorities for state specific driving regulations. - No operating heavy machines - No swimming without supervision or bathing in a bathtub due to risk of drowning in the event of a seizure. Patient may shower. - Avoid unsafe heights, including ladders, due to risk of fall-related injury in the event of a seizure. - Seizure precipitating factors discussed including not taking seizure medications as prescribed, stress, excessive caffeine intake, energy drinks, alcohol, sleep deprivation or any identifiable seizure precipitating factor. Marlon Correa MD Associate Staff, Epilepsy [facility] November 27, 2023 Office phone: [phone] documented in this encounter [facility] 11-22-2023 Telephone encounter Note Informed the patient's mother of recommendations. The patient took ASM's at 3:10, will take PM dose late tonight as possible. Lata Rose RN [facility] 11-22-2023 Miscellaneous Notes Informed the patient's mother of recommendations. The patient took ASM's at 3:10, will take PM dose late tonight as possible. Lata Rose RN Yes would take right away and then pm doses late tonight as possible LCM 400/600 CLB Lata Rose RN Medication Concern Person Calling Ellen Carroll -fux cell Name of medication vimpat, onfi Concern with medication forgot to take morning dose today. Should he take morning dose now? Patient of Dr. correa documented in this encounter [facility] 11-22-2023 Telephone encounter Note Yes would take right away and then pm doses late tonight as possible [facility] 11-22-2023 Telephone encounter Note LCM 400/600 CLB Lata Rose, RN [facility] 11-22-2023 Telephone encounter Note Medication Concern Person Calling Ellen Carroll -mny cell Name of medication vimpat, onfi Concern with medication forgot to take morning dose today. Should he take morning dose now? Patient of Dr. correa [facility] 09-09-2023 Note HNO ID: [id number] Author: JAIME TORRES APRN.[employer]ENT[employer]IVE Service: ? Author Type: Nurse Practitioner Type: Progress Notes Filed: 09/09/2023 09:16 Note Text: This note was created using [employer]. Subjective Estrella Carroll is a 18 year old male. HPI For the last three days pt has had congestion and a sore throat. Throat seems more painful and dry today. Presents today worried about possible strep throat Review of Systems Constitutional: Negative for fatigue and fever. HENT: Positive for congestion and sore throat. Respiratory: Positive for cough. Objective BP 112/64 Pulse 65 Temp 36.4 ?C (97.6 ?F) (Tympanic) Resp 16 Wt 83.5 kg (184 lb 1.4 oz) SpO2 100% BMI 23.64 kg/m? Physical Exam Vitals and nursing note reviewed. Constitutional: General: He is not in acute distress. Appearance: Normal appearance. He is not ill-appearing. HENT: Head: Normocephalic. Mouth/Throat: Mouth: Mucous membranes are moist. Pharynx: No oropharyngeal exudate or posterior oropharyngeal erythema. Eyes: Conjunctiva/sclera: Conjunctivae normal. Cardiovascular: Rate and Rhythm: Normal rate and regular rhythm. Pulmonary: Effort: Pulmonary effort is normal. Breath sounds: Normal breath sounds. Musculoskeletal: General: Normal range of motion. Cervical back: Normal range of motion. Skin: General: Skin is warm and dry. Neurological: General: No focal deficit present. Mental Status: He is alert. Psychiatric: Mood and Affect: Mood normal. Behavior: Behavior normal. Assessment and Plan ASSESSMENT/PLAN: 1. Sore throat - ICD9: 462, ICD10: J02.9 - suspect viral - Rapid Strep negative in the office today - Discussed supportive care treatment with fluids, rest and analgesia. - The patient may also use OTC decongestants prn, OTC cough and cold meds as needed, and warm salt water gargles, throat lozenges and/or OTC throat spray as needed. - Contagious dz precautions discussed- including considered contagious until on antibiotics for 24 hours - The patient should follow up in one week if symptoms persist or worsen - Call back if drooling, increased temperature, symptoms of dehydration and/or still sick in one week -Patient will be swabbed for COVID to rule out any further causes of his symptoms - STREP A MOLECULAR (POC) - COVID NAAT, UPPER RESPIRATORY, ROUTINE Jaime Torres APRN.[facility] 09-09-2023 History of Present illness Narrative This note was created using [employer]. Subjective Estrella Carroll is a 18 year old male. HPI For the last three days pt has had congestion and a sore throat. Throat seems more painful and dry today. Presents today worried about possible strep throat Review of Systems Constitutional: Negative for fatigue and fever. HENT: Positive for congestion and sore throat. Respiratory: Positive for cough. Objective BP 112/64 Pulse 65 Temp 36.4 C (97.6 F) (Tympanic) Resp 16 Wt 83.5 kg (184 lb 1.4 oz) SpO2 100% BMI 23.64 kg/m Physical Exam Vitals and nursing note reviewed. Constitutional: General: He is not in acute distress. Appearance: Normal appearance. He is not ill-appearing. HENT: Head: Normocephalic. Mouth/Throat: Mouth: Mucous membranes are moist. Pharynx: No oropharyngeal exudate or posterior oropharyngeal erythema. Eyes: Conjunctiva/sclera: Conjunctivae normal. Cardiovascular: Rate and Rhythm: Normal rate and regular rhythm. Pulmonary: Effort: Pulmonary effort is normal. Breath sounds: Normal breath sounds. Musculoskeletal: General: Normal range of motion. Cervical back: Normal range of motion. Skin: General: Skin is warm and dry. Neurological: General: No focal deficit present. Mental Status: He is alert. Psychiatric: Mood and Affect: Mood normal. Behavior: Behavior normal. Assessment and Plan ASSESSMENT/PLAN: 1. Sore throat - ICD9: 462, ICD10: J02.9 - suspect viral - Rapid Strep negative in the office today - Discussed supportive care treatment with fluids, rest and analgesia. - The patient may also use OTC decongestants prn, OTC cough and cold meds as needed, and warm salt water gargles, throat lozenges and/or OTC throat spray as needed. - Contagious dz precautions discussed- including considered contagious until on antibiotics for 24 hours - The patient should follow up in one week if symptoms persist or worsen - Call back if drooling, increased temperature, symptoms of dehydration and/or still sick in one week -Patient will be swabbed for COVID to rule out any further causes of his symptoms - STREP A MOLECULAR (POC) - COVID NAAT, UPPER RESPIRATORY, ROUTINE Jaime Torres APRN.CNP documented in this encounter [facility] 07-31-2023 Telephone encounter Note The following approved medication requests have been transmitted electronically. Requested Prescriptions Signed Prescriptions Disp Refills cloBAZam (ONFI) 10 mg tab tablet 360 tablet 1 Sig: Take (2) tablets by mouth twice daily (= 40 mg/d) Authorizing Provider: SHAYY MERINO APRN.CNP [facility] 07-31-2023 Miscellaneous Notes The following approved medication requests have been transmitted electronically. Requested Prescriptions Signed Prescriptions Disp Refills cloBAZam (ONFI) 10 mg tab tablet 360 tablet 1 Sig: Take (2) tablets by mouth twice daily (= 40 mg/d) Authorizing Provider: SHAYY MERINO APRN.CNP Prescription Refill: NEW PHARMACY REQUEST; PLEASE RE-APPROVE. Requested by: patient Please E-Scribe Caller Contact Number: Pharmacy Name: [facility] Pharmacy Number: [phone] Generic/ brand: 30 or 90 day supply requested: 90 Last appointment: 04/01/23 Next Appointment: 10/04/[address] Correa documented in this encounter [facility] 07-30-2023 Telephone encounter Note Prescription Refill: NEW PHARMACY REQUEST; PLEASE RE-APPROVE. Requested by: patient Please E-Scribe Caller Contact Number: Pharmacy Name: [facility] Pharmacy Number: [phone] Generic/ brand: 30 or 90 day supply requested: 90 Last appointment: 04/01/23 Next Appointment: 10/04/[address] Correa [facility] 07-11-2023 Telephone encounter Note Informed the patient no need to take another dose of ASM's. Per MICHELLE, he can take an extra 10 mg of CLB in the afternoon. Lata Rose RN [facility] 07-11-2023 Miscellaneous Notes Informed the patient no need to take another dose of ASM's. Per MICHELLE, he can take an extra 10 mg of CLB in the afternoon. Lata Rose RN Medication Concern Person Calling Estrella Carroll Name of medication Vimpt and Onfi Concern with medication Patient took morning dose at 7:15 and vomited at 8:15. Should dose be repeated? Patient of Dr. Correa documented in this encounter [facility] 07-11-2023 Telephone encounter Note Medication Concern Person Calling Estrella Carroll Name of medication Vimpt and Onfi Concern with medication Patient took morning dose at 7:15 and vomited at 8:15. Should dose be repeated? Patient of Dr. Correa [facility] 06-03-2023 Telephone encounter Note BMV form completed via [employer] ([employer]), sent to Dr. Correa for review and signature. Copies to Tepha. Form signed. Lata Rose RN [facility] 06-03-2023 Miscellaneous Notes BMV form completed via [employer] ([employer]), sent to Dr. Correa for review and signature. Copies to [employer]. Form signed. Lata Rose RN Seizures started - 4 years Last seizure - 11/2022 ASM levels - LCM 12/2022, CLB 08/2022 Appointment - 04/01/23 Lata Rose RN documented in this encounter [facility] 05-31-2023 Telephone encounter Note Seizures started - 4 years Last seizure - 11/2022 ASM levels - LCM 12/2022, CLB 08/2022 Appointment - 04/01/23 Lata Rose RN [facility] 04-28-2023 Miscellaneous Notes Patient given results and verbalized understanding of instructions given. Erendira Robles MA Patient given results and verbalized understanding of instructions given. Erendira Robles MA Please call patient and let him know he tested positive for influenza A. Tamiflu has been sent to his pharmacy. Please start this today documented in this encounter [facility] 04-27-2023 History of Present illness Narrative Patient presents with: Sore Throat: fever x last night HPI: Had fever 101 last night. Positive symptoms: slight Sore throat, Fever, exposure to influenza A, Negative symptoms: Cough, Nasal Congestion, Rhinorrhea, Vomiting, Diarrhea, OTC: Ibuprofen MEDICATIONS: Current Outpatient Medications Medication Sig lacosamide (VIMPAT) 200 mg Take 2 tablets by mouth every morning AND 3 tablets daily at bedtime. cloBAZam (ONFI) 10 mg tab tablet Take (2) tablets by mouth twice daily (= 40 mg/d) midazolam (NAYZILAM) 5 mg/spray (0.1 mL) nasal spray Give 5 mg (0.1 ml) as a single dose in ONE nostril for seizure cluster or prolonged seizure lasting > 3 minutes. The same dose may be repeated in 10 minutes in the OTHER nostril if the seizure continues after the first dose. mens gummy multivitamin (CENTRUM) chewable tablet Take 1 tablet by mouth once daily. No current facility-administered medications for this visit. ALLERGIES: ALLERGIES Allergen Reactions Codeine Other: See Comments, Unknown Aversion Levetiracetam Rash Oxcarbazepine Other: See Comments, Rash Neutropenia, hyponatremia Seasonal Allergies Cough Shellfish Containin* Unknown Pre caution dad is allergic VITALS: BP 128/84 Pulse 88 Temp 36.7 C (98.1 F) Resp 16 Wt 85.3 kg (188 lb 0.8 oz) SpO2 98% BMI 24.14 kg/m PHYSICAL EXAM: GEN: Pleasant, in no acute distress. Accompanied by his father HEENT: PERRL, EOMI, conjunctiva clear Ears: canals clear. TMs without erythema, bulge, or effusion Sinuses: non-tender frontal sinus, non-tender maxillary sinuses Throat: moist mucous membranes, mild erythema, no exudate Neck: supple, no thyromegaly, borderline anterior lymphadenopathy HEART: regular rate and rhythm, no murmurs LUNGS: clear to auscultation, no wheezes or crackles, no increased WOB ASSESSMENT/PLAN: 1. Sore throat - ICD9: 462, ICD10: J02.9 (primary diagnosis) 2. Exposure to influenza - ICD9: V01.79, ICD10: Z20.828 - STREP A MOLECULAR (POC) - negative. - COVID & INFLUENZA A/B NAAT, ROUTINE - can prescribe tamiflu if positive. Masoud Cartagena MD documented in this encounter [facility] 04-01-2023 Instructions Marlon Correa MD - 04/01/2023 11:03 AM EST Summary of the things we discussed today: Continue Vimpat, Clobazam at the same doses. If you continue with seizures/disabling Auras, please call my office. With continued seizures, we will get additional testing for medication refractory seizures. This would include video-EEG monitoring, SPECT scan, TAWNY scan and possibly repeating a higher resolution MRI. Seizure precautions - No driving in the [place] [facility] until seizure free for 6 months. Please check with local state authorities for state specific driving regulations. - No operating heavy machines - No swimming without supervision or bathing in a bathtub due to risk of drowning in the event of a seizure. Patient may shower. - Avoid unsafe heights, including ladders, due to risk of fall-related injury in the event of a seizure. - Seizure precipitating factors discussed including not taking seizure medications as prescribed, stress, excessive caffeine intake, energy drinks, alcohol, sleep deprivation or any identifiable seizure precipitating factor. Marlon Correa MD Associate Staff, Epilepsy [facility] April 01, 2023 Office phone: [phone] documented in this encounter [facility] 04-01-2023 Note HNO ID: [id number] Author: MARLON CORREA MD Service: ? Author Type: Physician Type: Progress Notes Filed: 04/01/2023 16:23 Note Text: [facility] Patient Name: Estrella Carroll Date of : 2005 Referring Provider Iva Car MD Referring Team, Pediatrics [phone] ESTABLISHED EPILEPSY CLINIC NOTE 04/01/2023 10:00 AM Reason for Visit: New Patient (Transfer of care) and Epilepsy Clinical Summary: Mr. Carroll is a 18 year old right-handed male seen in [facility]. At today's visit, the patient is accompanied by: Both parents Classification Summary HISTORY OF PRESENT ILLNESS Handedness: right-handed Age of onset: Seizure History and Evolution EPILEPSY CLASSIFICATION: Focal epilepsy (left hemisphere) SEIZURES: Right leg somatosensory -> Right versive -> Generalized tonic clonic seizures MRI: Normal ([facility]) ETIOLOGY: Unknown EEG: Left temporo-parietal sharp waves ([facility] - by report - not confirmed upon review of selected samples) ASSOCIATED CONDITIONS: Anxiety, ADHD Weight by report: 89 kg Blaise had onset of seizures at 14 years of age. On 03/20/2019, Blaise had onset of seizures with a cluster of 3 seizures in about 12 hours. The first involved confusion and garbled speech, and the next 2 evolved to generalized tonic clonic convulsion. In retrospect, about a week earlier, he had a missed seizure in his bedroom - he felt the paranoia that he later realized was his aura, walked to close the door, blacked out, and woke up in his bed with a black eye. On 03/20/2019, Blaise was admitted to [facility] where EEG was interpreted to show left temporo-parietal sharp waves {not appreciated on the samples sent for review] and MRI was normal. He was started on oxcarbazepine. Subsequent lab work showed hyponatremia and neutropenia. In late 03/2019, a transition to levetiracetam was initiated. Six days after starting levetiracetam, and about 1 month after starting oxcarbazepine, he developed a whole body rash. Both drugs were stopped, and he was started on clobazam. Since then, seizures have remained a concern. Features included an aura of paranoia and confusion, garbled speech, and tingling in the right foot which spread to the right leg and the then right side of the head for about 45 seconds. He usually signaled the seizure vocally, saying Mom or Dad or grunting. He then lay down on the floor on his side in a position, and as he blacked out his head jerked to the right with evolution to whole body stiffening and tremor with extension of the arms, fisting of the hands, grunting, labored breathing, and foaming at the mouth, without tongue bite or urine loss (video reviewed). Convulsions lasted 60 to 80 seconds, followed by headache and sleep. After medication was started, the tingling began on the right side of the head, without origin in the right foot and leg. In addition, he has also had a few seizures with the typical aura of paranoia and confusion, with garbled speech and no further evolution. All but one of his seizures have occurred while awake. Sleep deprivation is a trigger. Since onset of seizures in 03/2019, Felix has had the following events. - 04/2019 - 1 seizure on clobazam 20 mg/d - 04/2019 to 01/2020 - episodes of brain fog for a few seconds or minutes, with no outward sign, recurring once every other day - exact nature unclear [plus a panic attack in 07/2019, with normal bedside EEG] - 11/2019 to 02/2020 - 1 to 3 seizure per month, all but one with evolution to generalized tonic clonic convulsion, on brivaracetam and clobazam. Most recent seizure (02/17/2020) occurred on brivaracetam 200 mg/d and clobazam 40 mg/d. Blaise had no seizures while on oxcarbazepine for about a month, but with neutropenia, hyponatremia, and rash (6 days after addition of levetiracetam). He was on clobazam alone until 08/2020 then breviracetam alone for about 6 weeks, and then clobazam was added back in 11/2019 and increased to 40 mg/d by 02/2020. Throughout this period, seizures persisted every 2 to 3 weeks. After a seizure on 02/17/2020, Blaise was started on lacosamide 400 mg/d (with clobazam and brivaracetam), with cessation of seizures. SEIZURE OVERVIEW Lacosamide was started after a right sensorimotor -> generalized tonic clonic seizure on 02/17/2020. He has had no further seizures of this type since then. Over time Blaise reported brain fog episodes which have recurred over time since at least early 2019. I just kind of zone out and can't understand words that people are saying for about 8 seconds. Witnesses do not notice anything. Frequency is sporadic - 1 to 2 per week, then none for 2 or 3 weeks. - 05/05/2022 - One seizure with a rising sensation and brain fog, during which he heard incorrectly - some things came through, others not - and he heard things that aren't (more content not included)... [facility] 04-01-2023 History of Present illness Narrative [facility] Patient Name: Estrella Carroll Date of : 2005 Referring Provider Iva Car MD Referring Team, Pediatrics [phone] ESTABLISHED EPILEPSY CLINIC NOTE 04/01/2023 10:00 AM Reason for Visit: New Patient (Transfer of care) and Epilepsy Clinical Summary: Mr. Carroll is a 18 year old right-handed male seen in [facility]psy [facility]. At today's visit, the patient is accompanied by: Both parents Classification Summary HISTORY OF PRESENT ILLNESS Handedness: right-handed Age of onset: Seizure History and Evolution EPILEPSY CLASSIFICATION: Focal epilepsy (left hemisphere) SEIZURES: Right leg somatosensory -> Right versive -> Generalized tonic clonic seizures MRI: Normal ([facility]) ETIOLOGY: Unknown EEG: Left temporo-parietal sharp waves ([facility] - by report - not confirmed upon review of selected samples) ASSOCIATED CONDITIONS: Anxiety, ADHD Weight by report: 89 kg Blaise had onset of seizures at 14 years of age. On 03/20/2019, Blaise had onset of seizures with a cluster of 3 seizures in about 12 hours. The first involved confusion and garbled speech, and the next 2 evolved to generalized tonic clonic convulsion. In retrospect, about a week earlier, he had a missed seizure in his bedroom - he felt the paranoia that he later realized was his aura, walked to close the door, blacked out, and woke up in his bed with a black eye. On 03/20/2019, Blaise was admitted to [facility] where EEG was interpreted to show left temporo-parietal sharp waves {not appreciated on the samples sent for review] and MRI was normal. He was started on oxcarbazepine. Subsequent lab work showed hyponatremia and neutropenia. In late 03/2019, a transition to levetiracetam was initiated. Six days after starting levetiracetam, and about 1 month after starting oxcarbazepine, he developed a whole body rash. Both drugs were stopped, and he was started on clobazam. Since then, seizures have remained a concern. Features included an aura of paranoia and confusion, garbled speech, and tingling in the right foot which spread to the right leg and the then right side of the head for about 45 seconds. He usually signaled the seizure vocally, saying Mom or Dad or grunting. He then lay down on the floor on his side in a position, and as he blacked out his head jerked to the right with evolution to whole body stiffening and tremor with extension of the arms, fisting of the hands, grunting, labored breathing, and foaming at the mouth, without tongue bite or urine loss (video reviewed). Convulsions lasted 60 to 80 seconds, followed by headache and sleep. After medication was started, the tingling began on the right side of the head, without origin in the right foot and leg. In addition, he has also had a few seizures with the typical aura of paranoia and confusion, with garbled speech and no further evolution. All but one of his seizures have occurred while awake. Sleep deprivation is a trigger. Since onset of seizures in 03/2019, Felix has had the following events. - 04/2019 - 1 seizure on clobazam 20 mg/d - 04/2019 to 01/2020 - episodes of brain fog for a few seconds or minutes, with no outward sign, recurring once every other day - exact nature unclear [plus a panic attack in 07/2019, with normal bedside EEG] - 11/2019 to 02/2020 - 1 to 3 seizure per month, all but one with evolution to generalized tonic clonic convulsion, on brivaracetam and clobazam. Most recent seizure (02/17/2020) occurred on brivaracetam 200 mg/d and clobazam 40 mg/d. Blaise had no seizures while on oxcarbazepine for about a month, but with neutropenia, hyponatremia, and rash (6 days after addition of levetiracetam). He was on clobazam alone until 08/2020 then breviracetam alone for about 6 weeks, and then clobazam was added back in 11/2019 and increased to 40 mg/d by 02/2020. Throughout this period, seizures persisted every 2 to 3 weeks. After a seizure on 02/17/2020, Blaise was started on lacosamide 400 mg/d (with clobazam and brivaracetam), with cessation of seizures. SEIZURE OVERVIEW Lacosamide was started after a right sensorimotor -> generalized tonic clonic seizure on 02/17/2020. He has had no further seizures of this type since then. Over time Blaise reported brain fog episodes which have recurred over time since at least early 2019. I just kind of zone out and can't understand words that people are saying for about 8 seconds. Witnesses do not notice anything. Frequency is sporadic - 1 to 2 per week, then none for 2 or 3 weeks. - 05/05/2022 - One seizure with a rising sensation and brain fog, during which he heard incorrectly - some things came through, others not - and he heard things that aren't there. He remained able to walk and talk during the episode. The entire seizure lasted 2 or 3 minutes until full recovery. Occurred on lacosamide 600 mg/d with level 5.9 mg/l in 02/2021 (usual range 2 -19 mg/l) and clobazam 40 mg/d, in the setting of sleep deprivation (playing video games at night). - 08/23/2022 - One seizure which felt the same as the one in 04/2022. His father heard an odd noise while Blaise was taking a shower, and found Blaise sitting on the steps with his head turned to the side, making some coughing / guttural noises. His father placed his hand on Blaise's knee and the noises stopped and he responded immediately. Blaise remembered the entire event and reported that he had some brain fog and a rising sensation with an inability to hear correctly while in the bathroom, and came out and sat on the steps. Occurred on lacosamide 700 mg/d and clobazam 40 mg/d with good adherence. - 09/27/2022 - Another episode of brain fog - 10/12/2022 - Similar to previous events - he sat quietly, appeared to be 'there', could sometimes talk, at times nonsensically, and did not hear us well, but was not in full seizure mode, for about 60 seconds. Occurred on lacosamide 800 mg/d and clobazam 40 mg/d - 10/24/2022 - Occurred at work. Estrella described that he had one of his episodes of brain fog - he felt it coming on, sat down in some boxes and gradually recovered over several minutes (co-workers stayed with him). Occurred on lacosamide 800 mg/d and clobazam 40 mg/d. Since at least early 2019, Blaise has had sporadic episodes of brain fog. I just kind of zone out and can't understand words that people are saying for about 8 seconds. Witnesses do not notice anything. Frequency is sporadic - 1 to 2 per week, then none for 2 or 3 weeks. In 04/2022 and 08/2022, the brain fog further evolved to include what an inability to hear correctly, and hearing things that weren't there. It is possible that the brain fog episodes are epileptic seizures. Episodes have persisted on lacosamide up to 800 mg/d and clobazam 40 mg/d. IN SUMMARY Blaise has epilepsy since 14 years of age. Seizure semiology indicated onset near the leg somatosensory region in the left hemisphere. In [place], MRI was normal and EEG was interpreted to showed left temporo-parietal sharp waves, although samples were normal to our review. MRI was normal. Seizures persisted on clobazam and brivaracetam. Oxcarbazepine was stopped after 1 week because of neutropenia, hyponatremia, and rash. Lacosamide was started in 02/2020, at 15 years of age, with no further right somatosensory then generalized tonic clonic seizures since then. He had 2 years of seizure freedom until April 2022. Between April 2022 to November 2022 patient had episodes of auras of auditory distortion, word finding difficulty (word substitution-parents may understand based on the context-for example they say scooter instead of a sidewalk) In 10/2022, lacosamide was increased from 800 to 1000 mg/d (with clobazam), with no further episodes of brain fog since then. It was elected to make no change for now. Future untried options include lamotrigine, topiramate, zonisamide, cenobamate, and felbamate. Interval Seizure History Since last visit with Dr. Eid in October 2022, patient had 1 or in November 2022. This is similar to his prior ROS consisting of auditory distortion followed by difficulty in speech output, he may do word substitution which the parents can understand based on the context of speech. No loss of consciousness/awareness or convulsions reported. He is tolerating the current dose of medications well which include Vimpat 400-600 mg, clobazam 20 mg twice daily. AED levels checked in 2022 shows elevated clobazam level but the metabolite levels are normal. Vimpat level is normal as well. Total # of Current Anti-seizure Medications: Side Effects to Current Anti-seizure Medications: Seizure Frequency at First Visit: Longest Seizure-free Interval: CURRENT OUTPATIENT ANTISEIZURE MEDICATIONS (as of the start of the encounter) cloBAZam (ONFI) 10 mg tab tablet (Taking) Take (2) tablets by mouth twice daily (= 40 mg/d) midazolam (NAYZILAM) 5 mg/spray (0.1 mL) nasal spray (Taking) Give 5 mg (0.1 ml) as a single dose in ONE nostril for seizure cluster or prolonged seizure lasting > 3 minutes. The same dose may be repeated in 10 minutes in the OTHER nostril if the seizure continues after the first dose. lacosamide (VIMPAT) 200 mg Take 2 tabs in am and 3 tabs in pm = 1000 mg/d Prior Anti-seizure Therapies: Trial Adequacy: Max Daily Dose Achieved: Side Effects: Effectiveness: Comments: Brivaracetam Clobazam Lacosamide Levetiracetam Rash after 6 days (with oxcarbazepine, started 1 month prior) Oxcarbazepine Rash after 1 month (with levetiracetam) - also hyponatremia and neutropenia on 1800 mg/d, with no seizures PRIOR RESCUE THERAPIES Intranasal midazolam Comorbidities: Episode Description: SEIZURE TYPE 1: Psychic aura -> Right leg then right head somatosensory -> Right versive -> Generalized tonic clonic seizure Onset: 14 years Description: Aura of paranoia and confusion, garbled speech, and tingling in the right foot which spread to the right leg and the then right side of the head for about 45 seconds. He usually signaled the seizure vocally, saying Mom or Dad or grunting. He then lay down on the floor on his side in a position, and as he blacked out his head jerked to the right with evolution to whole body stiffening and tremor with extension of the arms, fisting of the hands, grunting, labored breathing, and foaming at the mouth, without tongue bite or urine loss (video reviewed). Convulsions lasted 60 to 80 seconds, followed by headache and sleep. After medication was started, the tingling began on the right side of the head, without origin in the right foot and leg. In addition, he has also had a few seizures with the typical aura of paranoia and confusion, with garbled speech and no further evolution. All but one of his seizures have occurred while awake. Sleep deprivation is a trigger. Loss of awareness: Duration: Frequency: Last occurred: SEIZURE TYPE 2: Auditory distortion-> aphasia Onset: April 2022 Aura: yes Aura - Sensory: Abnormal sounds Description: Sounds will get muffled, he may have difficulty understanding speech. Speech output is impaired and he may frequently do word substitution. He gives an example where instead of seeing sidewalk, he may say a scooter. These typically last 5 to 10 seconds however speech recovery can take 10 to 15 minutes after the episode. Patient is able to alert his family members by pointing to his ears. Loss of awareness: Duration: Frequency: Last occurred: November 2022 Patient Entered Data: EPILEPSY SCORE 03/26/2022 3:21 PM PHQ-9 SCORE 6 [Mild Depression] ENRIQUE 2 SCORE - ENRIQUE 7 SCORE - QOLIE-10 SCORE (0=worst; 100=best QoL - higher scores represent better function) - LSSS SCORE (0- no seizures 100- most severe possible seizures) - C-SSRS SCREEN - On average, how many hours of sleep do you get in a 24-hour period? - PROMIS Sleep Disturbance T-SCORE - Have you been diagnosed with Sleep Apnea? 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 MILD ASYMMETRY INVOLVING THE LEFT MID CINGULATE. Other caregivers: Primary Care Provider: Iva Car MD Current Outpatient Medications Medication Sig cloBAZam (ONFI) 10 mg tab tablet Take (2) tablets by mouth twice daily (= 40 mg/d) midazolam (NAYZILAM) 5 mg/spray (0.1 mL) nasal spray Give 5 mg (0.1 ml) as a single dose in ONE nostril for seizure cluster or prolonged seizure lasting > 3 minutes. The same dose may be repeated in 10 minutes in the OTHER nostril if the seizure continues after the first dose. mens gummy multivitamin (CENTRUM) chewable tablet Take 1 tablet by mouth once daily. lacosamide (VIMPAT) 200 mg Take 2 tablets by mouth every morning AND 3 tablets daily at bedtime. No current facility-administered medications for this visit. 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 -Vocation: -Education: -Cigarette, alcohol, substance use: -Functional status: -Patient driving? Review of Systems All other systems reviewed and are negative. VITAL SIGNS: BP 143/75 Pulse 60 Resp 16 Ht 188 cm (6' 2) Wt 86.2 kg (190 lb) BMI 24.39 kg/m General Examination: He is accompanied By his parents. General: Awake, alert, interactive, no acute distress, good nutritional status, normal development, well-kept Neurological Exam Mental Status Alert, fully oriented, attentive, with normal cognition, memory, speech and affect. Cranial Nerves Face symmetric. Hearing intact with conversational speech. Motor Examination and Coordination Motor examination with normal bulk. Normal coordination. No adventitious movements or significant tremor. Gait Casual gait normal. IMPRESSION: Blaise has epilepsy since 14 years of age. Initial seizure semiology indicated onset near the leg somatosensory region in the left hemisphere. In [place], MRI was normal and EEG was interpreted to showed left temporo-parietal sharp waves, although samples were normal to our review. MRI was normal. Seizures persisted on clobazam and brivaracetam. Oxcarbazepine was stopped after 1 week because of neutropenia, hyponatremia, and rash. Lacosamide was started in 02/2020, at 15 years of age, with no further right somatosensory then generalized tonic clonic seizures since then. He had 2 years of seizure freedom until April 2022. Between April 2022 to November 2022 patient had episodes of auras of auditory distortion, word finding difficulty (word substitution-parents may understand based on the context-for example they say scooter instead of a sidewalk). Based on semiology, seizure network likely involves primary somatosensory cortex, posterior perisylvian region (with new auditory distortion symptoms), temporal pole/amygdala (psychic aura/paranoia). In 10/2022, lacosamide was increased from 800 to 1000 mg/d (with clobazam), with no further episodes of brain fog since then. It was elected to make no change for now. Future untried options include lamotrigine, topiramate, zonisamide, cenobamate, and felbamate. 04/01/2023 : Doing well since November 2022 without any auras or seizures. Continues to be on high-dose Vimpat 400-600 mg, Onfi 20 mg twice daily. We discussed further options if he continues to have debilitating auras or seizures-trial of more AEDs while we start planning for EMU evaluation with additional presurgical testing including ictal SPECT, TAWNY, repeating MRI (possibly 7T). PLAN: Continue Vimpat 400-600, Onfi 20 mg twice daily Seizure precautions including no driving until seizure-free for 6 months Future options: Trial of zonisamide, Xcopri, Fycompa, Depakote Data reviewed as above including: electronic medical record, MRI images Education Seizure precautions - No driving in the [facility] until seizure free for 6 months. Please check with local state authorities for state specific driving regulations. - No operating heavy machines - No swimming without supervision or bathing in a bathtub due to risk of drowning in the event of a seizure. Patient may shower. - Avoid unsafe heights, including ladders, due to risk of fall-related injury in the event of a seizure. - Seizure precipitating factors discussed including not taking seizure medications as prescribed, stress, excessive caffeine intake, energy drinks, alcohol, sleep deprivation or any identifiable seizure precipitating factor. I discussed the risks, benefits and alternatives of the medical plan with the patient. Questions were answered. The patient agreed with the plan as discussed. FOLLOW-UP: Return in about 6 months (around 09/30/2023). I spent a total of 60 minutes on the date of the service which included: preparing to see the patient [id number] patient care completing clinical documentation obtaining and/or reviewing separately obtained history performing a medically appropriate examination counseling and educating the patient/family/caregiver ordering medications, tests, or procedures Marlon Correa MD cc: Primary Care Physician: Iva Car MD [id number] [facility] [id number] Referring: [facility] Referring Team Iva Car MD Referring Team, Pediatrics [phone] [address] [place] [address] Patient: Mr. Estrella Carroll [address] [place] [address] documented in this encounter [facility] 03-28-2023 History of Present illness Narrative PEDIATRIC SICK VISIT SUBJECTIVE: Estrella Carroll is a 18 year old accompanied by mother. Patient presents with: swollen right eyelid,: X 3 -4 day's scratchy throat History was obtained from: mother and patient For the past 3 to 4 days patient has noticed that his upper right eyelid was slightly swollen. He also had a lymph node on the right side that seemed enlarged but is smaller now. It is nontender and not red. He has had a slightly scratchy throat. ROS-no cough or nasal congestion. No eye drainage or visual changes. Does wear contacts. No fevers. 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 PAST MEDICAL HISTORY Diagnosis Date COVID-19 virus infection 03/11/2020 positive PCR test 03/11/20 COVID-19 virus infection 03/11/2020 positive PCR test 03/11/20 Epilepsy (HCC) Partial epilepsy with intractable epilepsy (HCC) 02/29/2020 PAST SURGICAL HISTORY Procedure Laterality Date CIRCUMCISION LAPAROSCOPIC APPENDECTOMY 02-21-14 OPEN TX CLAVICULAR FRACTURE INTERNAL FIXATION Allergies: ALLERGIES Allergen Reactions Codeine Other: See Comments, Unknown Aversion Levetiracetam Rash Oxcarbazepine Other: See Comments, Rash Neutropenia, hyponatremia Seasonal Allergies Cough Shellfish Containin* Unknown Pre caution dad is allergic Medications: cloBAZam (ONFI) 10 mg tab tablet Take (2) tablets by mouth twice daily (= 40 mg/d) lacosamide (VIMPAT) 200 mg Take 2 tabs in am and 3 tabs in pm = 1000 mg/d midazolam (NAYZILAM) 5 mg/spray (0.1 mL) nasal spray Give 5 mg (0.1 ml) as a single dose in ONE nostril for seizure cluster or prolonged seizure lasting > 3 minutes. The same dose may be repeated in 10 minutes in the OTHER nostril if the seizure continues after the first dose. mens gummy multivitamin (CENTRUM) chewable tablet Take 1 tablet by mouth once daily. OBJECTIVE: Pulse 64 Temp 36.4 C (97.6 F) (Temporal) Resp 14 Wt 87.1 kg (192 lb) BMI 24.83 kg/m General: alert and active in no apparent distress Eyes: conjunctiva clear, PERRL, EOMI, very slight swelling of upper right eyelid Ears: TMs translucent bilaterally, normal landmarks noted Nose: no rhinorrhea, no mucosal edema OP: no lesions, no erythema Neck: supple, bilateral palpable anterior cervical LN small nontender Lungs: clear to auscultation bilaterally, good air exchange, no retractions CVS: Normal rate, regular rhythm, no murmur Skin: No rashes, lesions or skin changes ASSESSMENT/PLAN: Swelling of right eyelid (primary encounter diagnosis) Acute upper respiratory infection -can take zyrtec ( this does not interfere with seizure neds) -Opth drops like zatidor if itching occurs - Discussed symptomatic care - Follow up if symptoms not improved Etta Loving MD documented in this encounter [facility] 01-18-2023 Miscellaneous Notes Reviewed and refilled the medications noted below. Requested Prescriptions Pending Prescriptions Disp Refills cloBAZam (ONFI) 10 mg tab tablet 360 tablet 1 Sig: Take (2) tablets by mouth twice daily (= 40 mg/d) Wade Rajput,BJeronimoS, M.D Pediatric Epileptologist [facility] [address] [address] Date of service: January 18, 2023 Estrella Carroll is a 17 year old. Last seen by Dr. Eid on 10/25/22 Now requesting clobazam refill sent to new pharmacy -Prescription appropriate, please file and document electronically. Thank you. -Routed to in absence of Dr. Stanton Ware LPN Prescription Refill: Requested by: pharmacy Please E-Scribe Caller Contact Number: [phone] (home) [facility] Number: [phone] Generic/ brand: generic 30 or 90 day supply requested: 90 Last appointment: 10/25/22 Next Appointment: none Patient of Dr. eid documented in this encounter [facility] 12-25-2022 Miscellaneous Notes Spoke with Blaise and advised per Dr. Eid. He verbalized understanding and agrees with plan. Di Bermudez RN Results are normal or unremarkable. Plan remains as discussed previously. Brigid Eid MD Neuro Peds Epilepsy Care Coordination Post-seizure/Medication Concerns/Side Effects Date of service : December 25, 2022 Estrella Carroll is a 17 year old. Last seen by Dr. Eid on 10/25/22. Now~Estrella reports that he feels normal - no side effects and he feels well. He also reports no seizure activity and has not felt brain fog since October. Current weight : 86 kg Current AEDs ( mg/kg/d) / recent drug level: Lacosamide 1000 mg/day (400 mg am - 600 mg pm) - level on 12/21/22 was 12.4 mg/L (range 2.2-19.8 mg/L); desmethyllacosamide was 3.8 mg/L (range <2.6 mg/L) Clobazam - level on 08/25/22 was 533 ng/mL (range 30-300 ng/mL); desmethylclobazam was 1050 ng/mL (range 300-3000 ng/mL) Recent changes/side effects: Update as above Main concern: Blaise reports feeling well, no seizures or brain fog and no side effects from medication Routed to Dr. Stanton Bermudez RN documented in this encounter [facility] 12-25-2022 History of Present illness Narrative Images from the original note were not included. [facility] Pediatric Epilepsy Date of Service: 12/25/2022 EPILEPSY CENTER - CLINICAL UPDATE Last Epilepsy Visit: 10/25/2022 AGE: Estrella is now 17 year old. HISTORY AND CLINICAL COURSE Handedness: right-handed Age at onset of symptoms / seizures: 14 years EPILEPSY CLASSIFICATION: Focal epilepsy (left hemisphere) SEIZURES: Right leg somatosensory -> Right versive -> Generalized tonic clonic seizures MRI: Normal ([facility]) ETIOLOGY: Unknown EEG: Left temporo-parietal sharp waves ([facility] - by report - not confirmed upon review of selected samples) ASSOCIATED CONDITIONS: Anxiety, ADHD Weight by report: 89 kg Blaise had onset of seizures at 14 years of age. On 03/20/2019, Blaise had onset of seizures with a cluster of 3 seizures in about 12 hours. The first involved confusion and garbled speech, and the next 2 evolved to generalized tonic clonic convulsion. In retrospect, about a week earlier, he had a missed seizure in his bedroom - he felt the paranoia that he later realized was his aura, walked to close the door, blacked out, and woke up in his bed with a black eye. On 03/20/2019, Blaise was admitted to [facility] where EEG was interpreted to show left temporo-parietal sharp waves {not appreciated on the samples sent for review] and MRI was normal. He was started on oxcarbazepine. Subsequent lab work showed hyponatremia and neutropenia. In late 03/2019, a transition to levetiracetam was initiated. Six days after starting levetiracetam, and about 1 month after starting oxcarbazepine, he developed a whole body rash. Both drugs were stopped, and he was started on clobazam. Since then, seizures have remained a concern. Features included an aura of paranoia and confusion, garbled speech, and tingling in the right foot which spread to the right leg and the then right side of the head for about 45 seconds. He usually signaled the seizure vocally, saying Mom or Dad or grunting. He then lay down on the floor on his side in a position, and as he blacked out his head jerked to the right with evolution to whole body stiffening and tremor with extension of the arms, fisting of the hands, grunting, labored breathing, and foaming at the mouth, without tongue bite or urine loss (video reviewed). Convulsions lasted 60 to 80 seconds, followed by headache and sleep. After medication was started, the tingling began on the right side of the head, without origin in the right foot and leg. In addition, he has also had a few seizures with the typical aura of paranoia and confusion, with garbled speech and no further evolution. All but one of his seizures have occurred while awake. Sleep deprivation is a trigger. Since onset of seizures in 03/2019, Felix has had the following events. - 04/2019 - 1 seizure on clobazam 20 mg/d - 04/2019 to 01/2020 - episodes of brain fog for a few seconds or minutes, with no outward sign, recurring once every other day - exact nature unclear [plus a panic attack in 07/2019, with normal bedside EEG] - 11/2019 to 02/2020 - 1 to 3 seizure per month, all but one with evolution to generalized tonic clonic convulsion, on brivaracetam and clobazam. Most recent seizure (02/17/2020) occurred on brivaracetam 200 mg/d and clobazam 40 mg/d. Blaise had no seizures while on oxcarbazepine for about a month, but with neutropenia, hyponatremia, and rash (6 days after addition of levetiracetam). He was on clobazam alone until 08/2020 then breviracetam alone for about 6 weeks, and then clobazam was added back in 11/2019 and increased to 40 mg/d by 02/2020. Throughout this period, seizures persisted every 2 to 3 weeks. After a seizure on 02/17/2020, Blaise was started on lacosamide 400 mg/d (with clobazam and brivaracetam), with cessation of seizures. SEIZURE OVERVIEW Lacosamide was started after a right sensorimotor -> generalized tonic clonic seizure on 02/17/2020. He has had no further seizures of this type since then. Over time Blaise reported brain fog episodes which have recurred over time since at least early 2019. I just kind of zone out and can't understand words that people are saying for about 8 seconds. Witnesses do not notice anything. Frequency is sporadic - 1 to 2 per week, then none for 2 or 3 weeks. - 05/05/2022 - One seizure with a rising sensation and brain fog, during which he heard incorrectly - some things came through, others not - and he heard things that aren't there. He remained able to walk and talk during the episode. The entire seizure lasted 2 or 3 minutes until full recovery. Occurred on lacosamide 600 mg/d with level 5.9 mg/l in 02/2021 (usual range 2 -19 mg/l) and clobazam 40 mg/d, in the setting of sleep deprivation (playing video games at night). - 08/23/2022 - One seizure which felt the same as the one in 04/2022. His father heard an odd noise while Blaise was taking a shower, and found Blaise sitting on the steps with his head turned to the side, making some coughing / guttural noises. His father placed his hand on Blaise's knee and the noises stopped and he responded immediately. Blaise remembered the entire event and reported that he had some brain fog and a rising sensation with an inability to hear correctly while in the bathroom, and came out and sat on the steps. Occurred on lacosamide 700 mg/d and clobazam 40 mg/d with good adherence. - 09/27/2022 - Another episode of brain fog - 10/12/2022 - Similar to previous events - he sat quietly, appeared to be 'there', could sometimes talk, at times nonsensically, and did not hear us well, but was not in full seizure mode, for about 60 seconds. Occurred on lacosamide 800 mg/d and clobazam 40 mg/d - 10/24/2022 - Occurred at work. Estrella described that he had one of his episodes of brain fog - he felt it coming on, sat down in some boxes and gradually recovered over several minutes (co-workers stayed with him). Occurred on lacosamide 800 mg/d and clobazam 40 mg/d. Since at least early 2019, Blaise has had sporadic episodes of brain fog. I just kind of zone out and can't understand words that people are saying for about 8 seconds. Witnesses do not notice anything. Frequency is sporadic - 1 to 2 per week, then none for 2 or 3 weeks. In 04/2022 and 08/2022, the brain fog further evolved to include what an inability to hear correctly, and hearing things that weren't there. It is possible that the brain fog episodes are epileptic seizures. Episodes have persisted on lacosamide up to 800 mg/d and clobazam 40 mg/d. IN SUMMARY Blaise has epilepsy since 14 years of age. Seizure semiology indicated onset near the leg somatosensory region in the left hemisphere. In [place], MRI was normal and EEG was interpreted to showed left temporo-parietal sharp waves, although samples were normal to our review. MRI was normal. Seizures persisted on clobazam and brivaracetam. Oxcarbazepine was stopped after 1 week because of neutropenia, hyponatremia, and rash. Lacosamide was started in 02/2020, at 15 years of age, with no further right somatosensory then generalized tonic clonic seizures since then. In 10/2022, lacosamide was increased from 800 to 1000 mg/d (with clobazam), with no further episodes of brain fog since then. It was elected to make no change for now. Future untried options include lamotrigine, topiramate, zonisamide, cenobamate, and felbamate. SEIZURE / EPISODE TYPE(S) Seizure Type 1 Psychic aura -> Right leg then right head somatosensory -> Right versive -> Generalized tonic clonic seizure Onset: 14 years Description: Aura of paranoia and confusion, garbled speech, and tingling in the right foot which spread to the right leg and the then right side of the head for about 45 seconds. He usually signaled the seizure vocally, saying Mom or Dad or grunting. He then lay down on the floor on his side in a position, and as he blacked out his head jerked to the right with evolution to whole body stiffening and tremor with extension of the arms, fisting of the hands, grunting, labored breathing, and foaming at the mouth, without tongue bite or urine loss (video reviewed). Convulsions lasted 60 to 80 seconds, followed by headache and sleep. After medication was started, the tingling began on the right side of the head, without origin in the right foot and leg. In addition, he has also had a few seizures with the typical aura of paranoia and confusion, with garbled speech and no further evolution. All but one of his seizures have occurred while awake. Sleep deprivation is a trigger. ASSOCIATED CONDITIONS, DEVELOPMENTAL HISTORY, AND SCHOOL Blaise experiences ADHD and anxiety, addressed with cognitive behavioral therapy - currently with therapy twice a month. Same and his parents deny and depression or suicidal ideation. His mother describes him as a joyful, optimistic person. Blaise earns A's and B's in regular classes in public school. He enjoys working out, playing soccer, and video games. ANTISEIZURE THERAPIES CURRENT ANTISEIZURE THERAPIES - Clobazam 40 mg/d - clobazam level 533 ng/ml (usual range 20 to 300 ng/ml), desmethylclobazam level 1050 ng/ml (usual range 300 to 3000 ng/ml) in 08/2022 - Lacosamide 1000 mg/d (400 / 600 mg/d) - lacosamide level 12.4mg/l (usual range 2 -19 mg/l), desmethyllacosamide level 3.8 mg/l (usual range < 2.6 mg/l) in 12/2022 ANTISEIZURE MEDICATION LEVELS (LAST 3) Antiseizure Med Levels Latest Ref Rng & Units 12/21/2022 08/25/2022 02/23/2021 CLOBAZAM 30 - 300 ng/mL - 533.0(H) - 10HYDROXYCARBAZEPINE 3.0 - 35.0 ug/mL - - - LACOSAMIDE 2.2 - 19.8 ug/mL 12.4 6.6 5.9 N-DESMETHYLCLOBAZAM 300 - 3000 ng/mL - 1050.0 - CURRENT RESCUE MEDICATIONS Intranasal midazolam PRIOR/CURRENT ANTISEIZURE THERAPIES Brivaracetam Clobazam Lacosamide Levetiracetam Rash after 6 days (with oxcarbazepine, started 1 month prior) Oxcarbazepine Rash after 1 month (with levetiracetam) - also hyponatremia and neutropenia on 1800 mg/d, with no seizures SELECTED UNTRIED OPTIONS - Cenobamate - Felbamate - Lamotrigine - Topiramate - Zonisamide ALLERGIES Allergen Reactions Codeine Other: See Comments, Unknown Aversion Levetiracetam Rash Oxcarbazepine Other: See Comments, Rash Neutropenia, hyponatremia Seasonal Allergies Cough Shellfish Containin* Unknown Pre caution dad is allergic PREVIOUS EPILEPSY EVALUATIONS: MRI 03/2019 Normal EEG 03/2019, 19 hours Spikes and sharp waves, regional left temporo-parietal [by report; no clear on the samples sent for review] EEG 07/2019, 30 hours Normal - no recorded seizures EPI-EXPANDED PANEL, 12/2019 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 MILD ASYMMETRY INVOLVING THE LEFT MID CINGULATE. IMPRESSION Blaise has epilepsy since 14 years of age. Seizure semiology indicated onset near the leg somatosensory region in the left hemisphere. In [place], MRI was normal and EEG was interpreted to showed left temporo-parietal sharp waves, although samples were normal to our review. MRI was normal. Seizures persisted on clobazam and brivaracetam. Oxcarbazepine was stopped after 1 week because of neutropenia, hyponatremia, and rash. Lacosamide was started in 02/2020, at 15 years of age, with no further right somatosensory then generalized tonic clonic seizures since then. In 10/2022, lacosamide was increased from 800 to 1000 mg/d (with clobazam), with no further episodes of brain fog since then. It was elected to make no change for now. Future untried options include lamotrigine, topiramate, zonisamide, cenobamate, and felbamate. RECOMMENDATIONS - Continue lacosamide 1000 mg/d and clobazam 40 mg/d - Family has requested Brand lacosamide - Future untried options include lamotrigine, topiramate, zonisamide, cenobamate, and felbamate. - Video EEG was discussed to clarify Blaise's epilepsy and further develop the plan of care if needed - he wishes to defer this for now. Ongoing virtual visits are recommended for this patient, as travel is not advisable due to the COVID-19 pandemic. Brigid Eid M.D. Professor of Neurology, [facility] Staff Physician, Epilepsy Center [facility] [place] [address] CC: [facility] [place] Referring Team Iva Car MD Referring Team, Pediatrics [phone] [id number] [facility] [id number] Iva Car [address] [place] [address] The family of: Estrella Carroll [address] [place] [address] documented in this encounter [facility] 11-21-2022 Miscellaneous Notes Spoke with pharmacy and clarified prescription. Di Bermudez RN Medication Concern Person Calling opt[employer] Name of medication lacosamide Concern with medication dosage clarification Patient of Dr. eid documented in this encounter [facility] 11-17-2022 Miscellaneous Notes Spoke with patient's mother Ellen who reports difficulty obtaining 90-day supply from [facility]. Requesting that RX be sent to [id number] The following prescriptions have been called to [facility] pharmacy 11/17/2022 at 6:38 PM by Trey Butts PA-C. I spoke with to the pharmacist in the pharmacy. Requested Prescriptions Signed Prescriptions Disp Refills cloBAZam (ONFI) 10 mg tab tablet 360 tablet 1 Sig: Take (2) tablets by mouth twice daily (= 40 mg/d) Authorizing Provider: TREY BUTTS documented in this encounter [facility] 11-16-2022 Miscellaneous Notes The following approved medication requests have been transmitted electronically. Requested Prescriptions Pending Prescriptions Disp Refills cloBAZam (ONFI) 10 mg tab tablet 360 tablet 1 Sig: Take (2) tablets by mouth twice daily (= 40 mg/d) Brigid Eid MD Prescription needs to go to new pharmacy. -Prescription appropriate, please file and document electronically. Thank you. Routed to Dr. Stanton Bermudez RN Prescription Refill: NEW PHARMACY REQUEST; PLEASE RE-APPROVE. Requested by: parent Please E-Scribe Caller Contact Number: Pharmacy Name: [facility] Pharmacy Number: [id number] Generic/ brand: 30 or 90 day supply requested: 90 Last appointment: 10/25/22 Next Appointment: none Patient of Dr. Eid documented in this encounter [facility] 11-12-2022 Miscellaneous Notes The following approved medication requests have been transmitted electronically. Requested Prescriptions Pending Prescriptions Disp Refills cloBAZam (ONFI) 10 mg tab tablet 360 tablet 1 Sig: Take (2) tablets by mouth twice daily (= 40 mg/d) Brigid Eid MD Date of service: November 12, 2022 Estrella Carroll is a 17 year old. Last seen by Dr. Eid on 10/25/22 Now requesting clobazam refill -Prescription appropriate, please file and document electronically. Thank you. -Routed to Dr. Stanton Bermudez, RN documented in this encounter [facility] 10-25-2022 Instructions Brigid Eid MD - 10/25/2022 10:00 AM EDT - Explore higher doses of lacosamide as tolerated (with clobazam 40 mg/d) Lacosamide (Vimpat) 200 mg tabs, now taking 2 tabs twice daily = 800 mg/d 2 tabs in am and 3 tabs in pm = 1000 mg/d - Check lacosamide level in 1 month - Future untried options include lamotrigine, topiramate, zonisamide, cenobamate, and felbamate. - Video EEG was discussed to clarify Blaise's epilepsy and further develop the plan of care - he wishes to defer this for now. documented in this encounter [facility] 10-25-2022 History of Present illness Narrative Images from the original note were not included. [facility] [place], Epilepsy Center Pediatric Epilepsy Date of Service: 10/25/2022 EPILEPSY CENTER - RETURN VISIT Last Epilepsy Visit: 08/27/2022 AGE: Estrella is now 17 year old. The patient was accompanied during the visit by the: mother We had a visit using: Nemedia I received consent from the patient/parent/guardian to perform the visit using this platform. REASON(S) FOR VISIT: Follow up HISTORY AND CLINICAL COURSE Handedness: right-handed Age at onset of symptoms / seizures: 14 years EPILEPSY CLASSIFICATION: Focal epilepsy (left hemisphere) SEIZURES: Right leg somatosensory -> Right versive -> Generalized tonic clonic seizures MRI: Normal ([place]) ETIOLOGY: Unknown EEG: Left temporo-parietal sharp waves ([place] - by report - not confirmed upon review of selected samples) ASSOCIATED CONDITIONS: Anxiety, ADHD Weight by report: 89 kg Blaise had onset of seizures at 14 years of age. On 03/20/2019, Blaise had onset of seizures with a cluster of 3 seizures in about 12 hours. The first involved confusion and garbled speech, and the next 2 evolved to generalized tonic clonic convulsion. In retrospect, about a week earlier, he had a missed seizure in his bedroom - he felt the paranoia that he later realized was his aura, walked to close the door, blacked out, and woke up in his bed with a black eye. On 03/20/2019, Blaise was admitted to [facility] where EEG was interpreted to show left temporo-parietal sharp waves {not appreciated on the samples sent for review] and MRI was normal. He was started on oxcarbazepine. Subsequent lab work showed hyponatremia and neutropenia. In late 03/2019, a transition to levetiracetam was initiated. Six days after starting levetiracetam, and about 1 month after starting oxcarbazepine, he developed a whole body rash. Both drugs were stopped, and he was started on clobazam. Since then, seizures have remained a concern. Features included an aura of paranoia and confusion, garbled speech, and tingling in the right foot which spread to the right leg and the then right side of the head for about 45 seconds. He usually signaled the seizure vocally, saying Mom or Dad or grunting. He then lay down on the floor on his side in a position, and as he blacked out his head jerked to the right with evolution to whole body stiffening and tremor with extension of the arms, fisting of the hands, grunting, labored breathing, and foaming at the mouth, without tongue bite or urine loss (video reviewed). Convulsions lasted 60 to 80 seconds, followed by headache and sleep. After medication was started, the tingling began on the right side of the head, without origin in the right foot and leg. In addition, he has also had a few seizures with the typical aura of paranoia and confusion, with garbled speech and no further evolution. All but one of his seizures have occurred while awake. Sleep deprivation is a trigger. Since onset of seizures in 03/2019, Felix has had the following events. - 04/2019 - 1 seizure on clobazam 20 mg/d - 04/2019 to 01/2020 - episodes of brain fog for a few seconds or minutes, with no outward sign, recurring once every other day - exact nature unclear [plus a panic attack in 07/2019, with normal bedside EEG] - 11/2019 to 02/2020 - 1 to 3 seizure per month, all but one with evolution to generalized tonic clonic convulsion, on brivaracetam and clobazam. Most recent seizure (02/17/2020) occurred on brivaracetam 200 mg/d and clobazam 40 mg/d. Blaise had no seizures while on oxcarbazepine for about a month, but with neutropenia, hyponatremia, and rash (6 days after addition of levetiracetam). He was on clobazam alone until 08/2020 then breviracetam alone for about 6 weeks, and then clobazam was added back in 11/2019 and increased to 40 mg/d by 02/2020. Throughout this period, seizures persisted every 2 to 3 weeks. After a seizure on 02/17/2020, Blaise was started on lacosamide 400 mg/d (with clobazam and brivaracetam), with cessation of seizures. SEIZURE OVERVIEW Lacosamide was started after a right sensorimotor -> generalized tonic clonic seizure on 02/17/2020. He has had no further seizures of this type since then. Over time Blaise reported brain fog episodes which have recurred over time since at least early 2019. I just kind of zone out and can't understand words that people are saying for about 8 seconds. Witnesses do not notice anything. Frequency is sporadic - 1 to 2 per week, then none for 2 or 3 weeks. - 05/05/2022 - One seizure with a rising sensation and brain fog, during which he heard incorrectly - some things came through, others not - and he heard things that aren't there. He remained able to walk and talk during the episode. The entire seizure lasted 2 or 3 minutes until full recovery. Occurred on lacosamide 600 mg/d with level 5.9 mg/l in 02/2021 (usual range 2 -19 mg/l) and clobazam 40 mg/d, in the setting of sleep deprivation (playing video games at night). - 08/23/2022 - One seizure which felt the same as the one in 04/2022. His father heard an odd noise while Blaise was taking a shower, and found Blaise sitting on the steps with his head turned to the side, making some coughing / guttural noises. His father placed his hand on Blaise's knee and the noises stopped and he responded immediately. Blaise remembered the entire event and reported that he had some brain fog and a rising sensation with an inability to hear correctly while in the bathroom, and came out and sat on the steps. Occurred on lacosamide 700 mg/d and clobazam 40 mg/d with good adherence. - 09/27/2022 - Another episode of brain fog - 10/12/2022 - Similar to previous events - he sat quietly, appeared to be 'there', could sometimes talk, at times nonsensically, and did not hear us well, but was not in full seizure mode, for about 60 seconds. Occurred on lacosamide 800 mg/d and clobazam 40 mg/d - 10/24/2022 - Occurred at work. Estrella described that he had one of his episodes of brain fog - he felt it coming on, sat down in some boxes and gradually recovered over several minutes (co-workers stayed with him). Occurred on lacosamide 800 mg/d and clobazam 40 mg/d. IN SUMMARY Blaise has epilepsy since 14 years of age. Seizure semiology indicated onset near the leg somatosensory region in the left hemisphere. In [place], MRI was normal and EEG was interpreted to showed left temporo-parietal sharp waves, although samples were normal to our review. MRI was normal. Seizures persisted on clobazam and brivaracetam. Oxcarbazepine was stopped after 1 week because of neutropenia, hyponatremia, and rash. Lacosamide was started in 02/2020, at 15 years of age, with no further right somatosensory then generalized tonic clonic seizures since then. Since at least early 2019, Blaise has had sporadic episodes of brain fog. I just kind of zone out and can't understand words that people are saying for about 8 seconds. Witnesses do not notice anything. Frequency is sporadic - 1 to 2 per week, then none for 2 or 3 weeks. In 04/2022 and 08/2022, the brain fog further evolved to include what an inability to hear correctly, and hearing things that weren't there. It is possible that the brain fog episodes are epileptic seizures. Episodes have persisted on lacosamide up to 800 mg/d and clobazam 40 mg/d. Video EEG may be helpful to clarify Blaise's seizure burden and assist with development of the care plan. Before proceeding with this, Blaise preferred to explore higher doses of his current medications. Future untried options include lamotrigine, topiramate, zonisamide, cenobamate, and felbamate. REVIEW OF SYSTEMS: The patient / family did not report additional concerns. There were no symptoms suggestive of cardiac, gastrointestinal, or endocrinal dysfunction. No abnormal skin findings. No symptoms suggestive of respiratory, genitourinary or musculoskeletal dysfunction. SEIZURE / EPISODE TYPE(S) Seizure Type 1 Psychic aura -> Right leg then right head somatosensory -> Right versive -> Generalized tonic clonic seizure Onset: 14 years Description: Aura of paranoia and confusion, garbled speech, and tingling in the right foot which spread to the right leg and the then right side of the head for about 45 seconds. He usually signaled the seizure vocally, saying Mom or Dad or grunting. He then lay down on the floor on his side in a position, and as he blacked out his head jerked to the right with evolution to whole body stiffening and tremor with extension of the arms, fisting of the hands, grunting, labored breathing, and foaming at the mouth, without tongue bite or urine loss (video reviewed). Convulsions lasted 60 to 80 seconds, followed by headache and sleep. After medication was started, the tingling began on the right side of the head, without origin in the right foot and leg. In addition, he has also had a few seizures with the typical aura of paranoia and confusion, with garbled speech and no further evolution. All but one of his seizures have occurred while awake. Sleep deprivation is a trigger. ASSOCIATED CONDITIONS, DEVELOPMENTAL HISTORY, AND SCHOOL Blaise experiences ADHD and anxiety, addressed with cognitive behavioral therapy - currently with therapy twice a month. Same and his parents deny and depression or suicidal ideation. His mother describes him as a joyful, optimistic person. Blaise earns A's and B's in regular classes in public school. He enjoys working out, playing soccer, and video games. ANTISEIZURE THERAPIES CURRENT ANTISEIZURE THERAPIES - Clobazam 40 mg/d - clobazam level 533 ng/ml (usual range 20 to 300 ng/ml), desmethylclobazam level 1050 ng/ml (usual range 300 to 3000 ng/ml) in 08/2022 - Lacosamide 800 mg/d - on 700 mg/d, lacosamide level 6.6 mg/l (usual range 2 -19 mg/l), desmethyllacosamide level 1.9 mg/l (usual range < 2.6 mg/l) in 08/2022 ANTISEIZURE MEDICATION LEVELS (LAST 3) Antiseizure Med Levels Latest Ref Rng & Units 08/25/2022 02/23/2021 10/07/2020 CLOBAZAM 30 - 300 ng/mL 533.0(H) - - 10HYDROXYCARBAZEPINE 3.0 - 35.0 ug/mL - - - LACOSAMIDE 2.2 - 19.8 ug/mL 6.6 5.9 4.5 N-DESMETHYLCLOBAZAM 300 - 3000 ng/mL 1050.0 - - CURRENT RESCUE MEDICATIONS Intranasal midazolam PRIOR/CURRENT ANTISEIZURE THERAPIES Brivaracetam Clobazam Lacosamide Levetiracetam Rash after 6 days (with oxcarbazepine, started 1 month prior) Oxcarbazepine Rash after 1 month (with levetiracetam) - also hyponatremia and neutropenia on 1800 mg/d, with no seizures SELECTED UNTRIED OPTIONS - Cenobamate - Felbamate - Lamotrigine - Topiramate - Zonisamide ALLERGIES Allergen Reactions Codeine Other: See Comments, Unknown Aversion Levetiracetam Rash Oxcarbazepine Other: See Comments, Rash Neutropenia, hyponatremia Seasonal Allergies Cough Shellfish Containin* Unknown Pre caution dad is allergic PATIENT-ENTERED DATA: KAYCE-DC Total Score: 16 (10/14/2020 9:53 AM) Ask Suicide Questionnaire (ASQ) 10/14/2020 1. In the past few weeks, have you wished you were ? No 2. In the past few weeks, have you felt that you or your family would be better off if you were ? No 3. In the past week, have you been having thoughts about killing yourself? No 4. Have you ever tried to kill yourself? No 5. Are you having thoughts of killing yourself right now? 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 MILD ASYMMETRY INVOLVING THE LEFT MID CINGULATE. Objective PHYSICAL EXAMINATION The examination during the virtual visit was observational. The following features were noted. GENERAL EXAMINATION: Estrella was alert and in no apparent distress. Respiration was regular and unlabored. NEUROLOGICAL EXAMINATION: Mental status: Alert and interactive Cranial nerves: Eye movements appear full and no facial asymmetry Motor: Movements of all four limbs appear symmetrical. Cerebellar: No nystagmus, dysmetria, or tremor IMPRESSION Blaise has epilepsy since 14 years of age. Seizure semiology indicated onset near the leg somatosensory region in the left hemisphere. In [place], MRI was normal and EEG was interpreted to showed left temporo-parietal sharp waves, although samples were normal to our review. MRI was normal. Seizures persisted on clobazam and brivaracetam. Oxcarbazepine was stopped after 1 week because of neutropenia, hyponatremia, and rash. Lacosamide was started in 02/2020, at 15 years of age, with no further right somatosensory then generalized tonic clonic seizures since then. Since at least early 2019, Blaise has had sporadic episodes of brain fog. I just kind of zone out and can't understand words that people are saying for about 8 seconds. Witnesses do not notice anything. Frequency is sporadic - 1 to 2 per week, then none for 2 or 3 weeks. In 04/2022 and 08/2022, the brain fog further evolved to include what an inability to hear correctly, and hearing things that weren't there. It is possible that the brain fog episodes are epileptic seizures. Episodes have persisted on lacosamide up to 800 mg/d and clobazam 40 mg/d. Video EEG may be helpful to clarify Blaise's seizure burden and assist with development of the care plan. Before proceeding with this, Blaise preferred to explore higher doses of his current medications. Future untried options include lamotrigine, topiramate, zonisamide, cenobamate, and felbamate. RECOMMENDATIONS - Explore higher doses of lacosamide as tolerated (with clobazam 40 mg/d) Lacosamide (Vimpat) 200 mg tabs, now taking 2 tabs twice daily = 800 mg/d 2 tabs in am and 3 tabs in pm = 1000 mg/d - Family has requested Brand lacosamide - Check lacosamide level in 1 month - Future untried options include lamotrigine, topiramate, zonisamide, cenobamate, and felbamate. - Video EEG was discussed to clarify Blaise's epilepsy and further develop the plan of care - he wishes to defer this for now. The possible risks, benefits, and alternatives to this plan were discussed. I again went over general epilepsy education points and seizure precautions with the family. Ongoing virtual visits are recommended for this patient, as travel is not advisable due to the COVID-19 pandemic. I spent a total of 40 minutes on the date of the service which included preparing to see the patient, [id number] patient care, completing clinical documentation, and counseling and educating the patient/family/caregiver. Brigid Eid M.D. Professor of Neurology, [facility] Medicine Staff Physician, [facility] Epilepsy Center [facility] [place] [address] CC: Neurological [facility] Referring Team Iva Car MD Referring Team, Pediatrics [phone] [address] [facility] [id number] Iva Car [address] [facility] [place] [address] The family of: Estrella Carroll [address] [place] [address] [facility] [id number] documented in this encounter [facility] 09-05-2022 Miscellaneous Notes Spoke with Blaise, reviewed letter, Dr. Eid's notes from last office visit. Advised that he may make an appointment with Dr. Eid to discuss further if needed. He verbalized understanding. Di Bermudez RN Patient retuning nurse call # [phone] Called Blaise, did not receive answer, message left. Will await call back. Di Bermudez RN Patient returning Nurse call. Please call patient at [phone] documented in this encounter [facility] 09-05-2022 Miscellaneous Notes See telephone encounter dated 09/05/22. Di Bermudez RN Called Blaise, did not receive answer, message left. Will await call back. Di Bermudez RN documented in this encounter [facility] 08-27-2022 Miscellaneous Notes The following approved medication requests have been transmitted electronically. Requested Prescriptions Pending Prescriptions Disp Refills lacosamide (VIMPAT) 200 mg 360 tablet 1 Sig: Take 2 tab twice daily (=800 mg/day) Brigid Eid MD Neuro Peds Epilepsy Care Coordination Physician Recommendation Date of service : August 27, 2022 Estrella Carroll is 17 year old. Last seen by Dr. Eid on 08/27/[address] Eid on 08/27/22. - Increase lacosamide from 700 mg/d to 800 mg/d and continue clobazam 40 mg/d - Follow up in 2 months - If seizures persist despite optimal oxcarbazepine and clobazam, then we will consider video EEG to clarify his seizure burden. ===== Spoke with and Mrs. Carroll and advised per Dr. Eid. They verbalized understanding and agrees with plan. Virtual visit scheduled for 10/25 @ 9:40 am. -Prescription appropriate, please file and document electronically. Thank you. Routed to Dr. Stanton Bermudez RN documented in this encounter [facility] 08-24-2022 Miscellaneous Notes Spoke with Mr. Carroll and advised per Dr. Eid. He verbalized understanding and agrees with plan. Routed to Dr. Eid to please file pending lab orders. Thank you. Di Bermudez RN Called Mr. Carroll, did not receive answer, message left. Will await call back. Di Bermudez RN The exact nature of the episode on 08/23/2022 is unclear. I recommend to update the pre-dose drug levels, continue the current regimen, and contact our office if events recur. Brigid Eid MD Neuro Peds Epilepsy Care Coordination Post-seizure/Medication Concerns/Side Effects Date of service : August 23, 2022 Estrella Carroll is a 17 year old. Last seen by Dr. Eid on 03/28/22. Has upcoming appt 08/27/22 Now~Yesterday afternoon, while Blaise was going to take a shower and dad heard an odd noise. He found Blaise sitting on the steps, with his head to the side and making some coughing/guttural noises. Dad placed his hand on his knee and he responded right away and the noises he was making stopped. Blaise reported he had some brain fog in the bathroom and came out and sat down on the steps. He remembers the entire episode. Current weight : 86 kg Current AEDs ( mg/kg/d) / recent drug level: Clobazam 40 mg/day Lacosamide 700 mg/day - on 500 mg/d, Lacosamide level was 5.9 (usual range 2 -19 mg/l), desmethyllacosamide level was 1.9 ug/mL (usual range < 2.6 ug/mL) in 02/2021 Recent changes/side effects: Episode on 08/23 as above Denies illness, missed medication doses and sleep deprivation. Main concern: Mr. Carroll reports episode as above, requested earlier appt. Virtual visit scheduled for 08/27 @ 1:40. Inquires if any med adjustment is needed while awaiting appt. Routed to Dr. Stanton Bermudez, RN General call : Full name of person calling: Chepe Carroll Relationship to patient: father Phone # : [phone] Reason for call: report an incident , unsure Patient of Dr. Eid documented in this encounter [facility] 07-11-2022 Miscellaneous Notes The following approved medication requests have been transmitted electronically. Requested Prescriptions Pending Prescriptions Disp Refills cloBAZam (ONFI) 10 mg tab tablet 360 tablet 1 Sig: Take (2) tablets by mouth twice daily (= 40 mg/d) Brigid Eid MD Date of service: July 11, 2022 Estrella Carroll is a 17 year old Last seen by Dr. Eid on 03/28/22 Now requesting clobazam refill Prescription appropriate, please file and document electronically. Thank you. Routed to Dr. Stanton Richardson RN documented in this encounter [facility] 06-19-2022 History of Present illness Narrative Estrella Carroll is a 17-year-old male who presents to the office today with concerns of ongoing pruritic rash that began approximately 3 days ago. Rash is migrating. Worse in the evening. Pictures have been provided which are consistent with urticaria. Patient does report URI symptoms starting 10 days ago. Initially did have some fever as well. No complaints of joint pain or joint discomfort. No complaints of chest tightness or shortness of breath. 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 PAST MEDICAL HISTORY Diagnosis Date COVID-19 virus infection 03/11/2020 positive PCR test 03/11/20 COVID-19 virus infection 03/11/2020 positive PCR test 03/11/20 Epilepsy (HCC) Partial epilepsy with intractable epilepsy (HCC) 02/29/2020 PAST SURGICAL HISTORY Procedure Laterality Date CIRCUMCISION LAPAROSCOPIC APPENDECTOMY 02-21-14 OPEN TX CLAVICULAR FRACTURE INTERNAL FIXATION ALLERGIES Allergen Reactions Codeine Other: See Comments, Unknown Aversion Levetiracetam Rash Oxcarbazepine Other: See Comments, Rash Neutropenia, hyponatremia Seasonal Allergies Cough Shellfish Containin* Unknown Pre caution dad is allergic 06/19/22 1135 Pulse: 84 Resp: 16 Temp: 36.7 C (98.1 F) TempSrc: Temporal Weight: 86 kg (189 lb 9.6 oz) GENERAL: alert and active in no apparent distress, nontoxic-appearing HEAD: Normocephalic, atraumatic EYES: Conjunctiva without injection or discharge. No scleral icterus is present EARS: External auditory canals are free of lesions bilaterally. Tympanic membranes are intact bilaterally without evidence of fluid in the middle ear space NOSE/SINUSES : Congested with scant clear nasal discharge OROPHARYNX:moist mucous membranes, tonsils without hypertrophy and no exudates present NECK: Negative for anterior or posterior cervical adenopathy CARDIOVASCULAR : Regular Rate and Rhythm without murmurs or clicks, well perfused LUNGS: clear to auscultation, excellent air exchange, easy respirations without grunting/flaring/retracting. ABDOMEN : Abdomen is soft, nontender, without organomegaly or masses. No guarding or rebound. Bowel sounds are intact in all 4 quadrants. MUSCULOSKELETAL: Extremities with FROM and no problems identified. EXTREMITIES: No clubbing, cyanosis, or edema. NEUROLOGICAL : Muscle tone normal and Normal age appropriate gait SKIN : normal color, no jaundice or rash and Normal skin turgor. Urticaria are present at this time Impression: (L50.8) Acute urticaria (primary encounter diagnosis) (J06.9) Viral upper respiratory tract infection Plan: Office Visit on 06/19/22 famotidine (PEPCID) 20 mg tablet cetirizine (ZYRTEC) 10 mg tablet Drug interaction program completed. No significant interaction with his epilepsy medications. Recommend he take the combination of famotidine and Zyrtec for 1 month. Education given. Course of illness/condition and rationale for treatment discussed. I spent a total of 25 minutes on the date of the service which included preparing to see the patient, [id number] patient care, completing clinical documentation, obtaining and/or reviewing separately obtained history, performing a medically appropriate examination, counseling and educating the patient/family/caregiver, and ordering medications, tests, or procedures. Follow-up prn Iva Car MD [facility] Department of Pediatrics, [facility] documented in this encounter [facility] 06-14-2022 Instructions Jules Self APRN.[employer]PRESENT[employer]IVE - 06/14/2022 11:40 AM EDT How to Manage Common Symptoms Associated with COVID for Adults Fever- Fever is a temperature over 100.4 F and can occur when the body is fighting an infection. To help treat a fever: Drink plenty of fluids and stay well hydrated. Eat small amounts of easy to digest food. Rest. Your body needs rest to recover, but getting up and moving around the house frequently is a good idea. You should try to continue doing your normal daily activities (bathing, toileting, grooming, cooking), though you will probably feel tired, and need to rest often. Avoid any heavy activity or exercise, as this will increase your body temperature. Dress in light clothing and stay covered in a light sheet. Keep the room temperature cool. Take a slightly warm (not cold or cool) bath, or apply damp washcloths to the forehead and wrists. Cough- Cough is a common symptom associated with COVID and can be bothersome. To help treat a cough: Stay well hydrated. Try warm water or tea with lemon and/or honey to help soothe the cough. Use a humidifier to add moisture to the air. Try a product with menthol, like a cough drop or a rub for your chest such as Vicks, which can help reduce cough. Try cough drops. Avoid smoking and other strong odors or perfumes. Try breathing exercises to keep your lungs open and clear. Take a big deep breath through your nose and hold for 5 seconds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 that he later realized was his aura, walked to close the door, blacked out, and woke up in his bed with a black eye. On 03/20/2019, Blaise was admitted to [facility] where EEG was interpreted to show left temporo-parietal sharp waves {not appreciated on the samples sent for review] and MRI was normal. He was started on oxcarbazepine. Subsequent lab work showed hyponatremia and neutropenia. In late 03/2019, a transition to levetiracetam was initiated. Six days after starting levetiracetam, and about 1 month after starting oxcarbazepine, he developed a whole body rash. Both drugs were stopped, and he was started on clobazam. Since then, seizures have remained a concern. Features included an aura of paranoia and confusion, garbled speech, and tingling in the right foot which spread to the right leg and the then right side of the head for about 45 seconds. He usually signaled the seizure vocally, saying Mom or Dad or grunting. He then lay down on the floor on his side in a position, and as he blacked out his head jerked to the right with evolution to whole body stiffening and tremor with extension of the arms, fisting of the hands, grunting, labored breathing, and foaming at the mouth, without tongue bite or urine loss (video reviewed). Convulsions lasted 60 to 80 seconds, followed by headache and sleep. After medication was started, the tingling began on the right side of the head, without origin in the right foot and leg. In addition, he has also had a few seizures with the typical aura of paranoia and confusion, with garbled speech and no further evolution. All but one of his seizures have occurred while awake. Sleep deprivation is a trigger. Since onset of seizures in 03/2019, Felix has had the following events. - 04/2019 - 1 seizure on clobazam 20 mg/d - 04/2019 to 01/2020 - episodes of brain fog for a few seconds or minutes, with no outward sign, recurring once every other day - exact nature unclear [plus a panic attack in 07/2019, with normal bedside EEG] - 11/2019 to 02/2020 - 1 to 3 seizure per month, all but one with evolution to generalized tonic clonic convulsion, on brivaracetam and clobazam. Most recent seizure (02/17/2020) occurred on brivaracetam 200 mg/d and clobazam 40 mg/d. Blaise had no seizures while on oxcarbazepine for about a month, but with neutropenia, hyponatremia, and rash (6 days after addition of levetiracetam). He was on clobazam alone until 08/2020 then breviracetam alone for about 6 weeks, and then clobazam was added back in 11/2019 and increased to 40 mg/d by 02/2020. Throughout this period, seizures persisted every 2 to 3 weeks. After a seizure on 02/17/2020, Blaise was started on lacosamide 400 mg/d (with clobazam and brivaracetam), with no further occurrence of his typical seizures or auras since then. In 03/2020 the family elected to increase the dose to 500 mg/d because of blood level on the low side. Follow up trough level on 500 mg/d was 34.5 (usual range 2 -19 mg/l), desmethyllacosamide level 1.7 ug/mL (usual range < 2.6 ug/mL) in 09/2020. He was not experiencing any adverse effects. In 10/2020 we discussed options at length including whether or not to reduce the lacosamide or wean brivaracetam or clobazam. Blaise preferred to make no change, and continue all 3 medications. Concern about seizure recurrence is a trigger for his anxiety. In 01/2021, Blaise again reported brain fog episodes which have recurred over time since at least early 2019. I just kind of zone out and can't understand words that people are saying for about 8 seconds. Witnesses do not notice anything Baseline frequency is about twice per month, although in 11/2020 he experienced 2 per week. Blaise feels that these episodes are related to anxiety - he reported that my mother and my sister both have 'brain fog' as part of their anxiety. He did not feel that these episodes warranted further video EEG or medication change. In 01/2021, Blaise elected to make no change in his regimen. He will start pyridoxine in the thought that this may decrease any effect of the medications on his anxiety. We discussed that if this is not helpful, we should consider possibly weaning briviracetam, which could potentially play a role. In 06/2021, Blaise was seen in consultation by our psychiatrist, Dr. Abbie Mallory. She reported that Blaise expressed interest in possibly weaning briviracetam for its possible role in his depression. She also reported a plan for talk therapy with a psychologist, and treatment with fluoxetine. He will follow with Dr. Dee Matt while Dr. Camargo is on maternity leave. Blaise also experienced anxiety, depression, and momentary episodes of brain fog (as do his mother and sister). He iwa working with Dr. Mallory on this. In 07/2021 he noted that sometimes his brain goes in another direction, and my response time seems to slow down, but I stay completely aware and know what's going on. These episodes essentially resolved when brivaracetam was weaned. IN SUMMARY Blaise has epilepsy since 14 years of age. Seizure semiology indicated onset near the leg somatosensory region in the left hemisphere. In [place], MRI was normal and EEG was interpreted to showed left temporo-parietal sharp waves, although samples were normal to our review. MRI was normal. Seizures persisted on clobazam and brivaracetam. Oxcarbazepine was stopped after 1 week because of neutropenia, hyponatremia, and rash. Lacosamide stopped the seizures - Estrella's last clear seizure was in 02/2020, at 15 years of age, before lacosamide was started. In 07/2021, brivaracetam. Was weaned. At the same time, Blaise elected to increase lacosamide from 500 to 600 mg/d for a greater margin of safety. In 03/2022 it was elected to attempt to wean clobazam. REVIEW OF SYSTEMS: The patient / family did not report additional concerns. There were no symptoms suggestive of cardiac, gastrointestinal, or endocrinal dysfunction. No abnormal skin findings. No symptoms suggestive of respiratory, genitourinary or musculoskeletal dysfunction. SEIZURE / EPISODE TYPE(S) Seizure Type 1 Psychic aura -> Right leg then right head somatosensory -> Right versive -> Generalized tonic clonic seizure Onset: 14 years Description: Aura of paranoia and confusion, garbled speech, and tingling in the right foot which spread to the right leg and the then right side of the head for about 45 seconds. He usually signaled the seizure vocally, saying Mom or Dad or grunting. He then lay down on the floor on his side in a position, and as he blacked out his head jerked to the right with evolution to whole body stiffening and tremor with extension of the arms, fisting of the hands, grunting, labored breathing, and foaming at the mouth, without tongue bite or urine loss (video reviewed). Convulsions lasted 60 to 80 seconds, followed by headache and sleep. After medication was started, the tingling began on the right side of the head, without origin in the right foot and leg. In addition, he has also had a few seizures with the typical aura of paranoia and confusion, with garbled speech and no further evolution. All but one of his seizures have occurred while awake. Sleep deprivation is a trigger. ASSOCIATED CONDITIONS, DEVELOPMENTAL HISTORY, AND SCHOOL Blaise experiences ADHD and anxiety, addressed with cognitive behavioral therapy - currently with therapy twice a month. Same and his parents deny and depression or suicidal ideation. His mother describes him as a joyful, optimistic person. Blaise earns A's and B's in regular classes in public school. He enjoys working out, playing soccer, and video games. ANTISEIZURE THERAPIES CURRENT ANTISEIZURE THERAPIES - Brivaracetam 200 mg/d - Clobazam 40 mg/d - Lacosamide 600 mg/d - on 500 mg/d, Lacosamide level was 5.9 (usual range 2 -19 mg/l), desmethyllacosamide level was 1.9 ug/mL (usual range < 2.6 ug/mL) in 02/2021 ANTISEIZURE MEDICATION LEVELS (LAST 3) Antiseizure Med Levels Latest Ref Rng & Units 02/23/2021 10/07/2020 04/06/2020 10HYDROXYCARBAZEPINE 3.0 - 35.0 ug/mL - - - LACOSAMIDE 2.2 - 19.8 ug/mL 5.9 4.5 3.7 CURRENT RESCUE MEDICATIONS Intranasal midazolam PRIOR/CURRENT ANTISEIZURE THERAPIES Brivaracetam Clobazam Lacosamide Levetiracetam Rash after 6 days (with oxcarbazepine, started 1 month prior) Oxcarbazepine Rash after 1 month (with levetiracetam) - also hyponatremia and neutropenia on 1800 mg/d, with no seizures SELECTED UNTRIED OPTIONS - Lacosamide ALLERGIES Allergen Reactions Codeine Other: See Comments, Unknown Aversion Levetiracetam Rash Oxcarbazepine Other: See Comments, Rash Neutropenia, hyponatremia Seasonal Allergies Cough Shellfish Containin* Unknown Pre caution dad is allergic PATIENT-ENTERED DATA: KAYCE-DC Total Score: 16 (10/14/2020 9:53 AM) Ask Suicide Questionnaire (ASQ) 10/14/2020 1. In the past few weeks, have you wished you were ? No 2. In the past few weeks, have you felt that you or your family would be better off if you were ? No 3. In the past week, have you been having thoughts about killing yourself? No 4. Have you ever tried to kill yourself? No 5. Are you having thoughts of killing yourself right now? 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 MILD ASYMMETRY INVOLVING THE LEFT MID CINGULATE. Objective PHYSICAL EXAMINATION The examination during the virtual visit was observational. The following features were noted. GENERAL EXAMINATION: Estrella was alert and in no apparent distress. Respiration was regular and unlabored. NEUROLOGICAL EXAMINATION: Mental status: Alert and interactive, conversational, friendly, and cooperative Cranial nerves: Eye movements appear full and no facial asymmetry Motor: Movements of all four limbs appear symmetrical. Cerebellar: No nystagmus, dysmetria, or tremor IMPRESSION Blaise has epilepsy since 14 years of age. Seizure semiology indicated onset near the leg somatosensory region in the left hemisphere. In [place], MRI was normal and EEG was interpreted to showed left temporo-parietal sharp waves, although samples were normal to our review. MRI was normal. Seizures persisted on clobazam and brivaracetam. Oxcarbazepine was stopped after 1 week because of neutropenia, hyponatremia, and rash. Lacosamide stopped the seizures - Estrella's last clear seizure was in 02/2020, at 15 years of age, before lacosamide was started. In 07/2021, brivaracetam. Was weaned. At the same time, Blaise elected to increase lacosamide from 500 to 600 mg/d for a greater margin of safety. In 03/2022 it was elected to attempt to wean clobazam. RECOMMENDATIONS - Continue lacosamide 600 mg/d - Wean clobazam Clobazam (Onfi) 10 mg tabs, now taking 2 tabs twice daily = 40 mg/d 1 tab in am and 2 tabs in pm for 1 week 1 tab in am and 1 tab in pm for 1 week 1 tab in pm only for 1 week Then stop - Zonisamide may be further increased if seizures recur - May maintain driving privileges unless seizures recur - Return in 6 months The possible risks, benefits, and alternatives to this plan were discussed. I again went over general epilepsy education points and seizure precautions with the family. Ongoing virtual visits are recommended for this patient, as travel is not advisable due to the COVID-19 pandemic. I spent a total of 40 minutes on the date of the service which included preparing to see the patient, [id number] patient care, completing clinical documentation, counseling and educating the patient/family/caregiver, and ordering medications, tests, or procedures. Brigid Eid M.D. Professor of Neurology, [facility] Staff Physician, [facility] Epilepsy Center [facility] [place] [id number] CC: [facility] [place] Referring Team Iva Car MD Referring Team, Pediatrics [phone] [address] [facility] [address] Iva Car [address] [place] [address] The family of: Estrella Carroll [address] [place] [address] [place] [address] documented in this encounter [facility] 03-26-2022 Instructions Iva Car MD - 03/26/2022 3:24 PM EST Images from the original note were not included. 5 to Go!TM Healthy Kids Inside & Out 5 Eat FIVE fruits and veggies a day 4 Give and get FOUR compliments a day 3 Consume THREE calcium products a day 2 Limit media time to TWO hours a day 1 Get at least ONE hour of exercise a day 0 Consume ZERO sugar-sweetened drinks Go! Be healthy, inside and out! [email or web address] Adolescent to Adult Transition Program [facility] cares about helping you and each of our adolescents and young adults make a smooth transition to adult care. If your current doctor is a cvicu rn, we will work with you to decide the correct age for moving your care to a doctor or other provider who takes care of adults. We suggest that this move take place before age 22. Our office policy is to prepare you to move to a doctor or other provider who takes care of adults. This includes helping you find a doctor or other provider, sending medical records, and talking about any special needs with the new doctor or other provider. If your current doctor is in family medicine, [facility] will prepare you and your family for the transition to being an adult patient. You will be able to make your own healthcare decisions and will have an adult care team that meets your personal healthcare needs. At age 18, by law, we need your agreement to discuss personal health information with your family. We understand and respect that you may want to include your family in healthcare choices and will partner with you on how and when to include your family in decisions. We will make sure you know what changes to expect. We will also strive to make sure that all care team providers know your needs. We will help you find community resources and specialty care, if needed. Having your information before you come for the first time helps us be sure we do not miss any details. If joining our practice from outside [facility], we will help you request your medical record from past doctor(s) before your first visit. We will make every effort to work with your past providers to ensure a smooth transition and experience. We are always here for you. If you have any questions or concerns, please contact your primary care team or e-mail [employer] is the federally funded national resource center on health care transition (HCT). Its aim is to improve transition from pediatric to adult health care through the use of evidence-driven strategies for health career development coordinator/teacher, youth, young adults, and their families. www.gottransition.org https://gottransition.org/resource [email or web address] documented in this encounter [facility] 03-26-2022 History of Present illness Narrative WELL VISIT PEDIATRIC 18+YRS OLD SERVICE DATE: 03/26/2022 Estrella is a 17 year old who presents today for well exam. 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 PAST MEDICAL HISTORY Diagnosis Date COVID-19 virus infection 03/11/2020 positive PCR test 03/11/20 COVID-19 virus infection 03/11/2020 positive PCR test 03/11/20 Epilepsy (HCC) Partial epilepsy with intractable epilepsy (HCC) 02/29/2020 PAST SURGICAL HISTORY Procedure Laterality Date CIRCUMCISION LAPAROSCOPIC APPENDECTOMY 02-21-14 OPEN TX CLAVICULAR FRACTURE INTERNAL FIXATION ALLERGIES Allergen Reactions Codeine Other: See Comments, Unknown Aversion Levetiracetam Rash Oxcarbazepine Other: See Comments, Rash Neutropenia, hyponatremia Seasonal Allergies Cough Shellfish Containin* Unknown Pre caution dad is allergic Medications: cloBAZam (ONFI) 10 mg tab tablet Take (2) tablets by mouth twice daily (= 40 mg/d) VIMPAT 100 mg tab Take one tablet twice a day (along with 200 mg tabs, = 600 mg/day) VIMPAT 200 mg Take one tablet twice a day (along with 100 mg tabs, = 600 mg/day) midazolam (NAYZILAM) 5 mg/spray (0.1 mL) nasal spray Give 5 mg (0.1 ml) as a single dose in ONE nostril for seizure cluster or prolonged seizure lasting > 3 minutes. The same dose may be repeated in 10 minutes in the OTHER nostril if the seizure continues after the first dose. mens gummy multivitamin (CENTRUM) chewable tablet Take 1 tablet by mouth once daily. FAMILY HISTORY Problem Relation Age of Onset other (diverticulitis) Maternal Grandmother other (LEUKEMIA) Maternal Grandfather Social History Social History Narrative Blaise lives with both parents and has 3 siblings. Smoking Exposure: Do you spend a significant amount of time with anyone who smokes? No School: College freshman grade; grades B-C. Physical Activity: more than 1 hour of physical activity per day Screen Time totaling less than 2 hours of screen time per day. Safety: Pediatric SDOH - Response to gun questions 01/24/2021 Are there any guns kept in or around your home or where your child spends time? No Reviewed seat belts, bike helmets, internet, and driving Diet: -Eats 2 meals per day and 3 snacks per day -Typical beverages include water -Fruits and vegetables are eaten with nearly every meal Elimination: no concerns, normal size and consistency Dental: dental care current Sleep: -no sleep concerns Vision: No vision concerns Hearing: No hearing concerns Growth: No growth concerns Substance use: marijuana Sexual History: Attraction: female Sexually Active: Yes Number of lifetime partners: 3 Contraception: condoms inconsistently History of STI: No Hx of STI/HIV testing? No Any new partners since last testing? No Penile discharge: No Body image: satisfactory Screening tools reviewed and discussed with patient/nmgxwx-SGA-2. Please see Patient Entered Data. OBJECTIVE Physical Exam: BP 110/74 Pulse 86 Temp 36.8 C (98.2 F) (Temporal) Resp 16 Ht 187.3 cm (6' 1.74) Wt 85.6 kg (188 lb 12.8 oz) BMI 24.41 kg/m Body mass index is 24.41 kg/m . Last BMI: Wt: 80.9 kg (178 lb 6.4 oz) (83 %, Z= 0.96)* BMI: 23.37 kg/(m^2) Last 4 Encounter Wt Readings: Date: Wt: 09/08/2021 80.9 kg (178 lb 6.4 oz) (83 %, Z= 0.96)* 09/05/2021 82.7 kg (182 lb 6.4 oz) (86 %, Z= 1.08)* 01/27/2021 83.5 kg (184 lb) (89 %, Z= 1.20)* 12/15/2020 80.8 kg (178 lb 3.2 oz) (86 %, Z= 1.06)* Last 4 Encounter Ht Readings: Date: Ht: 01/27/2021 186.1 cm (6' 1.27) (92 %, Z= 1.41)* 07/13/2020 186.8 cm (6' 1.54) (94 %, Z= 1.56)* 01/15/2020 185.6 cm (6' 1.07) (93 %, Z= 1.46)* 01/06/2019 181.9 cm (5' 11.61) (88 %, Z= 1.19)* General: alert and active in no apparent distress Head: Normocephalic, atraumatic Eyes: PERRLA, EOM's intact Ears: External ears normal. Canals clear. Tympanic membranes are intact bilaterally without evidence of fluid in the middle ear space Nose/Sinuses: Nares normal. Septum midline. Mucosa normal. No drainage or sinus tenderness. Oropharynx: Tonsils are 1+. Uvula is midline and the oropharynx is symmetrical Neck: No masses and the suprasternal notch, no supraclavicular adenopathy, supple, no adenopathy Thyroid: no masses or nodules present Heart: Regular Rate and Rhythm without murmurs or clicks, femoral and radial pulses are normal.PMI normal Lungs: clear to auscultation. No wheezes or rales.Chest AP diameter normal. Abdomen: Abdomen is soft, nontender, without organomegaly or masses. Breasts: normal male exam : Jonh V male. Testicles descended bilaterally without evidence of hernia, hydrocele or mass Musculoskeletal: Extremities with FROM and no problems identified. Negative Guerrero forward bend test. Bilateral shoulder, elbow and wrist exams are within normal limits. Bilateral hip, knee and ankle examinations are within normal limits. Neurological: Muscle tone normal, Awake, alert and oriented x 3, Cranial nerves II-XII grossly intact, Normal age appropriate gait, muscle tone normal, muscle strength 5/5 in the upper and lower extremities bilaterally and symmetrically, rapid alternating movements smooth in the hands without evidence of dysdiadochokinesia Skin: Normal skin exam without concerning lesions ASSESSMENT: 17 year old Well exam 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 PLAN: 1) Plan per orders. 2) Hearing and Vision if done at the visit was discussed and reviewed with the patient and family. 3) Questionnaires, if administered at the office today, were reviewed with the patient and family. 4) Growth curves including BMI were reviewed with the patient. Education regarding BMI, its meaning utility and limitations were discussed in the office today. If the BMI was elevated, we discussed interventions. 5) Counseling: See patient instruction section 6) Follow up every 1 year for well exam and PRN. Depression Screening 04/28/2020 10/14/2020 08/15/2021 03/26/2022 PHQ-2 Score 0 2 1 1 PHQ-9 Score - - - 6 Depression screening tool completed and reviewed. Based on score and interview, patient is not at risk for depression. Screening tool discussed with patient, and I recommended no further intervention at this time. The patient does however have epilepsy and this population does have a slightly higher risk of depression. His assessment is not consistent with depression at this time. - Discussed diet and safety. - Dental care discussed. - [employer] handout given (See Patient Instructions). - No immunizations were recommended to be given at this visit. - Follow up in one year for routine physical. SIGNATURE:Iva Car MD PATIENT NAME: Estrella Carroll DATE: March 26, 2022 TIME: 3:14 PM documented in this encounter [facility] 03-03-2022 Miscellaneous Notes Pt mother called in with question regarding pt missing medication. Pt is currently on LCM 300 mg BID and Onfi 20 mg BID. He takes his medication at 7 am and 7 pm. He missed the 7 am dose and did not remember to take it until 5 pm. They are wondering what they should do with the evening dose. Recommended pt take his ASMs next at 7 am as scheduled given delay of morning dose. Gregoria George MD Neurology PGY-2 03/03/22 documented in this encounter [facility] 01-14-2022 Miscellaneous Notes Reason: Mother states son is on the way to Urgent care with his father. Wants to make sure none of epilepsy medications will interfere with any new medications. Outcome:Advised her to inform doctor of all medications on admission. Reason for Disposition [1] Caller is not with the child AND [2] probable non-urgent symptoms AND [3] unable to complete triage (NOTE: parent to call back with triage info) Protocols used: Information Only Call - No [id number] documented in this encounter [facility] 12-19-2021 Miscellaneous Notes The following approved medication requests have been transmitted electronically. Requested Prescriptions Pending Prescriptions Disp Refills cloBAZam (ONFI) 10 mg tab tablet 360 tablet 1 Sig: Take (2) tablets by mouth twice daily (= 40 mg/d) Brigid Eid MD Date of service: December 19, 2021 Estrella Carroll is a 16 year old. Last seen by Dr. Eid on 08/15/21 Now requesting clobazam refill -Prescription appropriate, please file and document electronically. Thank you. -Routed to Dr. Stanton Bermudez RN Prescription Refill: Requested by: pharmacy Please E-Scribe Caller Contact Number: Pharmacy Name: [facility] Pharmacy Number: [phone] Generic/ brand: 30 or 90 day supply requested: 90 Last appointment: 08/15/2021 Next Appointment: none Patient of Dr. Eid documented in this encounter [facility] 11-06-2021 Miscellaneous Notes The following approved medication requests have been transmitted electronically. Requested Prescriptions Pending Prescriptions Disp Refills VIMPAT 100 mg tab 180 tablet 1 Sig: Take one tablet twice a day (along with 200 mg tabs, = 600 mg/day) VIMPAT 200 mg 180 tablet 1 Sig: Take one tablet twice a day (along with 100 mg tabs, = 600 mg/day) Brigid Eid MD Date of service: November 06, 2021 Estrella Carroll is a 16 year old. Last seen by Dr. Eid on 08/15/21 Now requesting lacosamide refill -Prescription appropriate, please file and document electronically. Thank you. -Routed to Dr. 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 Faxed and original to [facility]. Davion Castro RN Patient's father calling to ask about status of form. When form is completed, please contact patient's father @ # [phone]. Dori Conner RN College form at [facility] desk for review/signature. documented in this encounter [facility] 09-26-2021 Miscellaneous Notes BMV forms completed and sent via [employer]. Copy e-mailed to patient via [employer]. Di Bermudez RN BMV forms completed with the followng pertinent information: Date of onset of epilepsy: 2019 Date of last seizure: Feb 2020 Current ASMs / recent drug levels: - Clobazam 40 mg/d - Lacosamide 500 mg/d - Lacosamide level 5.9 (usual range 2 -19 mg/l), desmethyllacosamide level 1.9 ug/mL (usual range < 2.6 ug/mL) in 02/2021 Driving related issues discussed with family, understanding verbalized. Driving privileges allowed with reevaluation in 12 months -Forms completed via [employer]. Di Bermudez RN documented in this encounter [facility] 09-08-2021 History of Present illness Narrative 16-year-old male presents to the office today for follow-up and management after being seen in urgent care for pharyngitis. Monospot test is positive. Patient reports his symptoms of sore throat are improved over the last 2 days. He does have approximately 10 pounds of weight loss based on home weights at the start of the illness. He is tolerating oral intake better. Drinking very well. Urinating several times per day. Occasional headache. No issues with breakthrough seizures during the illness as the patient has partial epilepsy. Despite the pharyngitis he is perfectly compliant with his epilepsy medication. Component Latest Ref Rng & Units 09/05/2021 09/06/2021 COVID 19 Result Not Detected SARS-CoV-2 (Agent of COVID-19) Not Detected by RT-PCR or equivalent method. 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 PAST MEDICAL HISTORY Diagnosis Date COVID-19 virus infection 03/11/2020 positive PCR test 03/11/20 COVID-19 virus infection 03/11/2020 positive PCR test 03/11/20 Epilepsy (HCC) Partial epilepsy with intractable epilepsy (HCC) 02/29/2020 PAST SURGICAL HISTORY Procedure Laterality Date CIRCUMCISION LAPAROSCOPIC APPENDECTOMY 02-21-14 OPEN TX CLAVICULAR FRACTURE INTERNAL FIXATION ALLERGIES Allergen Reactions Codeine Other: See Comments, Unknown Aversion Levetiracetam Rash Oxcarbazepine Other: See Comments, Rash Neutropenia, hyponatremia Seasonal Allergies Cough Shellfish Containin* Unknown Pre caution dad is allergic 09/08/21 1117 Pulse: 64 Resp: 16 Temp: (!) 38.3 C (101 F) TempSrc: Temporal Weight: 80.9 kg (178 lb 6.4 oz) GENERAL: alert and active in no apparent distress, nontoxic-appearing HEAD: Normocephalic, atraumatic EYES: EOM's intact, conjunctiva without injection or discharge, no scleral icterus is present, very discrete preseptal edema is present EARS: External auditory canals are free of lesions bilaterally. Tympanic membranes are intact bilaterally without evidence of fluid in the middle ear space NOSE/SINUSES : Nares normal without discharge OROPHARYNX:moist mucous membranes, tonsils 2+ with erythema and exudate, the uvula is midline and the oropharynx is symmetric negative for trismus, no phlegmon is present, negative for trismus NECK: Negative for bilateral anterior cervical adenopathy. No masses are present in the suprasternal notch. No supraclavicular is present. VOICE: Very mild dysphonia is present CARDIOVASCULAR : Regular Rate and Rhythm without murmurs or clicks, well perfused LUNGS: clear to auscultation, excellent air exchange, negative for stridor or stertor, easy respirations without grunting/flaring/retracting. ABDOMEN : Abdomen is soft, nontender, without organomegaly or masses. MUSCULOSKELETAL: Extremities with FROM and no problems identified. EXTREMITIES: No clubbing, cyanosis, or edema. NEUROLOGICAL : Muscle tone normal and Normal age appropriate gait SKIN : Negative for rash. Negative for jaundice. Normal skin turgor Impression: (B27.90) Infectious mononucleosis without complication, infectious mononucleosis due to unspecified organism (primary encounter diagnosis) Plan: Reassurance Education given. Course of illness/condition and rationale for observation and symptomatic treatment discussed. I spent a total of 25 minutes on the date of the service which included preparing to see the patient, [id number] patient care, completing clinical documentation, obtaining and/or reviewing separately obtained history, performing a medically appropriate examination, counseling and educating the patient/family/caregiver and ordering medications, tests, or procedures. Follow-up 2 to 3 weeks Iva Car MD [facility] Department of Pediatrics, [facility] documented in this encounter [facility] 09-07-2021 Miscellaneous Notes Patient identified by name and date of . Discussed positive mono test with patient's mother. Advised viral illness, supportive care, course and contagiousness. Blaise has a follow up appointment with Dr. Car tomorrow. Ca Johnson APRN.CM documented in this encounter [facility] 09-05-2021 Miscellaneous Notes Spoke with mother, informed that tonsils are swollen, not touching, able to swallow and handle secretions, not swollen that it is alarming. Verbalized understanding, informed to watch for increase in swelling, and drooling to go to ED Jaci Marcos APRN.CM Patient was just in Urgent Care. Chepe/Dad is wanting to know if Jaci thought Blaise's tonsils were swollen. Please advise. Agnes Galarza LPN documented in this encounter [facility] 09-05-2021 Instructions Jaci Marcos APRN.CM - 09/05/2021 2:19 PM EDT covid test ordered You will be notified in 24 -48 hours, results available on [facility] Home isolation until covid results are back Rest, increase water intake Motrin or Tylenol as needed for fever or pain. Salt water gargles, chloraseptic spray or lozenges as needed for sore throat. Warm beverages, honey. Nasal saline spray as needed Cool mist humidifier at night Tylenol (generic acetaminophen) 500 mg-2 tabs every 8 hrs. as needed for fever and aches Ibuprofen 600 mg (3-200mg tablets) every 6 hours -Sudafed (generic is fine), behind the counter, 2x30 mg tabs twice daily as needed for congestion - helps dry -Mucinex (generic is fine) Guaifenesin 1200 mg twice daily to help with cough and to thin out mucus - more runny nose * Seek medical care immediately, call 911, go to ER if you have chest pain, difficulty breathing, shortness of breath, inability to swallow. If still sore throat and negative covid, monotest tomorrow. documented in this encounter [facility] 09-05-2021 History of Present illness Narrative Subjective The history is provided by the patient. No customer solutions architect was used. HPI Estrella Carroll is a 16 year old male who presents today for CC of sore throat, swollen tonsils for 2-3 days. He is also having a fever, nasal congestion. Denies any cough, loss of smell or taste, nausea, vomiting, diarrhea, or abdominal pain. He is able to swallow and handle secretions. BP 122/80 Pulse 96 Temp (!) 38.5 C (101.3 F) (Tympanic) Resp 18 Wt 82.7 kg (182 lb 6.4 oz) SpO2 97% Social History Tobacco Use Smoking status: Never Smoker Smokeless tobacco: Never Used Vaping Use Vaping Use: Never used Substance Use Topics Alcohol use: No Drug use: No PAST MEDICAL HISTORY Diagnosis Date COVID-19 virus infection 03/11/2020 positive PCR test 03/11/20 COVID-19 virus infection 03/11/2020 positive PCR test 03/11/20 Epilepsy (HCC) Partial epilepsy with intractable epilepsy (HCC) 02/29/2020 I have confirmed and edited as necessary, the [facility] Review of Systems Constitutional: Negative for chills and fever. HENT: Positive for sore throat. Negative for congestion, ear pain and sinus pain. Respiratory: Negative for cough, sputum production, shortness of breath and wheezing. Cardiovascular: Negative for chest pain. Musculoskeletal: Negative for myalgias. Neurological: Negative for headaches. Objective Physical Exam Vitals and nursing note reviewed. HENT: Head: Normocephalic and atraumatic. Right Ear: Tympanic membrane, ear canal and external ear normal. Left Ear: Tympanic membrane, ear canal and external ear normal. Nose: Mucosal edema, congestion and rhinorrhea present. Right Sinus: No maxillary sinus tenderness or frontal sinus tenderness. Left Sinus: No maxillary sinus tenderness or frontal sinus tenderness. Mouth/Throat: Pharynx: Uvula midline. Oropharyngeal exudate and posterior oropharyngeal erythema present. Tonsils: No tonsillar abscesses. 3+ on the right. 3+ on the left. Cardiovascular: Rate and Rhythm: Normal rate and regular rhythm. Heart sounds: Normal heart sounds. Pulmonary: Effort: Pulmonary effort is normal. Breath sounds: Normal breath sounds. No decreased breath sounds, wheezing, rhonchi or rales. Lymphadenopathy: Head: Right side of head: No submental, submandibular, tonsillar or preauricular adenopathy. Left side of head: No submental, submandibular, tonsillar or preauricular adenopathy. Cervical: Cervical adenopathy present. Right cervical: Superficial cervical adenopathy present. Left cervical: Superficial cervical adenopathy present. ASSESSMENT/PLAN: 1. Sore throat - ICD9: 462, ICD10: J02.9 (primary diagnosis) - suspect viral - Alere Strep negtaive, no culture pending - The patient may also use warm salt water gargles, throat lozenges and/or OTC throat spray as needed. - The patient should follow up in one week if symptoms persist or worsen - Call back if drooling, increased temperature, symptoms of dehydration and/or still sick in one week - STREP A MOLECULAR (POC) - MONOTEST, INFECTIOUS MONO 2. Fever, unspecified fever cause - ICD9: 780.60, ICD10: R50.9 Tylenol and ibuprofen - COVID WITH FLUA+B, ROUTINE 3. Suspected COVID-19 virus infection - ICD9: V01.79, ICD10: Z20.822 Home isolation Testing ordered Comfort measures discussed - see patient instructions. When to seek higher level of care Notified in 24-48 hours with results, available on [employer] - COVID WITH FLUA+B, ROUTINE Diagnosis and treatment plan were discussed and questions were answered to the patient's satisfaction. Pt acknowledged understanding of concepts and follow up plan. Specific signs and symptoms that would indicate the need for higher level of care were discussed in detail warranting prompt ER evaluation. Jaci Marcos APRN.CM documented in this encounter [facility] 08-16-2021 Miscellaneous Notes The following approved medication requests have been transmitted electronically. Pending Prescriptions: Disp Refills VIMPAT 100 mg tab 180 tablet1 Sig: Take one tablet twice a day (along with 200 mg tabs, = 600 mg/day) QUYEN Class: C-V PRAVEEN: Yes VIMPAT 200 mg 180 tablet1 Sig: Take one tablet twice a day (along with 100 mg tabs, = 600 mg/day) QUYEN Class: C-V PRAVEEN: Yes Brigid Eid MD Prescription for BRAND Vimpat, 200 & 100 mg tablets needed. Prescriptions being filled outside of insurance, mom requesting BRAND. -Prescription appropriate, please file and document electronically. Thank you. Routed to Dr. Stanton Bermudez RN documented in this encounter [facility] 08-15-2021 Instructions Brigid Eid MD - 08/15/2021 10:47 AM EDT - Wean [id number] (Briviact) 100 mg tabs - now takes 1 tab twice daily 1 tab once daily for 2 weeks Then stop - Increase lacosamide 200, 50 mg tabs - now takes 250 mg twice daily = 500 mg/d 250 mg in am and 300 mg in pm for 1 week 300 mg twice daily = 600 mg/d - Change pill size as appropriate for final dose - Continue clobazam 20 mg twice daily = 40 mg/d - May maintain driving privileges unless seizures recur - Return in 6 months documented in this encounter [facility] 08-15-2021 History of Present illness Narrative Images from the original note were not included. Neurological [facility] Pediatric Epilepsy Date of Service: 08/15/2021 EPILEPSY CENTER - RETURN VISIT Last Epilepsy Visit: 01/16/2021 AGE: Esterlla is now 16 year old. The patient was accompanied during the visit by the: father We had a visit using: Nemedia I received consent from the patient/parent/guardian to perform the visit using this platform. REASON(S) FOR VISIT: Follow up HISTORY AND CLINICAL COURSE Handedness: right-handed Age at onset of symptoms / seizures: 14 years EPILEPSY CLASSIFICATION: Focal epilepsy (left hemisphere) SEIZURES: Right leg somatosensory -> Right versive -> Generalized tonic clonic seizures MRI: Normal ([facility]) ETIOLOGY: Unknown EEG: Left temporo-parietal sharp waves ([facility] - by report - not confirmed upon review of selected samples) ASSOCIATED CONDITIONS: Anxiety, ADHD Weight by report: 86 kg Blaise had onset of seizures at 14 years of age. On 03/20/2019, Blaise had onset of seizures with a cluster of 3 seizures in about 12 hours. The first involved confusion and garbled speech, and the next 2 evolved to generalized tonic clonic convulsion. In retrospect, about a week earlier, he had a missed seizure in his bedroom - he felt the paranoia that he later realized was his aura, walked to close the door, blacked out, and woke up in his bed with a black eye. On 03/20/2019, Blaise was admitted to [facility] where EEG was interpreted to show left temporo-parietal sharp waves {not appreciated on the samples sent for review] and MRI was normal. He was started on oxcarbazepine. Subsequent lab work showed hyponatremia and neutropenia. In late 03/2019, a transition to levetiracetam was initiated. Six days after starting levetiracetam, and about 1 month after starting oxcarbazepine, he developed a whole body rash. Both drugs were stopped, and he was started on clobazam. Since then, seizures have remained a concern. Features included an aura of paranoia and confusion, garbled speech, and tingling in the right foot which spread to the right leg and the then right side of the head for about 45 seconds. He usually signaled the seizure vocally, saying Mom or Dad or grunting. He then lay down on the floor on his side in a position, and as he blacked out his head jerked to the right with evolution to whole body stiffening and tremor with extension of the arms, fisting of the hands, grunting, labored breathing, and foaming at the mouth, without tongue bite or urine loss (video reviewed). Convulsions lasted 60 to 80 seconds, followed by headache and sleep. After medication was started, the tingling began on the right side of the head, without origin in the right foot and leg. In addition, he has also had a few seizures with the typical aura of paranoia and confusion, with garbled speech and no further evolution. All but one of his seizures have occurred while awake. Sleep deprivation is a trigger. Since onset of seizures in 03/2019, Felix has had the following events. - 04/2019 - 1 seizure on clobazam 20 mg/d - 04/2019 to 01/2020 - episodes of brain fog for a few seconds or minutes, with no outward sign, recurring once every other day - exact nature unclear [plus a panic attack in 07/2019, with normal bedside EEG] - 11/2019 to 02/2020 - 1 to 3 seizure per month, all but one with evolution to generalized tonic clonic convulsion, on brivaracetam and clobazam. Most recent seizure (02/17/2020) occurred on brivaracetam 200 mg/d and clobazam 40 mg/d. Blaise had no seizures while on oxcarbazepine for about a month, but with neutropenia, hyponatremia, and rash (6 days after addition of levetiracetam). He was on clobazam alone until 08/2020 then breviracetam alone for about 6 weeks, and then clobazam was added back in 11/2019 and increased to 40 mg/d by 02/2020. Throughout this period, seizures persisted every 2 to 3 weeks. After a seizure on 02/17/2020, Blaise was started on lacosamide 400 mg/d (with clobazam and brivaracetam), with no further occurrence of his typical seizures or auras since then. In 03/2020 the family elected to increase the dose to 500 mg/d because of blood level on the low side. Follow up trough level on 500 mg/d was 34.5 (usual range 2 -19 mg/l), desmethyllacosamide level 1.7 ug/mL (usual range < 2.6 ug/mL) in 09/2020. He was not experiencing any adverse effects. In 10/2020 we discussed options at length including whether or not to reduce the lacosamide or wean brivaracetam or clobazam. Blaise preferred to make no change, and continue all 3 medications. Concern about seizure recurrence is a trigger for his anxiety. In 01/2021, Blaise again reported brain fog episodes which have recurred over time since at least early 2019. I just kind of zone out and can't understand words that people are saying for about 8 seconds. Witnesses do not notice anything Baseline frequency is about twice per month, although in 11/2020 he experienced 2 per week. Blaise feels that these episodes are related to anxiety - he reported that my mother and my sister both have 'brain fog' as part of their anxiety. He did not feel that these episodes warranted further video EEG or medication change. In 01/2021, Blaise elected to make no change in his regimen. He will start pyridoxine in the thought that this may decrease any effect of the medications on his anxiety. We discussed that if this is not helpful, we should consider possibly weaning briviracetam, which could potentially play a role. In 06/2021, Blaise was seen in consultation by our psychiatrist, Dr. Abbie Mallory. She reported that Blaise expressed interest in possibly weaning briviracetam for its possible role in his depression. She also reported a plan for talk therapy with a psychologist, and treatment with fluoxetine. He will follow with Dr. Dee Matt while Dr. Camargo is on maternity leave. IN SUMMARY - Blaise has epilepsy since 14 years of age. Seizure semiology indicated onset near the leg somatosensory region in the left hemisphere. In [place], MRI was normal and EEG was interpreted to showed left temporo-parietal sharp waves, although samples were normal to our review. His last clear seizure was in 02/2020, before lacosamide was started. Blaise also experiences anxiety, depression, and momentary episodes of brain fog (as do his mother and sister). He is working with Dr. Mallory on this. In 07/2021 he noted that sometimes his brain goes in another direction, and my response time seems to slow down, but I stay completely aware and know what's going on. In 07/2021, we discussed weaning brivaracetam. At the same time, Blaise would like to increase lacosamide from 500 to 600 mg/d for a greater margin of safety. We will also continue clobazam 40 mg/d. REVIEW OF SYSTEMS: The patient / family did not report additional concerns. There were no symptoms suggestive of cardiac, gastrointestinal, or endocrinal dysfunction. No abnormal skin findings. No symptoms suggestive of respiratory, genitourinary or musculoskeletal dysfunction. SEIZURE / EPISODE TYPE(S) Seizure Type 1 Psychic aura -> Right leg then right head somatosensory -> Right versive -> Generalized tonic clonic seizure Onset: 14 years Description: Aura of paranoia and confusion, garbled speech, and tingling in the right foot which spread to the right leg and the then right side of the head for about 45 seconds. He usually signaled the seizure vocally, saying Mom or Dad or grunting. He then lay down on the floor on his side in a position, and as he blacked out his head jerked to the right with evolution to whole body stiffening and tremor with extension of the arms, fisting of the hands, grunting, labored breathing, and foaming at the mouth, without tongue bite or urine loss (video reviewed). Convulsions lasted 60 to 80 seconds, followed by headache and sleep. After medication was started, the tingling began on the right side of the head, without origin in the right foot and leg. In addition, he has also had a few seizures with the typical aura of paranoia and confusion, with garbled speech and no further evolution. All but one of his seizures have occurred while awake. Sleep deprivation is a trigger. ASSOCIATED CONDITIONS, DEVELOPMENTAL HISTORY, AND SCHOOL Blaise experiences ADHD and anxiety, addressed with cognitive behavioral therapy - currently with therapy twice a month. Same and his parents deny and depression or suicidal ideation. His mother describes him as a joyful, optimistic person. Blaise earns A's and B's in regular classes in public school. He enjoys working out, playing soccer, and video games. ANTISEIZURE THERAPIES CURRENT ANTISEIZURE THERAPIES - Brivaracetam 200 mg/d - Clobazam 40 mg/d - Lacosamide 500 mg/d - Lacosamide level 5.9 (usual range 2 -19 mg/l), desmethyllacosamide level 1.9 ug/mL (usual range < 2.6 ug/mL) in 02/2021 Rescue - Intranasal midazolam ANTISEIZURE MEDICATION LEVELS (LAST 3) Antiseizure Med Levels Latest Ref Rng & Units 02/23/2021 10/07/2020 04/06/2020 10HYDROXYCARBAZEPINE 3.0 - 35.0 ug/mL - - - LACOSAMIDE 2.2 - 19.8 ug/mL 5.9 4.5 3.7 PRIOR/CURRENT ANTISEIZURE THERAPIES Brivaracetam Clobazam Lacosamide Levetiracetam Rash after 6 days (with oxcarbazepine, started 1 month prior) Oxcarbazepine Rash after 1 month (with levetiracetam) - also hyponatremia and neutropenia on 1800 mg/d, with no seizures SELECTED UNTRIED OPTIONS - Lacosamide ALLERGIES Allergen Reactions Codeine Other: See Comments, Unknown Aversion Levetiracetam Rash Oxcarbazepine Other: See Comments, Rash Neutropenia, hyponatremia Seasonal Allergies Cough Shellfish Containin* Unknown Pre caution dad is allergic PATIENT-ENTERED DATA: KAYCE-DC Total Score: 16 (10/14/2020 9:53 AM) Ask Suicide Questionnaire (ASQ) 10/14/2020 1. In the past few weeks, have you wished you were ? No 2. In the past few weeks, have you felt that you or your family would be better off if you were ? No 3. In the past week, have you been having thoughts about killing yourself? No 4. Have you ever tried to kill yourself? No 5. Are you having thoughts of killing yourself right now? 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 The following features were noted. GENERAL EXAMINATION: Estrella was alert and in no apparent distress. Respiration was regular and unlabored. NEUROLOGICAL EXAMINATION: Mental status: Alert and interactive, conversational, friendly and cooperative Cranial nerves: Eye movements appear full and no facial asymmetry Motor: Movements of all four limbs appear symmetrical. Cerebellar: No nystagmus, dysmetria, or tremor IMPRESSION Blaise has epilepsy since 14 years of age. Seizure semiology indicated onset near the leg somatosensory region in the left hemisphere. In [place], MRI was normal and EEG was interpreted to showed left temporo-parietal sharp waves, although samples were normal to our review. His last clear seizure was in 02/2020, before lacosamide was started. Blaise also experiences anxiety, depression, and momentary episodes of brain fog (as do his mother and sister). He is working with Dr. Mallory on this. In 07/2021 he noted that sometimes his brain goes in another direction, and my response time seems to slow down, but I stay completely aware and know what's going on. In 07/2021, we discussed weaning brivaracetam. At the same time, Blaise would like to increase lacosamide from 500 to 600 mg/d for a greater margin of safety. We will also continue clobazam 40 mg/d. RECOMMENDATIONS - Wean [id number] (Briviact) 100 mg tabs - now takes 1 tab twice daily 1 tab once daily for 2 weeks Then stop - Increase lacosamide 200, 50 mg tabs - now takes 250 mg twice daily = 500 mg/d 250 mg in am and 300 mg in pm for 1 week 300 mg twice daily = 600 mg/d - Change pill size as appropriate for final dose - Continue clobazam 20 mg twice daily = 40 mg/d - May maintain driving privileges unless seizures recur - Return in 6 months The possible risks, benefits, and alternatives to this plan were discussed. I again went over general epilepsy education points and seizure precautions with the family. Ongoing virtual visits are recommended for this patient, as travel is not advisable due to the COVID-19 pandemic. I spent a total of 40 minutes on the date of the service which included preparing to see the patient, [id number] patient care, completing clinical documentation, counseling and educating the patient/family/caregiver and ordering medications, tests, or procedures. Brigid Eid M.D. Professor of Neurology, [facility] Medicine Staff Physician, [facility] [place] [address] CC: [facility] [place] Referring Team Iva Car MD Referring Team, Pediatrics [phone] [place] [id number] Iva Car [address] [place] [address] The family of: Estrella Carroll [address] [place] [address] [place] [address] documented in this encounter [facility] 07-28-2021 Miscellaneous Notes The following approved medication requests have been transmitted electronically. Pending Prescriptions: Disp Refills lacosamide (VIMPAT) 200 mg 180 tablet1 Sig: Take one tablet twice a day QUYEN Class: C-V PRAVEEN: No lacosamide (VIMPAT) 50 mg tab 180 tablet1 Si tab twice daily (2 pill sizes) QUYEN Class: C-V PRAVEEN: No Brigid Eid MD Date of service: July 28, 2021 Estrella Carroll is a 16 year old. Last seen by Dr. Eid on 01/2021 Now requesting lacosamide refill -Prescription appropriate, please file and document electronically. Thank you. -Routed to Dr. Stanton Bermudez RN Prescription Refill: PLEASE SIGN BY STAFF PROVIDER [place] LAW Requested by: parent Please Call in Caller Contact Number: [phone] (home) [phone] (work) Pharmacy Name: [facility] Number: [id number] Generic/ brand: BRAND 30 or 90 day supply requested: 30 day supply for each ONLY. PARENT IS PAYING OUT OF POCKET Last appointment: 01/16/2021 Next Appointment: 08/15/[address] SPARROW documented in this encounter [facility] 07-24-2021 Miscellaneous Notes The following approved medication requests have been transmitted electronically. Pending Prescriptions: Disp Refills cloBAZam (ONFI) 10 mg tab tablet 360 tablet1 Sig: Take (2) tablets by mouth twice daily (= 40 mg/d) QUYEN Class: C-IV PRAVEEN: No Brigid Eid MD Date of service: July 24, 2021 Estrella Carroll is a 16 year old. Last seen by Dr. Eid on 01/2021 Now requesting clobazam refill -Prescription appropriate, please file and document electronically. Thank you. -Routed to Dr. Stanton Bermudez RN documented in this encounter [facility] 07-13-2021 Miscellaneous Notes Spoke with pharmacy and advised that [facility] does not give out medication samples. She verbalized understanding. Di Bermudez RN Medication Concern Person Calling Juan David Paulino - pharmacist Name of medication Vimpat, Briviact, Nayzilam Concern with medication Pharmacy needs to discuss medication, and is asking if we have samples to give the patient. Patient only has a couple of days of medication on hand. Patient of Dr. Eid documented in this encounter [facility] 06-21-2021 History of Present illness Narrative Images from the original note were not included. [facility] Date of Service: 06/21/2021 EPILEPSY CENTER - CLINICAL UPDATE Last Epilepsy Visit: 01/16/2021 AGE: Estrella is now 16 year old. HISTORY AND CLINICAL COURSE Handedness: right-handed Age at onset of symptoms / seizures: 14 years EPILEPSY CLASSIFICATION: Focal epilepsy (left hemisphere) SEIZURES: Right leg somatosensory -> Right versive -> Generalized tonic clonic seizures MRI: Normal ([place]) ETIOLOGY: Unknown EEG: Left temporo-parietal sharp waves ([place] - by report - not confirmed upon review of selected samples) ASSOCIATED CONDITIONS: Anxiety, ADHD Weight by report: 80 kg Blaise had onset of seizures at 14 years of age. On 03/20/2019, Blaise had onset of seizures with a cluster of 3 seizures in about 12 hours. The first involved confusion and garbled speech, and the next 2 evolved to generalized tonic clonic convulsion. In retrospect, about a week earlier, he had a missed seizure in his bedroom - he felt the paranoia that he later realized was his aura, walked to close the door, blacked out, and woke up in his bed with a black eye. On 03/20/2019, Blaise was admitted to [facility] where EEG was interpreted to show left temporo-parietal sharp waves {not appreciated on the samples sent for review] and MRI was normal. He was started on oxcarbazepine. Subsequent lab work showed hyponatremia and neutropenia. In late 03/2019, a transition to levetiracetam was initiated. Six days after starting levetiracetam, and about 1 month after starting oxcarbazepine, he developed a whole body rash. Both drugs were stopped, and he was started on clobazam. Since then, seizures have remained a concern. Features included an aura of paranoia and confusion, garbled speech, and tingling in the right foot which spread to the right leg and the then right side of the head for about 45 seconds. He usually signaled the seizure vocally, saying Mom or Dad or grunting. He then lay down on the floor on his side in a position, and as he blacked out his head jerked to the right with evolution to whole body stiffening and tremor with extension of the arms, fisting of the hands, grunting, labored breathing, and foaming at the mouth, without tongue bite or urine loss (video reviewed). Convulsions lasted 60 to 80 seconds, followed by headache and sleep. After medication was started, the tingling began on the right side of the head, without origin in the right foot and leg. In addition, he has also had a few seizures with the typical aura of paranoia and confusion, with garbled speech and no further evolution. All but one of his seizures have occurred while awake. Sleep deprivation is a trigger. Since onset of seizures in 03/2019, Felix has had the following events. - 04/2019 - 1 seizure on clobazam 20 mg/d - 04/2019 to 01/2020 - episodes of brain fog for a few seconds or minutes, with no outward sign, recurring once every other day - exact nature unclear [plus a panic attack in 07/2019, with normal bedside EEG] - 11/2019 to 02/2020 - 1 to 3 seizure per month, all but one with evolution to generalized tonic clonic convulsion, on brivaracetam and clobazam. Most recent seizure (02/17/2020) occurred on brivaracetam 200 mg/d and clobazam 40 mg/d. Blaise had no seizures while on oxcarbazepine for about a month, but with neutropenia, hyponatremia, and rash (6 days after addition of levetiracetam). He was on clobazam alone until 08/2020 then breviracetam alone for about 6 weeks, and then clobazam was added back in 11/2019 and increased to 40 mg/d by 02/2020. Throughout this period, seizures persisted every 2 to 3 weeks. After a seizure on 02/17/2020, Blaise was started on lacosamide 400 mg/d (with clobazam and brivaracetam), with no further occurrence of his typical seizures or auras since then. In 03/2020 the family elected to increase the dose to 500 mg/d because of blood level on the low side. Follow up trough level on 500 mg/d was 34.5 (usual range 2 -19 mg/l), desmethyllacosamide level 1.7 ug/mL (usual range < 2.6 ug/mL) in 09/2020. He was not experiencing any adverse effects. In 10/2020 we discussed options at length including whether or not to reduce the lacosamide or wean brivaracetam or clobazam. Blaise preferred to make no change, and continue all 3 medications. Concern about seizure recurrence is a trigger for his anxiety. In 01/2021, Blaise again reported brain fog episodes which have recurred over time since at least early 2019. I just kind of zone out and can't understand words that people are saying for about 8 seconds. Witnesses do not notice anything Baseline frequency is about twice per month, although in 11/2020 he experienced 2 per week. Blaise feels that these episodes are related to anxiety - he reported that my mother and my sister both have 'brain fog' as part of their anxiety. He did not feel that these episodes warranted further video EEG or medication change. In 01/2021, Blaise elected to make no change in his regimen. He will start pyridoxine in the thought that this may decrease any effect of the medications on his anxiety. We discussed that if this is not helpful, we should consider possibly weaning briviracetam, which could potentially play a role. In 06/2021, Blaise was seen in consultation by our psychiatrist, Dr. Abbie Mallory. She reported that Blaise expressed interest in possibly weaning briviracetam for its possible role in his depression. She also reported a plan for talk therapy with a psychologist, and treatment with fluoxetine. He will follow with Dr. Dee Matt while Dr. Camargo is on maternity leave. IN SUMMARY - Blaise has epilepsy since 14 years of age. Seizure semiology indicated onset near the leg somatosensory region in the left hemisphere. In [place], MRI was normal and EEG was interpreted to showed left temporo-parietal sharp waves, although samples were normal to our review. Blaise also experiences anxiety, depression, and momentary episodes of brain fog (as do his mother and sister). He is working with Dr. Mallory on this. II recommended a follow up visit to consider the plan of care. SEIZURE / EPISODE TYPE(S) Seizure Type 1 Psychic aura -> Right leg then right head somatosensory -> Right versive -> Generalized tonic clonic seizure Onset: 14 years Description: Aura of paranoia and confusion, garbled speech, and tingling in the right foot which spread to the right leg and the then right side of the head for about 45 seconds. He usually signaled the seizure vocally, saying Mom or Dad or grunting. He then lay down on the floor on his side in a position, and as he blacked out his head jerked to the right with evolution to whole body stiffening and tremor with extension of the arms, fisting of the hands, grunting, labored breathing, and foaming at the mouth, without tongue bite or urine loss (video reviewed). Convulsions lasted 60 to 80 seconds, followed by headache and sleep. After medication was started, the tingling began on the right side of the head, without origin in the right foot and leg. In addition, he has also had a few seizures with the typical aura of paranoia and confusion, with garbled speech and no further evolution. All but one of his seizures have occurred while awake. Sleep deprivation is a trigger. ASSOCIATED CONDITIONS, DEVELOPMENTAL HISTORY, AND SCHOOL Blaise experiences ADHD and anxiety, addressed with cognitive behavioral therapy - currently with therapy twice a month. Same and his parents deny and depression or suicidal ideation. His mother describes him as a joyful, optimistic person. Blaise earns A's and B's in regular classes in public school. He enjoys working out, playing soccer, and video games. ANTISEIZURE THERAPIES CURRENT ANTISEIZURE THERAPIES - Brivaracetam 200 mg/d - Clobazam 40 mg/d - Lacosamide 500 mg/d - Lacosamide level 5.9 (usual range 2 -19 mg/l), desmethyllacosamide level 1.9 ug/mL (usual range < 2.6 ug/mL) in 09/2020 Rescue - Intranasal midazolam ANTISEIZURE MEDICATION LEVELS (LAST 3) Antiseizure Med Levels Latest Ref Rng & Units 02/23/2021 10/07/2020 04/06/2020 10HYDROXYCARBAZEPINE 3.0 - 35.0 ug/mL - - - LACOSAMIDE 2.2 - 19.8 ug/mL 5.9 4.5 3.7 PRIOR/CURRENT ANTISEIZURE THERAPIES Brivaracetam Clobazam Lacosamide Levetiracetam Rash after 6 days (with oxcarbazepine, started 1 month prior) Oxcarbazepine Rash after 1 month (with levetiracetam) - also hyponatremia and neutropenia on 1800 mg/d, with no seizures SELECTED UNTRIED OPTIONS - Lacosamide ALLERGIES Allergen Reactions Codeine Other: See Comments, Unknown Aversion Levetiracetam Rash Oxcarbazepine Other: See Comments, Rash Neutropenia, hyponatremia Seasonal Allergies Cough Shellfish Containin* Unknown Pre caution dad is allergic PREVIOUS EPILEPSY EVALUATIONS: MRI 03/2019 Normal EEG 03/2019, 19 hours Spikes and sharp waves, regional left temporo-parietal [by report; not clear on the samples sent for review] EEG 07/2019, 30 hours Normal - no recorded seizures EPI-EXPANDED PANEL, 12/2019 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 Seizure semiology indicated onset near the leg somatosensory region in the left hemisphere. In [place], MRI was normal and EEG was interpreted to showed left temporo-parietal sharp waves, although samples were normal to our review. Blaise also experiences anxiety, depression, and momentary episodes of brain fog (as do his mother and sister). He is working with Dr. Mallory on this. RECOMMENDATIONS - Continue the current regimen for now - lacosamide level is stable and appropriate - Return for follow up to consider possibly weaning brivaracetam - May proceed with driving privileges unless seizures recur Ongoing virtual visits are recommended for this patient, as travel is not advisable due to the COVID-19 pandemic. Brigid Eid M.D. Professor of Neurology, [facility] Staff Physician, [facility] [place] [id number] CC: Neurological [place] Referring Team Iva Car MD Referring Team, Pediatrics [phone] [place] [id number] Iva Car [address] [place] [address] The family of: Estrella Carroll [address] [place] [address] documented in this encounter [facility] 07-13-2020 History of Present illness Narrative Radiology Service Progress Note PATIENT NAME: Estrella Carroll DATE OF SERVICE: July 13, 2020 TIME: 1:10 PM PATIENT IDENTITY VERIFICATION COMPLETED USING TWO (2) IDENTIFIERS: Name and Date of confirmed by patient verbally. FALL SCREENING: Has the patient had 2 falls in the last year or 1 fall with injury or currently using an Ambulatory Assistive Device (Walker, Cane, Wheelchair, Crutches, etc.)? No PATIENT GENDER DATA: Male PATIENT RELEVANT IMPLANT DATA REVIEWED: Not Applicable RADIOLOGY DEPARTMENT: General X-ray: Exam(s) Completed: Lower Extremity X-Ray(s): Femur, Left PERIPHERAL IV DATA: Not applicable SIGNED BY: RT Kathy(R) July 13, 2020 1:10 PM documented in this encounter [facility] 03-11-2020 History of Past i llness Narrative Problem Noted Date Resolved Date COVID-19 virus infection 03/11/2020 021 Overview: positive PCR test 03/11/20 Localization-related (focal) (partial) idiopathic epilepsy and epileptic syndromes with seizures of localized onset, not intractable, without status epilepticus 03/22/2019 02/29/2020 Acute appendicitis 03/02/2014 11/24/2015 documented as of this encounter (statuses as of 06/21/2021) [facility]29-2021 History of Past illness Narrative* Problem Noted Date Resolved Date COVID-19 virus infection 03/11/2020 021 Overview: positive PCR test 03/11/20 Localization-related (focal) (partial) idiopathic epilepsy and epileptic syndromes with seizures of localized onset, not intractable, without status epilepticus 03/22/2019 02/29/2020 Acute appendicitis 03/02/2014 11/24/2015 documented as of this encounter (statuses as of 07/03/2021) [facility]2021 History of Past illness Narrative* Problem Noted Date Resolved Date COVID-19 virus infection 03/11/2020 021 Overview: positive PCR test 03/11/20 Localization-related (focal) (partial) idiopathic epilepsy and epileptic syndromes with seizures of localized onset, not intractable, without status epilepticus 03/22/2019 02/29/2020 Acute appendicitis 03/02/2014 11/24/2015 documented as of this encounter (statuses as of 07/12/2021) [facility]2021 History of Past illness Narrative* Problem Noted Date Resolved Date COVID-19 virus infection 03/11/2020 021 Overview: positive PCR test 03/11/20 Localization-related (focal) (partial) idiopathic epilepsy and epileptic syndromes with seizures of localized onset, not intractable, without status epilepticus 03/22/2019 02/29/2020 Acute appendicitis 03/02/2014 11/24/2015 documented as of this encounter (statuses as of 07/13/2021) [facility]2021 History of Past illness Narrative* Problem Noted Date Resolved Date COVID-19 virus infection 03/11/2020 021 Overview: positive PCR test 03/11/20 Localization-related (focal) (partial) idiopathic epilepsy and epileptic syndromes with seizures of localized onset, not intractable, without status epilepticus 03/22/2019 02/29/2020 Acute appendicitis 03/02/2014 11/24/2015 documented as of this encounter (statuses as of 07/17/2021) [facility] History of Past illness Narrative* Problem Noted Date Resolved Date COVID-19 virus infection 03/11/2020 021 Overview: positive PCR test 03/11/20 Localization-related (focal) (partial) idiopathic epilepsy and epileptic syndromes with seizures of localized onset, not intractable, without status epilepticus 03/22/2019 02/29/2020 Acute appendicitis 03/02/2014 11/24/2015 documented as of this encounter (statuses as of 07/24/2021) [facility] History of Past illness Narrative* Problem Noted Date Resolved Date COVID-19 virus infection 03/11/2020 021 Overview: positive PCR test 03/11/20 Localization-related (focal) (partial) idiopathic epilepsy and epileptic syndromes with seizures of localized onset, not intractable, without status epilepticus 03/22/2019 02/29/2020 Acute appendicitis 03/02/2014 11/24/2015 documented as of this encounter (statuses as of 07/24/2021) [facility] History of Past illness Narrative* Problem Noted Date Resolved Date COVID-19 virus infection 03/11/2020 021 Overview: positive PCR test 03/11/20 Localization-related (focal) (partial) idiopathic epilepsy and epileptic syndromes with seizures of localized onset, not intractable, without status epilepticus 03/22/2019 02/29/2020 Acute appendicitis 03/02/2014 11/24/2015 documented as of this encounter (statuses as of 07/31/2021) [facility] History of Past illness Narrative* Problem Noted Date Resolved Date COVID-19 virus infection 03/11/2020 021 Overview: positive PCR test 03/11/20 Localization-related (focal) (partial) idiopathic epilepsy and epileptic syndromes with seizures of localized onset, not intractable, without status epilepticus 03/22/2019 02/29/2020 Acute appendicitis 03/02/2014 11/24/2015 documented as of this encounter (statuses as of 07/31/2021) [facility] History of Past illness Narrative* Problem Noted Date Resolved Date COVID-19 virus infection 03/11/2020 021 Overview: positive PCR test 03/11/20 Localization-related (focal) (partial) idiopathic epilepsy and epileptic syndromes with seizures of localized onset, not intractable, without status epilepticus 03/22/2019 02/29/2020 Acute appendicitis 03/02/2014 11/24/2015 documented as of this encounter (statuses as of 08/15/2021) [facility] History of Past illness Narrative* Problem Noted Date Resolved Date COVID-19 virus infection 03/11/2020 021 Overview: positive PCR test 03/11/20 Localization-related (focal) (partial) idiopathic epilepsy and epileptic syndromes with seizures of localized onset, not intractable, without status epilepticus 03/22/2019 02/29/2020 Acute appendicitis 03/02/2014 11/24/2015 documented as of this encounter (statuses as of 08/16/2021) [facility] History of Past illness Narrative* Problem Noted Date Resolved Date COVID-19 virus infection 03/11/2020 021 Overview: positive PCR test 03/11/20 Localization-related (focal) (partial) idiopathic epilepsy and epileptic syndromes with seizures of localized onset, not intractable, without status epilepticus 03/22/2019 02/29/2020 Acute appendicitis 03/02/2014 11/24/2015 documented as of this encounter (statuses as of 08/16/2021) [facility] History of Past illness Narrative* Problem Noted Date Resolved Date COVID-19 virus infection 03/11/2020 021 Overview: positive PCR test 03/11/20 Localization-related (focal) (partial) idiopathic epilepsy and epileptic syndromes with seizures of localized onset, not intractable, without status epilepticus 03/22/2019 02/29/2020 Acute appendicitis 03/02/2014 11/24/2015 documented as of this encounter (statuses as of 09/05/2021) [facility] History of Past illness Narrative* Problem Noted Date Resolved Date COVID-19 virus infection 03/11/2020 021 Overview: positive PCR test 03/11/20 Localization-related (focal) (partial) idiopathic epilepsy and epileptic syndromes with seizures of localized onset, not intractable, without status epilepticus 03/22/2019 02/29/2020 Acute appendicitis 03/02/2014 11/24/2015 documented as of this encounter (statuses as of 09/05/2021) [facility] History of Past illness Narrative* Problem Noted Date Resolved Date COVID-19 virus infection 03/11/2020 021 Overview: positive PCR test 03/11/20 Localization-related (focal) (partial) idiopathic epilepsy and epileptic syndromes with seizures of localized onset, not intractable, without status epilepticus 03/22/2019 02/29/2020 Acute appendicitis 03/02/2014 11/24/2015 documented as of this encounter (statuses as of 09/07/2021) [facility] History of Past illness Narrative* Problem Noted Date Resolved Date COVID-19 virus infection 03/11/2020 021 Overview: positive PCR test 03/11/20 Localization-related (focal) (partial) idiopathic epilepsy and epileptic syndromes with seizures of localized onset, not intractable, without status epilepticus 03/22/2019 02/29/2020 Acute appendicitis 03/02/2014 11/24/2015 documented as of this encounter (statuses as of 09/08/2021) [facility] History of Past illness Narrative* Problem Noted Date Resolved Date COVID-19 virus infection 03/11/2020 021 Overview: positive PCR test 03/11/20 Localization-related (focal) (partial) idiopathic epilepsy and epileptic syndromes with seizures of localized onset, not intractable, without status epilepticus 03/22/2019 02/29/2020 Acute appendicitis 03/02/2014 11/24/2015 documented as of this encounter (statuses as of 09/25/2021) [facility] History of Past illness Narrative* Problem Noted Date Resolved Date COVID-19 virus infection 03/11/2020 021 Overview: positive PCR test 03/11/20 Localization-related (focal) (partial) idiopathic epilepsy and epileptic syndromes with seizures of localized onset, not intractable, without status epilepticus 03/22/2019 02/29/2020 Acute appendicitis 03/02/2014 11/24/2015 documented as of this encounter (statuses as of 09/26/2021) [facility] History of Past illness Narrative* Problem Noted Date Resolved Date COVID-19 virus infection 03/11/2020 021 Overview: positive PCR test 03/11/20 Localization-related (focal) (partial) idiopathic epilepsy and epileptic syndromes with seizures of localized onset, not intractable, without status epilepticus 03/22/2019 02/29/2020 Acute appendicitis 03/02/2014 11/24/2015 documented as of this encounter (statuses as of 10/25/2021) [facility] History of Past illness Narrative* Problem Noted Date Resolved Date COVID-19 virus infection 03/11/2020 021 Overview: positive PCR test 03/11/20 Localization-related (focal) (partial) idiopathic epilepsy and epileptic syndromes with seizures of localized onset, not intractable, without status epilepticus 03/22/2019 02/29/2020 Acute appendicitis 03/02/2014 11/24/2015 documented as of this encounter (statuses as of 11/07/2021) [facility] History of Past illness Narrative* Problem Noted Date Resolved Date COVID-19 virus infection 03/11/2020 021 Overview: positive PCR test 03/11/20 Localization-related (focal) (partial) idiopathic epilepsy and epileptic syndromes with seizures of localized onset, not intractable, without status epilepticus 03/22/2019 02/29/2020 Acute appendicitis 03/02/2014 11/24/2015 documented as of this encounter (statuses as of 12/20/2021) [facility] History of Past illness Narrative* Problem Noted Date Resolved Date COVID-19 virus infection 03/11/2020 021 Overview: positive PCR test 03/11/20 Localization-related (focal) (partial) idiopathic epilepsy and epileptic syndromes with seizures of localized onset, not intractable, without status epilepticus 03/22/2019 02/29/2020 Acute appendicitis 03/02/2014 11/24/2015 documented as of this encounter (statuses as of 01/14/2022) [facility] History of Past illness Narrative* Problem Noted Date Resolved Date COVID-19 virus infection 03/11/2020 021 Overview: positive PCR test 03/11/20 Localization-related (focal) (partial) idiopathic epilepsy and epileptic syndromes with seizures of localized onset, not intractable, without status epilepticus 03/22/2019 02/29/2020 Acute appendicitis 03/02/2014 11/24/2015 documented as of this encounter (statuses as of 01/17/2022) [facility]21 History of Past illness Narrative* Problem Noted Date Resolved Date COVID-19 virus infection 03/11/2020 021 Overview: positive PCR test 03/11/20 Localization-related (focal) (partial) idiopathic epilepsy and epileptic syndromes with seizures of localized onset, not intractable, without status epilepticus 03/22/2019 02/29/2020 Acute appendicitis 03/02/2014 11/24/2015 documented as of this encounter (statuses as of 03/03/2022) [facility]2021 History of Past illness Narrative* Problem Noted Date Resolved Date COVID-19 virus infection 03/11/2020 021 Overview: positive PCR test 03/11/20 Localization-related (focal) (partial) idiopathic epilepsy and epileptic syndromes with seizures of localized onset, not intractable, without status epilepticus 03/22/2019 02/29/2020 Acute appendicitis 03/02/2014 11/24/2015 documented as of this encounter (statuses as of 03/21/2022) [facility] History of Past illness Narrative* Problem Noted Date Resolved Date COVID-19 virus infection 03/11/2020 021 Overview: positive PCR test 03/11/20 Localization-related (focal) (partial) idiopathic epilepsy and epileptic syndromes with seizures of localized onset, not intractable, without status epilepticus 03/22/2019 02/29/2020 Acute appendicitis 03/02/2014 11/24/2015 documented as of this encounter (statuses as of 03/29/2022) [facility] History of Past illness Narrative* Problem Noted Date Resolved Date COVID-19 virus infection 03/11/2020 021 Overview: positive PCR test 03/11/20 Localization-related (focal) (partial) idiopathic epilepsy and epileptic syndromes with seizures of localized onset, not intractable, without status epilepticus 03/22/2019 02/29/2020 Acute appendicitis 03/02/2014 11/24/2015 documented as of this encounter (statuses as of 03/29/2022) [facility] History of Past illness Narrative* Problem Noted Date Resolved Date COVID-19 virus infection 03/11/2020 021 Overview: positive PCR test 03/11/20 Localization-related (focal) (partial) idiopathic epilepsy and epileptic syndromes with seizures of localized onset, not intractable, without status epilepticus 03/22/2019 02/29/2020 Acute appendicitis 03/02/2014 11/24/2015 documented as of this encounter (statuses as of 05/05/2022) [facility] History of Past illness Narrative* Problem Noted Date Resolved Date COVID-19 virus infection 03/11/2020 021 Overview: positive PCR test 03/11/20 Localization-related (focal) (partial) idiopathic epilepsy and epileptic syndromes with seizures of localized onset, not intractable, without status epilepticus 03/22/2019 02/29/2020 Acute appendicitis 03/02/2014 11/24/2015 documented as of this encounter (statuses as of 05/07/2022) [facility] History of Past illness Narrative* Problem Noted Date Resolved Date COVID-19 virus infection 03/11/2020 021 Overview: positive PCR test 03/11/20 Localization-related (focal) (partial) idiopathic epilepsy and epileptic syndromes with seizures of localized onset, not intractable, without status epilepticus 03/22/2019 02/29/2020 Acute appendicitis 03/02/2014 11/24/2015 documented as of this encounter (statuses as of 05/07/2022) [facility] History of Past illness Narrative* Problem Noted Date Resolved Date COVID-19 virus infection 03/11/2020 021 Overview: positive PCR test 03/11/20 Localization-related (focal) (partial) idiopathic epilepsy and epileptic syndromes with seizures of localized onset, not intractable, without status epilepticus 03/22/2019 02/29/2020 Acute appendicitis 03/02/2014 11/24/2015 documented as of this encounter (statuses as of 05/08/2022) [facility]21 History of Past illness Narrative* Problem Noted Date Resolved Date COVID-19 virus infection 03/11/2020 021 Overview: positive PCR test 03/11/20 Localization-related (focal) (partial) idiopathic epilepsy and epileptic syndromes with seizures of localized onset, not intractable, without status epilepticus 03/22/2019 02/29/2020 Acute appendicitis 03/02/2014 11/24/2015 documented as of this encounter (statuses as of 05/08/2022) [facility] History of Past illness Narrative* Problem Noted Date Resolved Date COVID-19 virus infection 03/11/2020 021 Overview: positive PCR test 03/11/20 Localization-related (focal) (partial) idiopathic epilepsy and epileptic syndromes with seizures of localized onset, not intractable, without status epilepticus 03/22/2019 02/29/2020 Acute appendicitis 03/02/2014 11/24/2015 documented as of this encounter (statuses as of 05/09/2022) [facility] History of Past illness Narrative* Problem Noted Date Resolved Date COVID-19 virus infection 03/11/2020 021 Overview: positive PCR test 03/11/20 Localization-related (focal) (partial) idiopathic epilepsy and epileptic syndromes with seizures of localized onset, not intractable, without status epilepticus 03/22/2019 02/29/2020 Acute appendicitis 03/02/2014 11/24/2015 documented as of this encounter (statuses as of 06/14/2022) [address]29-2021 History of Past illness Narrative* Problem Noted Date Resolved Date COVID-19 virus infection 03/11/2020 021 Overview: positive PCR test 03/11/20 Localization-related (focal) (partial) idiopathic epilepsy and epileptic syndromes with seizures of localized onset, not intractable, without status epilepticus 03/22/2019 02/29/2020 Acute appendicitis 03/02/2014 11/24/2015 documented as of this encounter (statuses as of 06/21/2022) [address]29-2021 History of Past illness Narrative* Problem Noted Date Resolved Date COVID-19 virus infection 03/11/2020 021 Overview: positive PCR test 03/11/20 Localization-related (focal) (partial) idiopathic epilepsy and epileptic syndromes with seizures of localized onset, not intractable, without status epilepticus 03/22/2019 02/29/2020 Acute appendicitis 03/02/2014 11/24/2015 documented as of this encounter (statuses as of 07/12/2022) [facility]21 History of Past illness Narrative* Problem Noted Date Diagnosed Date Resolved Date COVID-19 virus infection 03/11/2020 Overview: positive PCR test 03/11/20 Localization-related (focal) (partial) idiopathic epilepsy and epileptic syndromes with seizures of localized onset, not intractable, without status epilepticus 03/22/2019 02/29/2020 Acute appendicitis 03/02/2014 6 documented as of this encounter (statuses as of 08/24/2022) [facility]2021 History of Past illness Narrative* Problem Noted Date Diagnosed Date Resolved Date COVID-19 virus infection 03/11/2020 Overview: positive PCR test 03/11/20 Localization-related (focal) (partial) idiopathic epilepsy and epileptic syndromes with seizures of localized onset, not intractable, without status epilepticus 03/22/2019 02/29/2020 Acute appendicitis 03/02/2014 6 documented as of this encounter (statuses as of 08/28/2022) [facility]21 History of Past illness Narrative* Problem Noted Date Diagnosed Date Resolved Date COVID-19 virus infection 03/11/2020 Overview: positive PCR test 03/11/20 Localization-related (focal) (partial) idiopathic epilepsy and epileptic syndromes with seizures of localized onset, not intractable, without status epilepticus 03/22/2019 02/29/2020 Acute appendicitis 03/02/2014 6 documented as of this encounter (statuses as of 09/05/2022) [facility] History of Past illness Narrative* Problem Noted Date Diagnosed Date Resolved Date COVID-19 virus infection 03/11/2020 Overview: positive PCR test 03/11/20 Localization-related (focal) (partial) idiopathic epilepsy and epileptic syndromes with seizures of localized onset, not intractable, without status epilepticus 03/22/2019 02/29/2020 Acute appendicitis 03/02/2014 6 documented as of this encounter (statuses as of 09/06/2022) [facility] History of Past illness Narrative* Problem Noted Date Diagnosed Date Resolved Date COVID-19 virus infection 03/11/2020 Overview: positive PCR test 03/11/20 Localization-related (focal) (partial) idiopathic epilepsy and epileptic syndromes with seizures of localized onset, not intractable, without status epilepticus 03/22/2019 02/29/2020 Acute appendicitis 03/02/2014 6 documented as of this encounter (statuses as of 09/11/2022) [facility]21 History of Past illness Narrative* Problem Noted Date Diagnosed Date Resolved Date COVID-19 virus infection 03/11/2020 Overview: positive PCR test 03/11/20 Localization-related (focal) (partial) idiopathic epilepsy and epileptic syndromes with seizures of localized onset, not intractable, without status epilepticus 03/22/2019 02/29/2020 Acute appendicitis 03/02/2014 6 documented as of this encounter (statuses as of 09/17/2022) [facility]2021 History of Past illness Narrative* Problem Noted Date Diagnosed Date Resolved Date COVID-19 virus infection 03/11/2020 Overview: positive PCR test 03/11/20 Localization-related (focal) (partial) idiopathic epilepsy and epileptic syndromes with seizures of localized onset, not intractable, without status epilepticus 03/22/2019 02/29/2020 Acute appendicitis 03/02/2014 6 documented as of this encounter (statuses as of 10/25/2022) [facility] History of Past illness Narrative* Problem Noted Date Diagnosed Date Resolved Date COVID-19 virus infection 03/11/2020 Overview: positive PCR test 03/11/20 Localization-related (focal) (partial) idiopathic epilepsy and epileptic syndromes with seizures of localized onset, not intractable, without status epilepticus 03/22/2019 02/29/2020 Acute appendicitis 03/02/2014 6 documented as of this encounter (statuses as of 11/13/2022) [facility] History of Past illness Narrative* Problem Noted Date Diagnosed Date Resolved Date COVID-19 virus infection 03/11/2020 Overview: positive PCR test 03/11/20 Localization-related (focal) (partial) idiopathic epilepsy and epileptic syndromes with seizures of localized onset, not intractable, without status epilepticus 03/22/2019 02/29/2020 Acute appendicitis 03/02/2014 6 documented as of this encounter (statuses as of 11/17/2022) [facility]21 History of Past illness Narrative* Problem Noted Date Diagnosed Date Resolved Date COVID-19 virus infection 03/11/2020 Overview: positive PCR test 03/11/20 Localization-related (focal) (partial) idiopathic epilepsy and epileptic syndromes with seizures of localized onset, not intractable, without status epilepticus 03/22/2019 02/29/2020 Acute appendicitis 03/02/2014 6 documented as of this encounter (statuses as of 11/17/2022) [facility]21 History of Past illness Narrative* Problem Noted Date Diagnosed Date Resolved Date COVID-19 virus infection 03/11/2020 Overview: positive PCR test 03/11/20 Localization-related (focal) (partial) idiopathic epilepsy and epileptic syndromes with seizures of localized onset, not intractable, without status epilepticus 03/22/2019 02/29/2020 Acute appendicitis 03/02/2014 6 documented as of this encounter (statuses as of 11/21/2022) [facility]21 History of Past illness Narrative* Problem Noted Date Diagnosed Date Resolved Date COVID-19 virus infection 03/11/2020 Overview: positive PCR test 03/11/20 Localization-related (focal) (partial) idiopathic epilepsy and epileptic syndromes with seizures of localized onset, not intractable, without status epilepticus 03/22/2019 02/29/2020 Acute appendicitis 03/02/2014 6 documented as of this encounter (statuses as of 12/25/2022) [facility]2021 History of Past illness Narrative* Problem Noted Date Diagnosed Date Resolved Date COVID-19 virus infection 03/11/2020 Overview: positive PCR test 03/11/20 Localization-related (focal) (partial) idiopathic epilepsy and epileptic syndromes with seizures of localized onset, not intractable, without status epilepticus 03/22/2019 02/29/2020 Acute appendicitis 03/02/2014 6 documented as of this encounter (statuses as of 01/19/2023) [facility]01-29-2021 History of Past illness Narrative* Problem Noted Date Diagnosed Date Resolved Date COVID-19 virus infection 03/11/2020 Overview: positive PCR test 03/11/20 Localization-related (focal) (partial) idiopathic epilepsy and epileptic syndromes with seizures of localized onset, not intractable, without status epilepticus 03/22/2019 02/29/2020 Acute appendicitis 03/02/2014 6 documented as of this encounter (statuses as of 03/31/2023) [facility]01-[facility]-2021 History of Past illness Narrative* Problem Noted Date Diagnosed Date Resolved Date COVID-19 virus infection 03/11/2020 Overview: positive PCR test 03/11/20 Localization-related (focal) (partial) idiopathic epilepsy and epileptic syndromes with seizures of localized onset, not intractable, without status epilepticus 03/22/2019 02/29/2020 Acute appendicitis 03/02/2014 6 documented as of this encounter (statuses as of 04/01/2023) [facility]01-[facility]-2021 History of Past illness Narrative* Problem Noted Date Diagnosed Date Resolved Date COVID-19 virus infection 03/11/2020 Overview: positive PCR test 03/11/20 Localization-related (focal) (partial) idiopathic epilepsy and epileptic syndromes with seizures of localized onset, not intractable, without status epilepticus 03/22/2019 02/29/2020 Acute appendicitis 03/02/2014 6 documented as of this encounter (statuses as of 04/19/2023) [facility]2021 History of Past illness Narrative* Problem Noted Date Diagnosed Date Resolved Date COVID-19 virus infection 03/11/2020 Overview: positive PCR test 03/11/20 Localization-related (focal) (partial) idiopathic epilepsy and epileptic syndromes with seizures of localized onset, not intractable, without status epilepticus 03/22/2019 02/29/2020 Acute appendicitis 03/02/2014 6 documented as of this encounter (statuses as of 04/27/2023) [facility]2021 History of Past illness Narrative* Problem Noted Date Diagnosed Date Resolved Date COVID-19 virus infection 03/11/2020 Overview: positive PCR test 03/11/20 Localization-related (focal) (partial) idiopathic epilepsy and epileptic syndromes with seizures of localized onset, not intractable, without status epilepticus 03/22/2019 02/29/2020 Acute appendicitis 03/02/2014 6 documented as of this encounter (statuses as of 04/28/2023) [facility]2021 History of Past illness Narrative* Problem Noted Date Diagnosed Date Resolved Date COVID-19 virus infection 03/11/2020 Overview: positive PCR test 03/11/20 Localization-related (focal) (partial) idiopathic epilepsy and epileptic syndromes with seizures of localized onset, not intractable, without status epilepticus 03/22/2019 02/29/2020 Acute appendicitis 03/02/2014 6 documented as of this encounter (statuses as of 05/22/2023) [facility] [place] [facility] Diagnosis Partial epilepsy with intractable epilepsy (HCC) Localization-related (focal) (partial) epilepsy and epileptic syndromes with simple partial seizures, with intractable [facility] Partial epilepsy with intractable epilepsy (HCC) Localization-related (focal) (partial) epilepsy and epileptic syndromes with simple partial seizures, with intractable epilepsy [facility] Diagnosis Partial epilepsy (HCC)- Primary Localization-related (focal) (partial) epilepsy and epileptic syndromes with simple partial seizures, without mention of intractable epilepsy [facility] Diagnosis Partial epilepsy (HCC)- Primary Localization-related (focal) (partial) epilepsy and epileptic syndromes with simple partial seizures, without mention of intractable epilepsy Partial epilepsy with intractable epilepsy (HCC) Localization-related (focal) (partial) epilepsy and epileptic syndromes with simple partial seizures, with intractable epilepsy [facility] Diagnosis Sore throat- Primary Acute pharyngitis Fever, unspecified fever cause Suspected COVID-19 virus infection [facility]* Diagnosis Infectious mononucleosis without complication, infectious mononucleosis due to unspecified organism- Primary [facility]* Diagnosis Partial epilepsy (HCC) Localization-related (focal) (partial) epilepsy and epileptic syndromes with simple partial seizures, without mention of intractable epilepsy Partial epilepsy with intractable epilepsy (HCC) Localization-related (focal) (partial) epilepsy and epileptic syndromes with simple partial seizures, with intractable epilepsy [facility] Diagnosis Partial epilepsy with intractable epilepsy (HCC) Localization-related (focal) (partial) epilepsy and epileptic syndromes with simple partial seizures, with intractable epilepsy [facility] Diagnosis Partial epilepsy (HCC)- Primary Localization-related (focal) (partial) epilepsy and epileptic syndromes with simple partial seizures, without mention of intractable epilepsy Partial epilepsy with intractable epilepsy (HCC) Localization-related (focal) (partial) epilepsy and epileptic syndromes with simple partial seizures, with intractable epilepsy [facility] Diagnosis Encounter for general adult medical examination without abnormal findings- Primary Unspecified general medical examination [facility] Partial epilepsy with intractable epilepsy (HCC) Localization-related (focal) (partial) epilepsy and epileptic syndromes with simple partial seizures, with intractable epilepsy [facility] Diagnosis Partial epilepsy (HCC) Localization-related (focal) (partial) epilepsy and epileptic syndromes with simple partial seizures, without mention of intractable epilepsy [facility] Diagnosis Pharyngitis, unspecified etiology- Primary Viral illness Unspecified viral infection, in conditions classified elsewhere and of unspecified site [facility] [place] [facility] Diagnosis Acute urticaria- Primary Other specified urticaria Viral upper respiratory tract infection Acute upper respiratory infections of unspecified site [facility] Diagnosis Partial epilepsy with intractable epilepsy (HCC) Localization-related (focal) (partial) epilepsy and epileptic syndromes with simple partial seizures, with intractable epilepsy [facility] [place] [facility] Diagnosis Partial epilepsy (HCC)- Primary Localization-related (focal) (partial) epilepsy and epileptic syndromes with simple partial seizures, without mention of intractable epilepsy [facility] Diagnosis Partial epilepsy (HCC) Localization-related (focal) (partial) epilepsy and epileptic syndromes with simple partial seizures, without mention of intractable epilepsy [facility] Diagnosis Partial epilepsy (HCC)- Primary Localization-related (focal) (partial) epilepsy and epileptic syndromes with simple partial seizures, without mention of intractable epilepsy [facility] Diagnosis Partial epilepsy with intractable epilepsy (HCC) Localization-related (focal) (partial) epilepsy and epileptic syndromes with simple partial seizures, with intractable epilepsy [facility] Diagnosis Partial epilepsy with intractable epilepsy (HCC) Localization-related (focal) (partial) epilepsy and epileptic syndromes with simple partial seizures, with intractable epilepsy [facility] Diagnosis Swelling of right eyelid- Primary Acute upper respiratory infection Acute upper respiratory infections of unspecified site [facility]* Diagnosis Partial epilepsy (HCC)- Primary Localization-related (focal) (partial) epilepsy and epileptic syndromes with simple partial seizures, without mention of intractable epilepsy [facility] [place] [facility] Diagnosis Sore throat- Primary Acute pharyngitis Exposure to influenza Contact with or exposure to other viral diseases [facility] [place] [facility] Diagnosis Sore throat- Primary Acute pharyngitis documented [facility] this encounter [facility] [place] [facility]* Diagnosis Pain of left clavicle documented in this encounter [facility]* Diagnosis Left thigh pain Pain in limb documented in this encounter [facility]* Diagnosis Partial epilepsy (HCC)- Primary Localization-related (focal) (partial) epilepsy and epileptic syndromes with simple partial seizures, without mention of intractable epilepsy [facility] [place] [facility]* Diagnosis Biceps strain, right, initial encounter- Primary documented in [facility] [place] [facility]* Diagnosis Sore throat- Primary Acute pharyngitis documented [facility] [place] [facility]* Diagnosis Viral syndrome- Primary Unspecified viral infection, in conditions classified elsewhere and of unspecified site documented in this encounter [facility]* Diagnosis Partial epilepsy with intractable epilepsy (HCC)- Primary Localization-related (focal) (partial) epilepsy and epileptic syndromes with simple partial seizures, with intractable epilepsy documented in this encounter [facility] for referral (narrative)* Diagnostic Procedure Only (Routine) - Closed Specialty Diagnoses / Procedures Referred By Alphonse cleveland Referred To Contact XR IMAGING Diagnoses Pain of left clavicle Procedures XR CLAVICLE 2V LEFT RADEX CLAVICLE COMPLETE Iva Car MD [address] [place] [address] Xr Imaging [id number] Referral ID Status Reason Start Date Expiration Date V isits Requested Visits Authorized [id number] Closed Auto-Generate d Referral 05/31/2022 06/30/2023 1 1 [facility] for visit Narrative* Diagnostic Procedure Only (Routine) - Closed Specialty Diagnoses / Procedures Referred By Alphonse cleveland Referred To Contact XR IMAGING Diagnoses Pain of left clavicle Procedures XR CLAVICLE 2V LEFT RADEX CLAVICLE COMPLETE Iva Car MD [address] [place] [address] [place] [address] Referral ID Status Reason Start Date Expiration Date V isits Requested Visits Authorized [id number] Closed Auto-Generate d Referral 05/31/2022 06/30/2023 1 1 [facility] Summary Purpose Family History No Family History Records FoundNo Family History Records FoundNo Family History Records FoundNo Family History Records FoundNo Family History Records FoundNo Family History Records FoundNo Family History Records Found Advance Directives No Advanced Directives Records FoundNo Advanced Directives Records FoundNo Advanced Directives Records FoundNo Advanced Directives Records FoundNo Advanced Directives Records FoundNo Advanced Directives Records FoundNo Advanced Directives Records Found Health Concerns Infection Onset Date Last Indicated Resolved Time COVID-19 Rule-Out 09/05/2021 09/05/2021 Infection Onset Date Last Indicated Resolved Time COVID-19 Rule-Out 06/14/2022 06/14/2022 Additional Source Comments (unrecognized sect ion and content) No Status Records FoundNo Status Records FoundNo Status Records FoundNo Status Records FoundNo Status Records FoundNo Status Records FoundNo Status Records Found INFORMATION SOURCE (unrecogn ized section and content) DATE CREATED AUTHOR 05/18/2019 [facility] ([place]) DATE CREATED AUTHOR AUTHOR'S ORGANIZ ATION 07/15/2019 [facility] DATE CREATED AUTHOR AUTHOR'S ORGANIZ ATION 05/21/2020 [facility] DATE CREATED AUTHOR AUTHOR'S ORGANIZ ATION 04/04/2021 [facility] DATE CREATED AUTHOR AUTHOR'S ORGANIZ ATION 12/10/2023 [facility] DATE CREATED AUTHOR AUTHOR'S ORGANIZ ATION 12/27/2023 [facility] DATE CREATED AUTHOR AUTHOR'S ORGANIZ ATION 05/03/2024 [facility] Source Comments (unrecognize d section and content) In the event this informatio n is protected by the Federal Confidentiality of Alcohol and Drug Abuse Patient Records regulations: The Federal rules restrict any use of the information to criminally investigate or prosecute any alcohol or drug abuse patient.[facility] the event this information is protected by the Federal Confidentiality of Alcohol and Drug Abuse Patient Records regulations: The Federal rules restrict any use of the information to criminally investigate or prosecute any alcohol or drug abuse patient.[facility] the event this information is protected by the Federal Confidentiality of Alcohol and Drug Abuse Patient Records regulations: The Federal rules restrict any use of the information to criminally investigate or prosecute any alcohol or drug abuse patient.[facility] the event this information is protected by the Federal Confidentiality of Alcohol and Drug Abuse Patient Records regulations: The Federal rules restrict any use of the information to criminally investigate or prosecute any alcohol or drug abuse patient.[facility] the event this information is protected by the Federal Confidentiality of Alcohol and Drug Abuse Patient Records regulations: The Federal rules restrict any use of the information to criminally investigate or prosecute any alcohol or drug abuse patient.[facility] the event this information is protected by the Federal Confidentiality of Alcohol and Drug Abuse Patient Records regulations: The Federal rules restrict any use of the information to criminally investigate or prosecute any alcohol or drug abuse patient.[facility] the event this information is protected by the Federal Confidentiality of Alcohol and Drug Abuse Patient Records regulations: The Federal rules restrict any use of the information to criminally investigate or prosecute any alcohol or drug abuse patient.[facility] the event this information is protected by the Federal Confidentiality of Alcohol and Drug Abuse Patient Records regulations: The Federal rules restrict any use of the information to criminally investigate or prosecute any alcohol or drug abuse patient.[facility] the event this information is protected by the Federal Confidentiality of Alcohol and Drug Abuse Patient Records regulations: The Federal rules restrict any use of the information to criminally investigate or prosecute any alcohol or drug abuse patient.[facility] the event this information is protected by the Federal Confidentiality of Alcohol and Drug Abuse Patient Records regulations: The Federal rules restrict any use of the information to criminally investigate or prosecute any alcohol or drug abuse patient.[facility] the event this information is protected by the Federal Confidentiality of Alcohol and Drug Abuse Patient Records regulations: The Federal rules restrict any use of the information to criminally investigate or prosecute any alcohol or drug abuse patient.[facility] the event this information is protected by the Federal Confidentiality of Alcohol and Drug Abuse Patient Records regulations: The Federal rules restrict any use of the information to criminally investigate or prosecute any alcohol or drug abuse patient.[facility]In the event this information is protected by the Federal Confidentiality of Alcohol and Drug Abuse Patient Records regulations: The Federal rules restrict any use of the information to criminally investigate or prosecute any alcohol or drug abuse patient.[facility] the event this information is protected by the Federal Confidentiality of Alcohol and Drug Abuse Patient Records regulations: The Federal rules restrict any use of the information to criminally investigate or prosecute any alcohol or drug abuse patient.[facility] the event this information is protected by the Federal Confidentiality of Alcohol and Drug Abuse Patient Records regulations: The Federal rules restrict any use of the information to criminally investigate or prosecute any alcohol or drug abuse patient.[facility] the event this information is protected by the Federal Confidentiality of Alcohol and Drug Abuse Patient Records regulations: The Federal rules restrict any use of the information to criminally investigate or prosecute any alcohol or drug abuse patient.[facility] the event this information is protected by the Federal Confidentiality of Alcohol and Drug Abuse Patient Records regulations: The Federal rules restrict any use of the information to criminally investigate or prosecute any alcohol or drug abuse patient.[facility] the event this information is protected by the Federal Confidentiality of Alcohol and Drug Abuse Patient Records regulations: The Federal rules restrict any use of the information to criminally investigate or prosecute any alcohol or drug abuse patient.[facility] the event this information is protected by the Federal Confidentiality of Alcohol and Drug Abuse Patient Records regulations: The Federal rules restrict any use of the information to criminally investigate or prosecute any alcohol or drug abuse patient.[facility] the event this information is protected by the Federal Confidentiality of Alcohol and Drug Abuse Patient Records regulations: The Federal rules restrict any use of the information to criminally investigate or prosecute any alcohol or drug abuse patient.[facility] the event this information is protected by the Federal Confidentiality of Alcohol and Drug Abuse Patient Records regulations: The Federal rules restrict any use of the information to criminally investigate or prosecute any alcohol or drug abuse patient.[facility] the event this information is protected by the Federal Confidentiality of Alcohol and Drug Abuse Patient Records regulations: The Federal rules restrict any use of the information to criminally investigate or prosecute any alcohol or drug abuse patient.[facility] the event this information is protected by the Federal Confidentiality of Alcohol and Drug Abuse Patient Records regulations: The Federal rules restrict any use of the information to criminally investigate or prosecute any alcohol or drug abuse patient.[facility] the event this information is protected by the Federal Confidentiality of Alcohol and Drug Abuse Patient Records regulations: The Federal rules restrict any use of the information to criminally investigate or prosecute any alcohol or drug abuse patient.[facility] the event this information is protected by the Federal Confidentiality of Alcohol and Drug Abuse Patient Records regulations: The Federal rules restrict any use of the information to criminally investigate or prosecute any alcohol or drug abuse patient.[facility] the event this information is protected by the Federal Confidentiality of Alcohol and Drug Abuse Patient Records regulations: The Federal rules restrict any use of the information to criminally investigate or prosecute any alcohol or drug abuse patient.[facility] the event this information is protected by the Federal Confidentiality of Alcohol and Drug Abuse Patient Records regulations: The Federal rules restrict any use of the information to criminally investigate or prosecute any alcohol or drug abuse patient.[facility] the event this information is protected by the Federal Confidentiality of Alcohol and Drug Abuse Patient Records regulations: The Federal rules restrict any use of the information to criminally investigate or prosecute any alcohol or drug abuse patient.[facility] the event this information is protected by the Federal Confidentiality of Alcohol and Drug Abuse Patient Records regulations: The Federal rules restrict any use of the information to criminally investigate or prosecute any alcohol or drug abuse patient.[facility]In the event this information is protected by the Federal Confidentiality of Alcohol and Drug Abuse Patient Records regulations: The Federal rules restrict any use of the information to criminally investigate or prosecute any alcohol or drug abuse patient.[facility] the event this information is protected by the Federal Confidentiality of Alcohol and Drug Abuse Patient Records regulations: The Federal rules restrict any use of the information to criminally investigate or prosecute any alcohol or drug abuse patient.[facility] the event this information is protected by the Federal Confidentiality of Alcohol and Drug Abuse Patient Records regulations: The Federal rules restrict any use of the information to criminally investigate or prosecute any alcohol or drug abuse patient.[facility] the event this information is protected by the Federal Confidentiality of Alcohol and Drug Abuse Patient Records regulations: The Federal rules restrict any use of the information to criminally investigate or prosecute any alcohol or drug abuse patient.[facility]In the event this information is protected by the Federal Confidentiality of Alcohol and Drug Abuse Patient Records regulations: The Federal rules restrict any use of the information to criminally investigate or prosecute any alcohol or drug abuse patient.[facility]In the event this information is protected by the Federal Confidentiality of Alcohol and Drug Abuse Patient Records regulations: The Federal rules restrict any use of the information to criminally investigate or prosecute any alcohol or drug abuse patient.[facility]In the event this information is protected by the Federal Confidentiality of Alcohol and Drug Abuse Patient Records regulations: The Federal rules restrict any use of the information to criminally investigate or prosecute any alcohol or drug abuse patient.[facility]In the event this information is protected by the Federal Confidentiality of Alcohol and Drug Abuse Patient Records regulations: The Federal rules restrict any use of the information to criminally investigate or prosecute any alcohol or drug abuse patient.[facility]In the event this information is protected by the Federal Confidentiality of Alcohol and Drug Abuse Patient Records regulations: The Federal rules restrict any use of the information to criminally investigate or prosecute any alcohol or drug abuse patient.[facility]In the event this information is protected by the Federal Confidentiality of Alcohol and Drug Abuse Patient Records regulations: The Federal rules restrict any use of the information to criminally investigate or prosecute any alcohol or drug abuse patient.[facility] ClinicIn the event this information is protected by the Federal Confidentiality of Alcohol and Drug Abuse Patient Records regulations: The Federal rules restrict any use of the information to criminally investigate or prosecute any alcohol or drug abuse patient.[facility] ClinicIn the event this information is protected by the Federal Confidentiality of Alcohol and Drug Abuse Patient Records regulations: The Federal rules restrict any use of the information to criminally investigate or prosecute any alcohol or drug abuse patient.[facility] ClinicIn the event this information is protected by the Federal Confidentiality of Alcohol and Drug Abuse Patient Records regulations: The Federal rules restrict any use of the information to criminally investigate or prosecute any alcohol or drug abuse patient.[facility] ClinicIn the event this information is protected by the Federal Confidentiality of Alcohol and Drug Abuse Patient Records regulations: The Federal rules restrict any use of the information to criminally investigate or prosecute any alcohol or drug abuse patient.[facility] ClinicIn the event this information is protected by the Federal Confidentiality of Alcohol and Drug Abuse Patient Records regulations: The Federal rules restrict any use of the information to criminally investigate or prosecute any alcohol or drug abuse patient.[facility] ClinicIn the event this information is protected by the Federal Confidentiality of Alcohol and Drug Abuse Patient Records regulations: The Federal rules restrict any use of the information to criminally investigate or prosecute any alcohol or drug abuse patient.[facility] ClinicIn the event this information is protected by the Federal Confidentiality of Alcohol and Drug Abuse Patient Records regulations: The Federal rules restrict any use of the information to criminally investigate or prosecute any alcohol or drug abuse patient.[facility] ClinicIn the event this information is protected by the Federal Confidentiality of Alcohol and Drug Abuse Patient Records regulations: The Federal rules restrict any use of the information to criminally investigate or prosecute any alcohol or drug abuse patient.[facility] ClinicIn the event this information is protected by the Federal Confidentiality of Alcohol and Drug Abuse Patient Records regulations: The Federal rules restrict any use of the information to criminally investigate or prosecute any alcohol or drug abuse patient.[facility] ClinicIn the event this information is protected by the Federal Confidentiality of Alcohol and Drug Abuse Patient Records regulations: The Federal rules restrict any use of the information to criminally investigate or prosecute any alcohol or drug abuse patient.[facility] ClinicIn the event this information is protected by the Federal Confidentiality of Alcohol and Drug Abuse Patient Records regulations: The Federal rules restrict any use of the information to criminally investigate or prosecute any alcohol or drug abuse patient.[facility] ClinicIn the event this information is protected by the Federal Confidentiality of Alcohol and Drug Abuse Patient Records regulations: The Federal rules restrict any use of the information to criminally investigate or prosecute any alcohol or drug abuse patient.[facility] ClinicIn the event this information is protected by the Federal Confidentiality of Alcohol and Drug Abuse Patient Records regulations: The Federal rules restrict any use of the information to criminally investigate or prosecute any alcohol or drug abuse patient.[facility] ClinicIn the event this information is protected by the Federal Confidentiality of Alcohol and Drug Abuse Patient Records regulations: The Federal rules restrict any use of the information to criminally investigate or prosecute any alcohol or drug abuse patient.[facility] ClinicIn the event this information is protected by the Federal Confidentiality of Alcohol and Drug Abuse Patient Records regulations: The Federal rules restrict any use of the information to criminally investigate or prosecute any alcohol or drug abuse patient.[facility] ClinicIn the event this information is protected by the Federal Confidentiality of Alcohol and Drug Abuse Patient Records regulations: The Federal rules restrict any use of the information to criminally investigate or prosecute any alcohol or drug abuse patient.[facility] ClinicIn the event this information is protected by the Federal Confidentiality of Alcohol and Drug Abuse Patient Records regulations: The Federal rules restrict any use of the information to criminally investigate or prosecute any alcohol or drug abuse patient.[facility] ClinicIn the event this information is protected by the Federal Confidentiality of Alcohol and Drug Abuse Patient Records regulations: The Federal rules restrict any use of the information to criminally investigate or prosecute any alcohol or drug abuse patient.[facility] ClinicIn the event this information is protected by the Federal Confidentiality of Alcohol and Drug Abuse Patient Records regulations: The Federal rules restrict any use of the information to criminally investigate or prosecute any alcohol or drug abuse patient.[facility] ClinicIn the event this information is protected by the Federal Confidentiality of Alcohol and Drug Abuse Patient Records regulations: The Federal rules restrict any use of the information to criminally investigate or prosecute any alcohol or drug abuse patient.[facility] ClinicIn the event this information is protected by the Federal Confidentiality of Alcohol and Drug Abuse Patient Records regulations: The Federal rules restrict any use of the information to criminally investigate or prosecute any alcohol or drug abuse patient.[facility] ClinicIn the event this information is protected by the Federal Confidentiality of Alcohol and Drug Abuse Patient Records regulations: The Federal rules restrict any use of the information to criminally investigate or prosecute any alcohol or drug abuse patient.[facility] ClinicIn the event this information is protected by the Federal Confidentiality of Alcohol and Drug Abuse Patient Records regulations: The Federal rules restrict any use of the information to criminally investigate or prosecute any alcohol or drug abuse patient.[facility] ClinicIn the event this information is protected by the Federal Confidentiality of Alcohol and Drug Abuse Patient Records regulations: The Federal rules restrict any use of the information to criminally investigate or prosecute any alcohol or drug abuse patient.[facility] ClinicIn the event this information is protected by the Federal Confidentiality of Alcohol and Drug Abuse Patient Records regulations: The Federal rules restrict any use of the information to criminally investigate or prosecute any alcohol or drug abuse patient.[facility] ClinicIn the event this information is protected by the Federal Confidentiality of Alcohol and Drug Abuse Patient Records regulations: The Federal rules restrict any use of the information to criminally investigate or prosecute any alcohol or drug abuse patient.[facility] ClinicIn the event this information is protected by the Federal Confidentiality of Alcohol and Drug Abuse Patient Records regulations: The Federal rules restrict any use of the information to criminally investigate or prosecute any alcohol or drug abuse patient.[facility] ClinicIn the event this information is protected by the Federal Confidentiality of Alcohol and Drug Abuse Patient Records regulations: The Federal rules restrict any use of the information to criminally investigate or prosecute any alcohol or drug abuse patient.[facility] ClinicIn the event this information is protected by the Federal Confidentiality of Alcohol and Drug Abuse Patient Records regulations: The Federal rules restrict any use of the information to criminally investigate or prosecute any alcohol or drug abuse patient.[facility] ClinicIn the event this information is protected by the Federal Confidentiality of Alcohol and Drug Abuse Patient Records regulations: The Federal rules restrict any use of the information to criminally investigate or prosecute any alcohol or drug abuse patient.[facility] ClinicIn the event this information is protected by the Federal Confidentiality of Alcohol and Drug Abuse Patient Records regulations: The Federal rules restrict any use of the information to criminally investigate or prosecute any alcohol or drug abuse patient.[facility] ClinicIn the event this information is protected by the Federal Confidentiality of Alcohol and Drug Abuse Patient Records regulations: The Federal rules restrict any use of the information to criminally investigate or prosecute any alcohol or drug abuse patient.[facility] ClinicIn the event this information is protected by the Federal Confidentiality of Alcohol and Drug Abuse Patient Records regulations: The Federal rules restrict any use of the information to criminally investigate or prosecute any alcohol or drug abuse patient.[facility] ClinicIn the event this information is protected by the Federal Confidentiality of Alcohol and Drug Abuse Patient Records regulations: The Federal rules restrict any use of the information to criminally investigate or prosecute any alcohol or drug abuse patient.[facility] ClinicIn the event this information is protected by the Federal Confidentiality of Alcohol and Drug Abuse Patient Records regulations: The Federal rules restrict any use of the information to criminally investigate or prosecute any alcohol or drug abuse patient.[facility] ClinicIn the event this information is protected by the Federal Confidentiality of Alcohol and Drug Abuse Patient Records regulations: The Federal rules restrict any use of the information to criminally investigate or prosecute any alcohol or drug abuse patient.[facility] ClinicIn the event this information is protected by the Federal Confidentiality of Alcohol and Drug Abuse Patient Records regulations: The Federal rules restrict any use of the information to criminally investigate or prosecute any alcohol or drug abuse patient.[facility] Reason for Visit (unrecogniz ed section and content) Reason Comments Clinical Update Reason Comments Medication Problem Vimpat, Briviact, Na yzilam - Pharmacy Needs Verification Reason Onset Date Comments Refill Request 07/24/2021 Reason Onset Date Comments Refill Request 07/28/2021 Reason Comments Follow Up Reason Onset Date Comments Refill Request 08/16/2021 Reason Comments Sore Throat St x 2-3 days Reason Comments Patient Question Reason Comments Results Reason Comments Follow Up seen in 09/05 - te sted pos for mono - still having a ST - sx have improved since then Reason Comments Forms BMV Reason Onset Date Comments Refill Request 11/06/2021 Reason Onset Date Comments Refill Request 12/19/2021 Reason Comments Information Reason Comments Medication Problem Reason Comments Well Child Reason Comments Patient Update Reason Onset Date Comments Refill Request 05/05/2022 Reason Comments Seizures Reason Comments Cough ST, fever, chest con gestion x2 days Reason Comments Rash X2-3 days, arms, abd omen, back, no known fevers. Reason Onset Date Comments Refill Request 07/11/2022 Reason Comments General Incident Reason Comments Treatment Planning Reason Comments Other Return call Reason Onset Date Comments Refill Request 11/12/2022 Reason Onset Date Comments Refill Request 11/16/2022 Reason Comments medication concern lacosamide Reason Comments Patient Update Doing well on curren t dose of LCM Reason Onset Date Comments Refill Request 01/18/2023 Reason Comments swollen right eyelid, X 3 -4 day's scratchy throat Reason Comments New Patient Transfer of care Epilepsy Reason Comments Sore Throat fever x last night Reason Comments Medication Problem Should AM dose be re peated as patient vomited within 1 hour? Reason Onset Date Comments Refill Request 07/30/2023 Reason Comments Sore Throat ST and congestion x 3 days Specialty Diagnoses / Procedures Referred By Alphonse cleveland Referred To Contact Radiology / [facility] Diagnoses XR FEMUR GENERAL 2V AP/LAT LT main lobby Procedures XR GENERAL 7 Iva Car MD [address] [place] [address] [facility] [address] [place] [address] Referral ID Status Reason Start Date Expiration Date Visits Re quested Visits Authorized [id number] Closed 07/13/2020 10/11/2020 1 1 Reason Comments medication concern vimpat, onfi Reason Comments Follow Up Epilepsy Reason Comments back injury Reason Comments Refill Request Reason Comments Back and Arm pain R arm and back pain x4 days Reason Onset Date Comments Refill Request 02/06/2024 Reason Comments Sore Throat ST x 4 days Reason Comments Abdominal Pain Pressure in head(BETHEA) , hot and cold chills x 1 day Care Teams (unrecognized sec tion and content) Gear Shaper Set Up Operator Relationship Specialty Start Date End Date Iva Car MD [address] [place], [place] [id number] PCP - General Pediatrics 12/30/09 Iva Car MD [address] [place] [address] [place] Referring Team Pediatrics 04/28/20 Gear Shaper Set Up Operator Relationship Specialty Start Date End Date Iva Car MD [address] [facility] [place] [address] PCP - General Pediatrics 12/30/09 Iva Car MD [address] [facility] [place] [address] NI Referring Team Pediatrics 04/28/20 Gear Shaper Set Up Operator Relationship Specialty Start Date End Date Iva Car MD [address] [facility] [place] [address] PCP - General Pediatrics 12/30/09 Iva Car MD [address] [facility] [place] [address] NI Referring Team Pediatrics 04/28/20 Gear Shaper Set Up Operator Relationship Specialty Start Date End Date Iva Car MD [address] [facility] [place] [address] PCP - General Pediatrics 12/30/09 Iva Car MD [address] [facility] [place] [address] NI Referring Team Pediatrics 04/28/20 Gear Shaper Set Up Operator Relationship Specialty Start Date End Date Iva Car MD [address] [facility] [place] [address] PCP - General Pediatrics 12/30/09 Iva Car MD [address] [facility] [place] [address] NI Referring Team Pediatrics 04/28/20 Gear Shaper Set Up Operator Relationship Specialty Start Date End Date Iva Car MD [address] [facility] [place] [address] PCP - General Pediatrics 12/30/09 Iva Car MD [address] [facility] [place] [address] NI Referring Team Pediatrics 04/28/20 Gear Shaper Set Up Operator Relationship Specialty Start Date End Date Iva Car MD [address] [facility] [place] [address] PCP - General Pediatrics 12/30/09 Iva Car MD [address] [facility] [place] [address] NI Referring Team Pediatrics 04/28/20 Gear Shaper Set Up Operator Relationship Specialty Start Date End Date Iva Car MD [address] [facility] [place] [address] PCP - General Pediatrics 12/30/09 Iva Car MD [address] [facility] [place] [address] NI Referring Team Pediatrics 04/28/20 Gear Shaper Set Up Operator Relationship Specialty Start Date End Date Iva Car MD [address] [facility] [place] [address] PCP - General Pediatrics 12/30/09 Iva Car MD [address] [facility] [place] [address] NI Referring Team Pediatrics 04/28/20 Gear Shaper Set Up Operator Relationship Specialty Start Date End Date Iva Car MD [address] [facility] [place] [address] PCP - General Pediatrics 12/30/09 Iva Car MD [address] [facility] [place] [address] NI Referring Team Pediatrics 04/28/20 Gear Shaper Set Up Operator Relationship Specialty Start Date End Date Iva Car MD [address] [facility] [place] [address] PCP - General Pediatrics 12/30/09 Iva Car MD [address] [facility] [place] [address] NI Referring Team Pediatrics 04/28/20 Gear Shaper Set Up Operator Relationship Specialty Start Date End Date Iva Car MD [address] [facility] [place] [address] PCP - General Pediatrics 12/30/09 Iva Car MD [address] [facility] [place] [address] NI Referring Team Pediatrics 04/28/20 Gear Shaper Set Up Operator Relationship Specialty Start Date End Date Iva Car MD [address] [facility] [place] [address] PCP - General Pediatrics 12/30/09 Iva Car MD [address] [facility] [place] [address] NI Referring Team Pediatrics 04/28/20 Gear Shaper Set Up Operator Relationship Specialty Start Date End Date Iva Car MD [address] [facility] [place] [address] PCP - General Pediatrics 12/30/09 Iva Car MD [address] [facility] [place] [address] NI Referring Team Pediatrics 04/28/20 Gear Shaper Set Up Operator Relationship Specialty Start Date End Date Iva Car MD [address] [facility] [place] [address] PCP - General Pediatrics 12/30/09 Iva Car MD [address] [facility] [place] [address] NI Referring Team Pediatrics 04/28/20 Gear Shaper Set Up Operator Relationship Specialty Start Date End Date Iva Car MD [address] [facility] [place] [address] PCP - General Pediatrics 12/30/09 Iva Car MD [address] [facility] [place] [address] NI Referring Team Pediatrics 04/28/20 Gear Shaper Set Up Operator Relationship Specialty Start Date End Date Iva Car MD [address] [place] [address] PCP - General Pediatrics 12/30/09 Iva Car MD [address] [place] [address] NI Referring Team Pediatrics 04/28/20 Gear Shaper Set Up Operator Relationship Specialty Start Date End Date Iva Car MD [address] [facility] [place] [address] PCP - General Pediatrics 12/30/09 Iva Car MD [address] [facility] [place] [address] NI Referring Team Pediatrics 04/28/20 Gear Shaper Set Up Operator Relationship Specialty Start Date End Date Iva Car MD [address] [facility] [place] [address] PCP - General Pediatrics 12/30/09 Iva Car MD [address] [facility] [place] [address] NI Referring Team Pediatrics 04/28/20 Gear Shaper Set Up Operator Relationship Specialty Start Date End Date Iva Car MD [address] [facility] [place] [address] PCP - General Pediatrics 12/30/09 Iva Car MD [address] [facility] [place] [address] NI Referring Team Pediatrics 04/28/20 Gear Shaper Set Up Operator Relationship Specialty Start Date End Date Iva Car MD [address] [facility] [place], [place] [address] PCP - General Pediatrics 12/30/09 Iva Car MD [address] [place] [address] NI Referring Team Pediatrics 04/28/20 Gear Shaper Set Up Operator Relationship Specialty Start Date End Date Iva Car MD [address] [place] [address] PCP - General Pediatrics 12/30/09 Iva Car MD [address] [facility] [place] [address] NI Referring Team Pediatrics 04/28/20 Gear Shaper Set Up Operator Relationship Specialty Start Date End Date Iva Car MD [address] [place] [address] PCP - General Pediatrics 12/30/09 Iva Car MD [address] [facility] [place] [address] NI Referring Team Pediatrics 04/28/20 Gear Shaper Set Up Operator Relationship Specialty Start Date End Date Iva Car MD [address] [place] [address] PCP - General Pediatrics 12/30/09 Iva Car MD [address] [facility] [place] [address] NI Referring Team Pediatrics 04/28/20 Gear Shaper Set Up Operator Relationship Specialty Start Date End Date Iva Car MD [address] [facility] [place], [place] [address] PCP - General Pediatrics 12/30/09 Iva Car MD [address] [facility] [place], [place] [address] NI Referring Team Pediatrics 04/28/20 Gear Shaper Set Up Operator Relationship Specialty Start Date End Date Iva Car MD [address] [place] [address] PCP - General Pediatrics 12/30/09 Iva Car MD [address] [place], [place] [address] NI Referring Team Pediatrics 04/28/20 Gear Shaper Set Up Operator Relationship Specialty Start Date End Date Iva Car MD [address] [place] [address] PCP - General Pediatrics 12/30/09 Iva Car MD [address] [place] [address] NI Referring Team Pediatrics 04/28/20 Gear Shaper Set Up Operator Relationship Specialty Start Date End Date Iva Car MD [address] [place] [address] PCP - General Pediatrics 12/30/09 Iva Car MD [address] [place] [address] NI Referring Team Pediatrics 04/28/20 Gear Shaper Set Up Operator Relationship Specialty Start Date End Date Iva Car MD [address] [place] [address] PCP - General Pediatrics 12/30/09 Iva Car MD [address] [place] [address] NI Referring Team Pediatrics 04/28/20 Gear Shaper Set Up Operator Relationship Specialty Start Date End Date Iva Car MD [address] [facility] [place] [address] PCP - General Pediatrics 12/30/09 Elle Thomason MD [address] [facility] [address] [place], [place] [id number] NI Referring Team Neurology 02/29/20 10/13/20 Iva Car MD [address] [place], [place] [id number] NI Referring Team Pediatrics 04/28/20 Gear Shaper Set Up Operator Relationship Specialty Start Date End Date Iva Car MD [address] [place], [place] [id number] PCP - General Pediatrics 12/30/09 Iva Car MD [address] [place], [place] [address] NI Referring Team Pediatrics 04/28/20 Gear Shaper Set Up Operator Relationship Specialty Start Date End Date Iva Car MD [address] [place], [place] [id number] PCP - General Pediatrics 12/30/09 Iva Car MD [address] [place], [place] [id number] NI Referring Team Pediatrics 04/28/20 FOR RECORDS PERTAINING TO PATIENTS WHO ARE OR HAVE BEEN ENROLLED IN A CHEMICAL DEPENDENCY/SUBSTANCEABUSE PROGRAM, SOME INFORMATION MAY BE OMITTED. This clinical summary was aggregated from multiple sources. Caution should be exercised in using it in the provision of clinical care. This summary normalizes information from multiple sources, and as a consequence, information in this document may materially change the coding, format and clinical context of patient data. In addition, data may be omitted in some cases. CLINICAL DECISIONS SHOULD BE BASED ON THE PRIMARY CLINICAL RECORDS. [facility]. provides no warranty or guarantee of the accuracy or completeness of information in this document.
--- NOTE | 2024-07-14 01:38 | EKG12_ITS ---
Test Reason : OD Blood Pressure : */* mmHG Vent. Rate : 46 BPM Atrial Rate : 46 BPM P-R Int : 206 ms QRS Dur : 90 ms QT Int : 428 ms P-R-T Axes : 45 61 37 degrees QTcB Int : 374 ms Sinus bradycardia with sinus arrhythmia Otherwise normal ECG Confirmed by LU SIMS, HA ([id number]), advertising editor ALBINA WILSON ([id number]) on 07/20/2024 7:03:25 AM Referred By: Confirmed By: HA LEIGH MD
--- NOTE | 2024-07-14 01:43 | PCA ---
NO OLD EKG
[2024-07-14] MEDS: 0.9% Normal Saline (500mL Bag) 500 ML 999 ML IV (01:53)
[2024-07-14 01:55] LABS: Absolute Lymphocyte Count 2.39 X10^3/uL (0.83-4.51); Absolute Neutrophil Count 3.5 X10^3/uL (2.0-7.7); Basophil# 0.02 X10^3/uL; Basophil% 0.3 % (0-1); Eosinophil# 0.18 X10^3/uL; Eosinophils% 2.6 % (0-5); Hematocrit 39.3 % (40-54); Lymphocyte # 2.39 X10^3/ul (0.83-4.51); Lymphocyte % 35.1 % (19-41); Mean Corp Hgb Conc 35.6 g/dL (32-36); Mean Corpuscular Hgb 29.4 pg (27.0-32.0); Mean Corpuscular Volume 82.4 fL (80-94); Mean Platelet Vol. 8.9 fl (6.2-12.0); Monocyte# 0.66 X10^3/uL; Monocyte% 9.7 % (0-10); NRBC Flagged by Analyzer 0 % (0-5); Neutrophil # 3.54 X10^3/uL (2.7-7.7); Neutrophil % 52.2 % (47-70); Platelet Count 264 K/mm3 (150-450); RBC Distribution Width CV 12.3 % (11.6-14.6); RBC Distribution Width SD 37.2 fl (35.1-43.9); Red Blood Count 4.77 M/mm3 (4.6-6.2); White Blood Count 6.8 K/mm3 (4.4-11.0)
[2024-07-14 02:00] VITALS: BP 120/64; PULSE 64; O2SAT 97
[2024-07-14 02:55] LABS: Anion Gap 13 (5-15); BUN 14 mg/dL (4-19); BUN/Creat Ratio 12.2 RATIO (10-20); Calcium,Total 9.6 mg/dL (7.6-11.0); Carbon Dioxide 25.5 mmol/L (21.0-32.0); Chloride 103 mmol/L (98-108); Creatinine, Serum 1.13 mg/dL (0.70-1.20); EST Glomerular Filtration Rate 95 (>60); Estimated Creatinine Clearance 120.23 ml/min (50-250); Glucose 86 mg/dL (70-99); Potassium 3.4 mmol/L (3.3-5.1); Sodium Level 141 mmol/L (133-145)
[2024-07-14 03:00] VITALS: BP 113/51; PULSE 56; RESP 16; O2SAT 99
[2024-07-14 03:12] VITALS: BP 113/51; PULSE 57; RESP 16; TEMP 36.2; O2SAT 98
== END 2024-07-14 03:36 | disposition home or self-care (01) ==
PROVIDERS: Emergency Provider Emergency Medicine; PCP Pediatrics; Visit Provider Emergency Medicine
DX: R40.0 Somnolence (principal); G40.909 Epilepsy, unspecified, not intractable, without status epilepticus; R53.83 Other fatigue; F17.210 Nicotine dependence, cigarettes, uncomplicated; T42.6X1A Poisoning by other antiepileptic and sedative-hypnotic drugs, accidental (unintentional), initial encounter; T42.4X1A Poisoning by benzodiazepines, accidental (unintentional), initial encounter
CPT/HCPCS: 80048; 85025; 93005; 96360; 99282; A4216